=== PATIENT | female | born 1940 | race Caucasian/White ===

== ENCOUNTER → 2016-09-18 | Outpatient (CLI) | payer MEDICARE, BC ==
[~2016-09-18] MED LIST: ACET325 PO; ALPR0.5T99 PO; ASPI81 PO; ATEN1TAB75 PO; B COTAB7 PO; CALC600T34 PO; CIPR500T4 PO; GUAN1 PO; MAXZ25 PO; METR500I3 PO; ROSU5 PO; TELM40 PO
== END ==
LOC: PLAB 10:32
PROVIDERS: ATTEND Podiatrist Foot & Ankle Surgery
DX: M10.071 Idiopathic gout, right ankle and foot (principal)
CPT/HCPCS: 36415; 84550

== ENCOUNTER → 2016-11-12 | Outpatient (CLI) | payer MEDICARE, BC ==
[2016-11-12 09:02] LABS: HEMATOCRIT 38.6 % (35.0-46.0); MEAN CELL VOLUME 89.7 FL (80.0-100.0); MEAN CORPUSCULAR HEMOGLOBIN 29.9 PG (27.0-34.0); MEAN CORPUSCULAR HGB CONC 33.3 % (32.0-36.0); PLATELET COUNT 191 TH/MM3 (150-450); RED CELL DISTRIBUTION WIDTH 14.5 % (11.6-17.2); REVIEW FLAG FINAL; WHITE BLOOD COUNT 4.3 TH/MM3 (4.0-11.0)
[2016-11-12 10:44] LABS: ALKALINE PHOSPHATASE 67 U/L (45-117); ALT (GPT) 26 U/L (10-53); ANION GAP 9 MEQ/L (5-15); AST (GOT) 20 U/L (15-37); BICARBONATE 24.8 MEQ/L (21.0-32.0); BLOOD UREA NITROGEN 23 MG/DL (7-18); CHLORIDE 104 MEQ/L (98-107); GLOMERULAR FILTRATION RATE 49 ML/MIN (>89); GLUCOSE,FASTING 99 MG/DL (74-99); HDL CHOLESTEROL 38.2 MG/DL (40.0-60.0); LDL CHOLESTEROL 83 MG/DL (0-99); LDL CHOLESTEROL DIRECT 109 MG/DL (0-99); POTASSIUM 4.9 MEQ/L (3.5-5.1); SODIUM (NA) 138 MEQ/L (136-145); TOTAL BILIRUBIN ADULT 0.4 MG/DL (0.2-1.0); URIC ACID 9.7 MG/DL (2.6-6.0)
== END ==
LOC: PLAB 07:44
PROVIDERS: ATTEND Internal Medicine
DX: M10.40 Other secondary gout, unspecified site (principal); I10 Essential (primary) hypertension; E78.5 Hyperlipidemia, unspecified
CPT/HCPCS: 36415; 80053; 80061; 83721; 84550; 85027

== ENCOUNTER → 2017-02-12 | Outpatient (CLI) | payer MEDICARE, BC | LOC: PLAB 11:31 | PROVIDERS: ATTEND Internal Medicine | DX: M10.00 Idiopathic gout, unspecified site (principal) | CPT/HCPCS: 36415; 84550 ==

== ENCOUNTER → 2017-03-11 | Outpatient (CLI) | payer MEDICARE, BC ==
[2017-03-11 09:18] LABS: HEMATOCRIT 38.2 % (35.0-46.0); MEAN CELL VOLUME 94.3 FL (80.0-100.0); MEAN CORPUSCULAR HEMOGLOBIN 30.9 PG (27.0-34.0); MEAN CORPUSCULAR HGB CONC 32.7 % (32.0-36.0); PLATELET COUNT 203 TH/MM3 (150-450); RED BLOOD COUNT 4.05 MIL/MM3 (4.00-5.30); RED CELL DISTRIBUTION WIDTH 15.4 % (11.6-17.2); REVIEW FLAG FINAL; WHITE BLOOD COUNT 4.3 TH/MM3 (4.0-11.0)
[2017-03-11 09:37] LABS: ALT (GPT) 21 U/L (10-53); ANION GAP 10 MEQ/L (5-15); AST (GOT) 19 U/L (15-37); BICARBONATE 24.3 MEQ/L (21.0-32.0); BLOOD UREA NITROGEN 21 MG/DL (7-18); CHLORIDE 102 MEQ/L (98-107); GLOMERULAR FILTRATION RATE 54 ML/MIN (>89); GLUCOSE,FASTING 102 MG/DL (74-99); SODIUM (NA) 136 MEQ/L (136-145); URIC ACID 6.3 MG/DL (2.6-6.0)
[2017-03-11 09:45] LABS: ALKALINE PHOSPHATASE 64 U/L (45-117); HDL CHOLESTEROL 39.7 MG/DL (40.0-60.0); LDL CHOLESTEROL 71 MG/DL (0-99); LDL CHOLESTEROL DIRECT 93 MG/DL (0-99); TOTAL BILIRUBIN ADULT 0.3 MG/DL (0.2-1.0)
== END ==
LOC: PLAB 07:47
PROVIDERS: ATTEND Internal Medicine
DX: I10 Essential (primary) hypertension (principal); E78.5 Hyperlipidemia, unspecified
CPT/HCPCS: 36415; 80053; 80061; 83721; 84550; 85027

== ENCOUNTER 2017-04-12 11:26 | Inpatient (IN) | payer MEDICARE, BC ==
[~2017-04-12] VITALS: Ht 157.5 cm; Wt 82.5 kg
[2017-04-12] VITALS (7 sets, daily range): BP systolic 144–191; BP diastolic 79–100; PULSE 68–81; RESP 16–18; TEMP 96.5–98.6; O2SAT 96–98
--- NOTE | 2017-04-12 11:40 | PD ---
HPI Chief Complaint: Abdominal Pain Time Seen by Provider: 11:36 Travel History International Travel<30 days: No Contact w/Intl Traveler<30days: No Traveled to known affect area: No History of Present Illness HPI This patient complains of abdominal pain. Location is left lower quadrant. Symptoms are severe. Duration 2.5 hours. She has nausea but no active vomiting or diarrhea or rectal bleeding or fever. She has history of diverticulitis and thinks it may be that acting up again. Symptoms have no alleviating factors. PFSH Past Medical History Arthritis: Yes (generalized) Asthma: No Blood Disorders: No Anxiety: Yes Heart Rhythm Problems: Yes (tachycardia) Cancer: No Cardiovascular Problems: Yes High Cholesterol: No Chemotherapy: No Chest Pain: No Congestive Heart Failure: No COPD: No Cerebrovascular Accident: Yes (two previous TIAs) Diabetes: No Diminished Hearing: No Diverticulitis: Yes Endocrine: No Gastrointestinal Disorders: Yes GERD: Yes Genitourinary: No Headaches: Yes Hiatal Hernia: No Hypertension: Yes Immune Disorder: No Kidney Stones: No Musculoskeletal: Yes Neurologic: Yes (5 MM BRAIN ANEURYSM) Psychiatric: Yes Reproductive: No Respiratory: No Migraines: No Myocardial Infarction: Yes (X 1 IN 2004) Radiation Therapy: No Renal Failure: No Seizures: No Thyroid Disease: No Ulcer: No Tetanus Vaccination: > 5 Years Influenza Vaccination: Yes ?: Not Menopausal: Yes Past Surgical History Abdominal Surgery: Yes (RECTAL FISSURE REPAIRED 1990) AICD: No Arteriovenous Shunt: No Body Medical Devices: 2 STENTS Cardiac Surgery: Yes (ANGIOPLASTY IN SEP 2004) Cholecystectomy: Yes (IN 1990) Coronary Stent: Yes (X 2) Insulin Pump: No Joint Replacement: No Pacemaker: No Tonsillectomy: Yes Other Surgery: Yes (PELVIC SLINGS TIMES 2) Social History Alcohol Use: No Tobacco Use: No Substance Use: No Allergies-Medications (Allergen,Severity, Reaction): Coded Allergies: FD and C yellow no.10 (quinoline ye (Unverified Allergy, Severe, 04/12/17) FD and C yellow no.6 (sunset yellow (Unverified Allergy, Severe, 04/12/17) Iodinated Contrast- Oral and IV Dye (Verified Allergy, Severe, Anaphylaxis , 04/12/17) codeine (Unverified Allergy, Severe, Nausea/Vomiting, 04/12/17) red dye (Unverified Allergy, Severe, 04/12/17) diazepam (Unverified Allergy, Intermediate, 04/12/17) adhesive (Unverified Allergy, Mild, SORES, 04/12/17) levofloxacin (Unverified Allergy, Mild, ITCHING, 04/12/17) buspirone (Unverified Adverse Reaction, Intermediate, 04/12/17) Uncoded Allergies: IV THALIUM TEST ? (Allergy, Mild, 03/21/06) Reported Meds & Prescriptions Reported Meds & Active Scripts Active Reported Flagyl (Metronidazole) 250 Mg Tab 250 Mg PO TID Allopurinol 300 Mg Tab 150 Mg PO DAILY Colchicine 0.6 Mg Tab 0.6 Mg PO DIRECTED Xanax (Alprazolam) 0.5 Mg Tab 0.5 Mg PO Q8H PRN Aspirin EC (Aspirin) 81 Mg Tabdr 81 Mg PO BID Rosuvastatin (Rosuvastatin Calcium) 5 Mg Tab 5 Mg PO 3X WEEK Triamterene-Hydrochlorothiazide 37.5-25 Mg Tab 1 Tab PO THREE X WEEKLY Guanfacine (Guanfacine HCl) 1 Mg Tab 1 Mg PO HS Do not crush, chew or divide tablet. Take with a meal. Atenolol 50 Mg Tab 50 Mg PO DAILY Telmisartan 40 Mg Tab 40 Mg PO DAILY Review of Systems General / Constitutional: No: Fever Eyes: No: Visual changes HENT: No: Headaches Cardiovascular: No: Chest Pain or Discomfort Respiratory: No: Shortness of Breath Gastrointestinal: Positive: Nausea, Abdominal Pain Genitourinary: No: Dysuria Musculoskeletal: No: Pain Skin: No Rash Neurologic: No: Weakness Psychiatric: No: Depression Endocrine: No: Polydipsia Hematologic/Lymphatic: No: Easy Bruising Physical Exam Narrative GENERAL: Well-nourished, well-developed patient with abdominal pain. SKIN: Focused skin assessment reveals no rash and nodules. Skin is Warm and dry. HEAD: Atraumatic. Normocephalic. EYES: Pupils equal and round. No scleral icterus. No injection or drainage. ENT: No nasal bleeding or discharge. Mucous membranes pink and moist. NECK: Trachea midline. No JVD. CARDIOVASCULAR: Regular rate and rhythm. No murmur appreciated. RESPIRATORY: No accessory muscle use. Clear to auscultation. Breath sounds equal bilaterally. GASTROINTESTINAL: Abdomen soft, left lower quadrant is very tender but no guarding or rebound, nondistended. Hepatic and splenic margins not palpable. MUSCULOSKELETAL: No obvious deformities. No clubbing. No cyanosis. No edema. NEUROLOGICAL: Awake and alert. No obvious cranial nerve deficits. Motor grossly within normal limits. Normal speech. PSYCHIATRIC: Appropriate mood and affect; insight and judgment normal. Data Data Last Documented VS Vital Signs Date Time Temp Pulse Resp B/P (MAP) Pulse Ox O2 Delivery O2 Flow Rate FiO2 04/12/17 12:21 71 16 177/100 (125) 98 Room Air 04/12/17 11:33 98.3 Orders Orders Complete Blood Count With Diff (04/12/17 11:36) Comprehensive Metabolic Panel (04/12/17 11:36) Lipase (04/12/17 11:36) Prothrombin Time / Inr (Pt) (04/12/17 11:36) Act Partial Throm Time (Ptt) (04/12/17 11:36) Urinalysis - C+S If Indicated (04/12/17 11:36) Iv Access Insert/Monitor (04/12/17 11:36) Ecg Monitoring (04/12/17 11:36) Oximetry (04/12/17 11:36) NPO (04/12/17 11:36) Morphine Inj (Morphine Inj) (04/12/17 11:45) Ondansetron Inj (Zofran Inj) (04/12/17 11:45) Sodium Chloride 0.9% Flush (Ns Flush) (04/12/17 11:45) Ct Abd/Pel W/O Iv Contrast (04/12/17 ) Hydromorphone Pf Inj (Dilaudid Pf Inj) (04/12/17 13:15) Metronidazole 500 Mg Inj (Flagyl 500 Mg (04/12/17 13:15) Ceftazidime Inj (Fortaz Inj) (04/12/17 13:15) Admit Order (Ed Use Only) (04/12/17 13:34) Labs Laboratory Tests Test 04/12/17 11:50 White Blood Count 11.5 TH/MM3 Red Blood Count 4.44 MIL/MM3 Hemoglobin 13.4 GM/DL Hematocrit 40.5 % Mean Corpuscular Volume 91.3 FL Mean Corpuscular Hemoglobin 30.2 PG Mean Corpuscular Hemoglobin Concent 33.1 % Red Cell Distribution Width 15.0 % Platelet Count 250 TH/MM3 Mean Platelet Volume 7.6 FL Neutrophils (%) (Auto) 91.7 % Lymphocytes (%) (Auto) 4.8 % Monocytes (%) (Auto) 3.2 % Eosinophils (%) (Auto) 0.1 % Basophils (%) (Auto) 0.2 % Neutrophils # (Auto) 10.5 TH/MM3 Lymphocytes # (Auto) 0.6 TH/MM3 Monocytes # (Auto) 0.4 TH/MM3 Eosinophils # (Auto) 0.0 TH/MM3 Basophils # (Auto) 0.0 TH/MM3 CBC Comment DIFF FINAL Differential Comment Prothrombin Time 10.7 SEC Prothromb Time International Ratio 1.0 RATIO Activated Partial Thromboplast Time 30.9 SEC Blood Urea Nitrogen 35 MG/DL Creatinine 1.20 MG/DL Random Glucose 117 MG/DL Total Protein 7.7 GM/DL Albumin 3.6 GM/DL Calcium Level 9.6 MG/DL Alkaline Phosphatase 66 U/L Aspartate Amino Transf (AST/SGOT) 16 U/L Alanine Aminotransferase (ALT/SGPT) 19 U/L Total Bilirubin 0.4 MG/DL Sodium Level 135 MEQ/L Potassium Level 4.2 MEQ/L Chloride Level 103 MEQ/L Carbon Dioxide Level 21.6 MEQ/L Anion Gap 10 MEQ/L Estimat Glomerular Filtration Rate 44 ML/MIN Lipase 186 U/L MDM Medical Decision Making Medical Screen Exam Complete: Yes Emergency Medical Condition: Yes Medical Record Reviewed: Yes Differential Diagnosis Diverticulitis, obstruction, perforation, abscess Narrative Course I have reviewed the patient's electronic medical record. Patient's last visit for abdominal discomfort was 2013 IV placed I gave her IV morphine and IV Zofran for symptom relief She is very hypertensive at this will be reevaluated after pain medication CBC shows significant leukocytosis of 27,000 metabolic profile is normal LFT's are normal lipase is normal CT of abdomen and pelvis was done and reviewed with admitting physician Dr. Sarahi Walls. She has severe diverticulitis changes with some abscess and perforation findings. She requests admission to the main hospital. I have given the patient IV Fortaz and IV Flagyl noting her allergy to fluoroquinolones. I gave an additional half milligram IV Dilaudid for pain relief. Her abdomen is soft but she has tenderness. No rigidity or guarding. She requests I place consultation with radiology for CT-guided drainage of abscess which I have done. Diagnosis Primary Impression: Diverticulitis of both large and small intestine with perforation and abscess Qualified Codes: K57.40 - Diverticulitis of both small and large intestine with perforation and abscess without bleeding Admitting Information Admitting Physician Requests: Admit Ruben Andrew MD Apr 12, 2017 11:40
[2017-04-12] MEDS ORDERED: COLC1TAB15 PO (11:41)
[2017-04-12] MEDS ORDERED: ROSU1TAB4 PO (11:41)
[2017-04-12] MEDS ORDERED: ASPI81TA11 PO (11:41)
[2017-04-12] MEDS ORDERED: ATEN50TA PO (11:41)
[2017-04-12] MEDS ORDERED: TELM1TAB PO (11:41)
[2017-04-12] MEDS ORDERED: TRIA37.5 PO (11:41)
[2017-04-12] MEDS ORDERED: GUAN1TAB PO (11:41)
[2017-04-12] MEDS ORDERED: ALPR.5 PO (11:41)
[2017-04-12] MEDS ORDERED: METR250 PO (11:41)
[2017-04-12] MEDS ORDERED: ALLO300T2 PO (11:41)
[2017-04-12] MEDS ORDERED: ONDANSETRON HCL 4 MG/2 ML VIAL IVP ONE (11:45)
[2017-04-12] MEDS ORDERED: MORPHINE SULFATE 4 MG/ML INJ IV PUSH ONE (11:45)
[2017-04-12] MEDS ORDERED: SODIUM CHLORIDE 0.9% FLUSH 10 ML FLUSH IV FLUSH PRN (11:45)
[2017-04-12 11:57] LABS: AUTOMATED NEUTROPHIL # 10.5 TH/MM3 (1.8-7.7); BASOPHIL % 0.2 % (0.0-2.0); EOSINOPHIL % 0.1 % (0.0-4.0); HEMATOCRIT 40.5 % (35.0-46.0); LYMPH % 4.8 % (9.0-44.0); LYMPHOCYTE # 0.6 TH/MM3 (1.0-4.8); MEAN CELL VOLUME 91.3 FL (80.0-100.0); MEAN CORPUSCULAR HEMOGLOBIN 30.2 PG (27.0-34.0); MEAN CORPUSCULAR HGB CONC 33.1 % (32.0-36.0); MONO % 3.2 % (0.0-8.0); NEUT % 91.7 % (16.0-70.0); PLATELET COUNT 250 TH/MM3 (150-450); RED BLOOD COUNT 4.44 MIL/MM3 (4.00-5.30); WHITE BLOOD COUNT 11.5 TH/MM3 (4.0-11.0)
[2017-04-12 12:03] LABS: HEMO FLAGS DIFF FINAL
[2017-04-12 12:06] LABS: CHLORIDE 103 MEQ/L (98-107); POTASSIUM 4.2 MEQ/L (3.5-5.1); SODIUM (NA) 135 MEQ/L (136-145)
[2017-04-12 12:10] LABS: ANION GAP 10 MEQ/L (5-15); APTT (PATIENT) 30.9 SEC (24.3-30.1); BICARBONATE 21.6 MEQ/L (21.0-32.0); BLOOD UREA NITROGEN 35 MG/DL (7-18); PROTHROMBIN TIME - PATIENT 10.7 SEC (9.8-11.6)
[2017-04-12 12:13] LABS: ALT (GPT) 19 U/L (10-53); AST (GOT) 16 U/L (15-37); GLOMERULAR FILTRATION RATE 44 ML/MIN (>89)
[2017-04-12 12:15] LABS: TOTAL BILIRUBIN ADULT 0.4 MG/DL (0.2-1.0)
[2017-04-12 12:16] LABS: ALKALINE PHOSPHATASE 66 U/L (45-117)
--- NOTE | 2017-04-12 12:59 | RADRPT ---
EXAM DATE/TIME: 04/12/2017 12:43 [facility] COMPARISON: No previous studies available for comparison. INDICATIONS : Acute left sided abdomen pain with nausea. ORAL CONTRAST: No oral contrast ingested. RADIATION DOSE: 14.30 CTDIvol (mGy) MEDICAL HISTORY : Cardiovascular disease. Cerebrovascular disease. Gastroesophageal reflux disease. SURGICAL HISTORY : Coronary artery stent. Cholecystectomy.Rectal fissure repair. ENCOUNTER: Initial ACUITY: 1 day PAIN SCALE: 6/10 LOCATION: Left abdomen TECHNIQUE: Volumetric scanning of the abdomen and pelvis was performed. Using automated exposure control and ad justment of the mA and/or kV according to patient size, radiation dose was kept as low as reasonably achievable to obtain optimal diagnostic quality images. DICOM format image data is available electro nically for review and comparison. FINDINGS: Lung bases are clear. Coronary artery calcification identified, and there is atherosclerotic calcific ation of the aorta and iliac vessels noted. Urinary bladder, uterus and ovaries are unremarkable. The re is diverticulosis of the sigmoid colon and descending colon. There are extensive inflammatory hung ges in the pericolonic fat posterior to the descending colon with foci of free air seen posteriorly i n the left paracolic or, at well as in error and fluid collection posterior to the descending colon c haracteristic of an abscess. On axial image 53 of series 2 this measures 4.8 x 1.6 cm. It extends tejinder roximately 7.2 cm in cephalocaudal dimension on coronal image 53 and this is consistent with perforat ed diverticulitis with abscess formation. The adrenals, spleen, pancreas, kidneys, liver are unremark able. The patient is status post cholecystectomy. The osseous structures are intact. CONCLUSION: 1. Descending colonic diverticulitis with abscess formation and a few scattered foci of free air and fluid characteristic of perforation. 2. Severe sigmoid diverticulosis. 3. Atherosclerosis. Nakul Rosas MD on April 12, 2017 at 12:55 Board Certified Radiologist. This report was verified electronically.
[2017-04-12] MEDS ORDERED: metroNIDAZOLE 500 MG INJ 100 ML IV ONE (13:15)
[2017-04-12] MEDS ORDERED: HYDROmorphone HCL PF 1 MG/ML VIAL IVS ONE (13:15)
[2017-04-12] MEDS ORDERED: cefTAZidime INJ 2,000 MG in SODIUM CHLORIDE 0.9% INJ 100 ML IV ONE (13:15)
[2017-04-12] MEDS ORDERED: SODIUM CHLOR 0.9% 1000 ML INJ 1,000 ML IV ONE (15:45)
[2017-04-12] MEDS ORDERED: HYDROmorphone HCL PF 1 MG/ML VIAL IV PUSH ONE (15:45)
[2017-04-12] MEDS ORDERED: MORPHINE SULFATE 4 MG/ML INJ IV PRN (17:45)
[2017-04-12] MEDS: DEXT 5%-NACL 0.9% 1000 ML INJ 1,000 ML IV SCH (17:46)
[2017-04-12 18:34] LABS: BLOOD, URINE NEG (NEG); COMMENT (UR) CULT NOT INDICATED; CULTURE IF INDICATED CULT NOT INDICATED; GLUCOSE,URINE NEG (NEG); HYALINE CAST, URINE 1 /lpf (RARE); KETONE, URINE NEG (NEG); NITRITE,URINE NEG (NEG); PH, URINE 5.5 (5.0-8.5); SQUAMOUS EPITHELIAL CELL URINE 1 /hpf (0-5); URINE COLOR YELLOW (YELLW/STRAW)
[2017-04-12] MEDS: HYDROmorphone HCL PF 1 MG/ML VIAL IV PRN ×2 (20:25→23:25)
[2017-04-12] MEDS: cefTAZidime 2,000 MG/NS 100 ML MINIBAG IV SCH ×2 (20:28)
[2017-04-12] MEDS: ONDANSETRON HCL 4 MG/2 ML VIAL IV PUSH PRN (20:33)
[2017-04-13] VITALS: BP 124/76; PULSE 78; RESP 17; TEMP 97; O2SAT 97
[2017-04-13] MEDS: DEXT 5%-NACL 0.9% 1000 ML INJ 1,000 ML IV SCH ×4 (00:40→18:10)
[2017-04-13] MEDS: HYDROmorphone HCL PF 1 MG/ML VIAL IV PRN ×7 (02:30→22:01)
[2017-04-13] MEDS: ONDANSETRON HCL 4 MG/2 ML VIAL IV PUSH PRN ×4 (02:33→22:01)
[2017-04-13] MEDS: cefTAZidime 2,000 MG/NS 100 ML MINIBAG IV SCH ×6 (04:18→19:52)
[2017-04-13 08:00] VITALS: BP 103/66; PULSE 123; RESP 18; TEMP 97.6; O2SAT 94
[2017-04-13] MEDS ORDERED: ASPIRIN EC 81 MG TABEC PO SCH (09:15)
[2017-04-13] MEDS ORDERED: ATENOLOL 50 MG TAB PO SCH (09:15)
--- NOTE | 2017-04-13 09:23 | HHI.PR ---
Subjective Remarks Diverticulitis with microperforation and abscess Still with significant pain Objective Vital Signs Date Time Temp Pulse Resp B/P (MAP) Pulse Ox O2 Delivery O2 Flow Rate FiO2 04/13/17 08:00 97.6 123 18 103/66 (78) 94 04/13/17 00:00 97.0 78 17 124/76 (92) 97 04/12/17 20:00 97.8 81 17 148/80 (102) 97 04/12/17 17:41 18 04/12/17 16:38 96.5 76 16 161/81 (107) 97 04/12/17 16:13 18 04/12/17 15:49 04/12/17 15:38 97.8 75 16 172/88 (116) 98 Room Air 04/12/17 14:20 98.6 68 16 144/79 (100) 96 Room Air 04/12/17 12:21 71 16 177/100 (125) 98 Room Air 04/12/17 11:53 98 Room Air 04/12/17 11:33 98.3 70 18 191/95 (127) 98 Room Air I/O 04/12/17 04/12/17 04/12/17 04/13/17 04/13/17 04/13/17 06:59 14:59 22:59 06:59 14:59 22:59 Intake Total 200 ml 666.3 ml 970.6 ml 0 ml Output Total 650 ml Balance 200 ml 16.3 ml 970.6 ml 0 ml Intake Oral 240 ml 0 ml 0 ml IV Total 200 ml 426.3 ml 970.6 ml Output Urine Total 650 ml # Voids 4 # Bowel Movements 0 Result Diagram: 04/12/17 1150 04/12/17 1150 Objective Remarks Abdomen soft, nondistended, tender No guarding or rebound Assessment and Plan Assessment and Plan CT Guided drainage attempt, hopefully this am Hope for treatment of acute illness with plans for interval colectomy. If patient worsens or fails to improve, we will need to move forward with urgent colectomy with Stewart's pouch and colostomy Sarahi Walls MD Apr 13, 2017 09:23
--- NOTE | 2017-04-13 09:53 | MH ---
cc: NOEL MCDERMOTT M.D., SOUHIEL SICKINGER, BARTON G. DO DATE OF ADMISSION: 04/12/2017 ADMISSION DIAGNOSIS Diverticulitis with microperforation. HISTORY OF PRESENT ILLNESS The patient is a 77-year-old female with a long history of diverticulitis, her most recent episode being about 2-3 months ago. She had severe onset of left lower quadrant pain yesterday morning and she came to the emergency room immediately. She denies any nausea or vomiting. She denies any fevers or chills. She has been moving her bowels regularly, which for her is at least once to twice daily, although she does have quite a bit of straining. She denies any melena or hematochezia. She denies any weight loss. She denies any family history or personal history of colorectal cancer or polyps. Her most recent colonoscopy was about 10-12 years ago but more recently she did have a Cologuard test which was negative. She has had multiple episodes of diverticulitis over a many year period. She states too many to count. PAST MEDICAL HISTORY 1. Coronary artery disease, status post AK approximately 10 years ago. Most recent angiography was last year. She sees Dr. Gillespie. 2. Hypertension. 3. Cerebrovascular disease, status post TIA. 4. Brain aneurysm. 5. Gastroesophageal reflux disease. 6. Gout. PAST SURGICAL HISTORY 1. Laparoscopic cholecystectomy. 2. Anal fissure surgery. 3. Coronary angioplasty with stents. 4. Bladder suspension x2. ALLERGIES 1. CODEINE. 2. DIAZEPAM. 3. LEVAQUIN. 4. BUSPIRONE. 5. CONTRAST. 6. TAPE. 7. VARIOUS RED AND YELLOW DYES. MEDICATIONS 1. Allopurinol. 2. Colchicine. 3. Xanax. 4. Aspirin 81 mg. 5. Rosuvastatin. 6. Triamterene/hydrochlorothiazide. 7. Guaifenesin. 8. Atenolol. 9. Telmisartan. REVIEW OF SYSTEMS Negative for fevers, chills, headaches, chest pain, shortness of breath, difficulty with mood or mentation, difficulty with ambulation. SOCIAL HISTORY The patient denies tobacco or alcohol use. PHYSICAL EXAMINATION GENERAL: An alert white female who appears mildly uncomfortable. NEUROLOGIC: Grossly intact. SKIN: Warm and dry. HEAD: Normocephalic, atraumatic. CARDIOVASCULAR: Regular rate. LUNGS: Breathing is symmetric bilaterally and nonlabored. ABDOMEN: Soft, nondistended. She is tender to palpation on the left, primarily in the left lower quadrant. There is no guarding or rebound. EXTREMITIES: No edema. LABORATORY White count 11.5 on admission, hemoglobin 13.4, platelets 250. Sodium 135, potassium 4.2, chloride 103, bicarb 21.6, BUN 35, creatinine 1.2, glucose 117. Coags are essentially normal. Urinalysis is negative. IMAGING CT scan reveals signs of severe diverticulitis in the left lower quadrant in the descending sigmoid colon with what appears to be microperforation and abscess posterior to the descending colon. IMPRESSION Diverticulitis with microperforation. PLAN She is already on the list to have an attempt at CT-guided drainage of the abscess. A long discussion was undertaken with the patient describing the natural history of diverticulitis, as well as the indications for surgery. Hopefully we can get her through this acute episode and plan for a minimally invasive resection in about 2-3 months. If, however, she worsens or fails to improve, we may have to go forward with more urgent resection which would entail an open surgery with a sigmoid resection, Nathen's procedure and colostomy with a second surgery down the road for reanastomosis. Thank you very much for your kind referral. MD ROSELINE Alexandre/JUSTINE /9:12 AM /9:28 AM GALDINO
[2017-04-13] MEDS: ALPRAZolam 0.5 MG TAB PO PRN ×2 (10:11→19:52)
[2017-04-13 12:00] VITALS: BP 94/65; PULSE 115; RESP 20; TEMP 97.1; O2SAT 95
[2017-04-13 16:00] VITALS: BP 92/65; PULSE 123; RESP 19; TEMP 98.5; O2SAT 95
[2017-04-13 20:00] VITALS: BP 82/53; PULSE 114; RESP 18; TEMP 99.4; O2SAT 93
[2017-04-13] MEDS ORDERED: guanFACINE HCL 1 MG TAB PO SCH (21:00)
[2017-04-14] VITALS: BP 88/58; PULSE 111; RESP 17; TEMP 95.6; O2SAT 94
[2017-04-14] MEDS ORDERED: SODIUM CHLOR 0.9% 250 ML INJ 250 ML IV SCH (03:30)
[2017-04-14 04:32] LABS: AUTOMATED NEUTROPHIL # 7.9 TH/MM3 (1.8-7.7); BASOPHIL % 0.1 % (0.0-2.0); HEMATOCRIT 41.9 % (35.0-46.0); LYMPH % 7.1 % (9.0-44.0); LYMPHOCYTE # 0.6 TH/MM3 (1.0-4.8); MEAN CELL VOLUME 96.3 FL (80.0-100.0); MEAN CORPUSCULAR HEMOGLOBIN 31.6 PG (27.0-34.0); MEAN CORPUSCULAR HGB CONC 32.8 % (32.0-36.0); NEUT % 87.8 % (16.0-70.0); PLATELET COUNT 209 TH/MM3 (150-450); RED BLOOD COUNT 4.35 MIL/MM3 (4.00-5.30); RED CELL DISTRIBUTION WIDTH 15.9 % (11.6-17.2)
[2017-04-14 04:34] LABS: HEMO FLAGS AUTO DIFF
[2017-04-14 04:45] LABS: ANION GAP 10 MEQ/L (5-15); BLOOD UREA NITROGEN 39 MG/DL (7-18); CHLORIDE 111 MEQ/L (98-107); GLOMERULAR FILTRATION RATE 16 ML/MIN (>89); POTASSIUM 4.7 MEQ/L (3.5-5.1); SODIUM (NA) 140 MEQ/L (136-145)
[2017-04-14 04:59] LABS: CREATINE KINASE 1649 U/L (26-192)
[2017-04-14] MEDS ORDERED: KETOROLAC TROMETHAMINE 30 MG/ML (IVP) VIAL IV PUSH PRN (05:00)
--- NOTE | 2017-04-14 05:01 | PD.CONS ---
[facility] By Dr Roe Reason for Consult Hypotension, tachycardia Primary Care Physician Yunier Dowd MD Diagnoses: History of Present Illness History from patient, nursing staff, interview of medical records. Patient was admitted to colorectal surgery service on April 12, 2017. Patient reported that on that particular day, she was having severe left lower quadrant abdominal pain which came on suddenly. Denies any associated nausea/vomiting/diarrhea. She reports that the pain was so severe and this was the main reason why she came to hospital. Denies any fever. Denies any vomiting/diarrhea. Patient denies any associated chest pain/palpitations/dizziness/syncopal episodes. Denies having any blood in her stool or in her urine. Denies coughing out blood. Denies fever. Patient and nursing staff reported the patient was receiving pain medications Dilaudid 0.3 mg almost every 2 hours for her abdominal pain while in hospital. She initially has elevated blood pressures around systolic of 140 to 170s. However by the evening shift, her blood pressure was dropping to as low as 60s over 40s. She was given normal saline bolus of 250 cc after which blood pressure picker tender helper to 103 systolic. She was also having associated tachycardia. Patient does report of history of hypertension for which she takes antihypertensives at home. She has not received any of these medications while in hospital to explain her hypotension. She reports of history of tachycardia. She is not on any blood thinners at home. Review of Systems Except as stated in HPI: all other systems reviewed are Neg Past Family Social History Allergies: Coded Allergies: FD and C yellow no.10 (quinoline ye (Unverified Allergy, Severe, 04/12/17) FD and C yellow no.6 (sunset yellow (Unverified Allergy, Severe, 04/12/17) Iodinated Contrast- Oral and IV Dye (Verified Allergy, Severe, Anaphylaxis , 04/12/17) codeine (Unverified Allergy, Severe, Nausea/Vomiting, 04/12/17) red dye (Unverified Allergy, Severe, 04/12/17) diazepam (Unverified Allergy, Intermediate, 04/12/17) adhesive (Unverified Allergy, Mild, SORES, 04/12/17) levofloxacin (Unverified Allergy, Mild, ITCHING, 04/12/17) buspirone (Unverified Adverse Reaction, Intermediate, 04/12/17) Uncoded Allergies: IV THALIUM TEST ? (Allergy, Mild, 03/21/06) Past Surgical History Hypertension CADstatus post cardiac stents 2 TIA 2 Sinus tachycardia per patient Reported Medications Pelvic left Colonic fissure repair Cholecystectomy Cerebral aneurysm status post surgery 5 years ago. Stated she followed up with Dr. Thompson up until about 4 years ago and was told that she does not need to follow up anymore and that she has symptoms. Family History Denies any family history of any medical conditions that she knows of. Social History Denies smoking/alcohol abuse/drug abuse. Physical Exam Vital Signs Vital Signs Date Time Temp Pulse Resp B/P (MAP) Pulse Ox O2 Delivery O2 Flow Rate FiO2 04/14/17 00:00 95.6 111 17 88/58 (68) 94 04/13/17 20:00 99.4 114 18 82/53 (63) 93 04/13/17 16:00 98.5 123 19 92/65 (74) 95 04/13/17 14:18 18 04/13/17 12:05 18 04/13/17 12:00 97.1 115 20 94/65 (75) 95 04/13/17 08:00 97.6 123 18 103/66 (78) 94 Physical Exam GENERAL: This is a well-nourished, well-developed patient, in moderate distress from pain SKIN: No rashes, ecchymoses or lesions. Cool and dry. HEAD: Atraumatic. Normocephalic. No temporal or scalp tenderness. EYES: No scleral icterus. No injection or drainage. ENT: Nose without bleeding, purulent drainage or septal hematoma Airway patent. NECK: Trachea midline. No JVD CARDIOVASCULAR: Regular rate and rhythm without murmurs, gallops, or rubs. RESPIRATORY: Clear to auscultation. Breath sounds equal bilaterally. No wheezes , rales, or rhonchi. GASTROINTESTINAL: Abdomen soft, non-tender, nondistended. \No guarding. MUSCULOSKELETAL: Extremities without clubbing, cyanosis, or edema. No calf tenderness. NEUROLOGICAL: Awake and alert. Motor and sensory grossly within normal limits. Normal speech. Laboratory Laboratory Tests Test 04/14/17 04:13 White Blood Count 9.0 Red Blood Count 4.35 Hemoglobin 13.8 Hematocrit 41.9 Mean Corpuscular Volume 96.3 Mean Corpuscular Hemoglobin 31.6 Mean Corpuscular Hemoglobin Concent 32.8 Red Cell Distribution Width 15.9 Platelet Count 209 Mean Platelet Volume 7.9 Neutrophils (%) (Auto) 87.8 Lymphocytes (%) (Auto) 7.1 Monocytes (%) (Auto) 5.0 Eosinophils (%) (Auto) 0.0 Basophils (%) (Auto) 0.1 Neutrophils # (Auto) 7.9 Lymphocytes # (Auto) 0.6 Monocytes # (Auto) 0.4 Eosinophils # (Auto) 0.0 Basophils # (Auto) 0.0 CBC Comment AUTO DIFF Blood Urea Nitrogen 39 Creatinine 2.88 Random Glucose 161 Calcium Level 8.3 Sodium Level 140 Potassium Level 4.7 Chloride Level 111 Carbon Dioxide Level 19.0 Anion Gap 10 Estimat Glomerular Filtration Rate 16 Total Creatine Kinase 1649 Troponin I LESS THAN 0.02 Result Diagram: 04/14/17 0413 04/14/17 0413 Imaging Vital Signs Date Time Temp Pulse Resp B/P (MAP) Pulse Ox O2 Delivery O2 Flow Rate FiO2 04/14/17 00:00 95.6 111 17 88/58 (68) 94 04/12/17 15:38 Room Air I/O 04/14/17 04/14/17 04/14/17 07:59 15:59 23:59 Intake Total 1290 ml Balance 1290 ml Assessment and Plan Assessment and Plan Impression: Hypotension with reflex tachycardia- suspect volume Depletion. Also compounded by pain medicine as well. Rhabdomyolysis Acute renal failure- secondary to dehydration possible early septic shock Ruptured diverticula as well as with early abscess formation. No drainable fluid per IR. Procedure was canceled Leukocytosis with left shift and bandemia History of Hypertension CADstatus post cardiac stents 2 TIA 2 Sinus tachycardia per patient Plan: I would give additional 500 cc normal saline bolus. Also continue maintenance IV fluids with D5 normal saline at 1 50 cc per hour. We will recheck labs in a.m. Patient was receiving Ceptazidime We'll switch antibiotics to Zosyn. Hold narcotics. Will manage pain with Toradol 15 mg IV every 6 hours when necessary for now. If the blood pressure permits, we can slowly and small dose pain medications. Patient is quite truly in pain. Hold antihypertensives. Bladder scan to make sure the patient's acute renal failure is not from dehydration. We'll follow CPK, and renal function. If needed, would start patient on bicarbonate drip. We will follow patient along with you. DVT prophylaxiswith heparin. GI prophylaxis on pantoprazole. Discussed Condition With Patient, her nurse, Jasiel Barney MD Apr 14, 2017 05:01
[2017-04-14 05:11] LABS: CKMB 48.7 NG/ML (0.5-3.6)
[2017-04-14] MEDS ORDERED: SODIUM CHLORID 0.9% 500 ML INJ 500 ML IV ONE (05:15)
[2017-04-14 05:16] LABS: BANDS 36 % (0-6); METAMYELOCYTES 13 % (0-1); MYELOCYTES 2 % (0-0); NEUTROPHIL # MANUAL DIFF 7.4 TH/MM3 (1.8-7.7); POLYS (SEG NEUTROPHILS) 31 % (16-70); WBC DIFF SAMPLE 100
[2017-04-14 05:17] LABS: SCAN/DIFF FINAL DIFF MANUAL
[2017-04-14 05:19] LABS: DOHLE BODIES PRESENT (NONE SEEN); PLATELET ESTIMATE SMEAR NORMAL (NORMAL); PLATELET MORPHOLOGY NORMAL (NORMAL); TOXIC VACUOLATION PRESENT (NONE SEEN)
[2017-04-14] MEDS: ONDANSETRON HCL 4 MG/2 ML VIAL IV PUSH PRN (05:33)
[2017-04-14] MEDS ORDERED: PIPERACIL-TAZO 4.5 GM PREMIX 100 ML IV SCH (06:00)
[2017-04-14] MEDS: PIPERACIL-TAZO 3.375 GM PREMIX 50 ML IV SCH ×3 (06:39→17:52)
[2017-04-14 08:00] VITALS: BP 97/60; PULSE 102; RESP 19; TEMP 97.3; O2SAT 95
--- NOTE | 2017-04-14 08:29 | HHI.PR ---
Subjective Remarks Diverticulitis with microperforation and abscess Better this am Objective Vital Signs Date Time Temp Pulse Resp B/P (MAP) Pulse Ox O2 Delivery O2 Flow Rate FiO2 04/14/17 00:00 95.6 111 17 88/58 (68) 94 04/13/17 20:00 99.4 114 18 82/53 (63) 93 04/13/17 16:00 98.5 123 19 92/65 (74) 95 04/13/17 14:18 18 04/13/17 12:05 18 04/13/17 12:00 97.1 115 20 94/65 (75) 95 I/O 04/13/17 04/13/17 04/13/17 04/14/17 04/14/17 04/14/17 07:00 15:00 23:00 07:00 15:00 23:00 Intake Total 970.6 ml 0 ml 2240 ml 1290 ml Output Total 900 ml Balance 970.6 ml 0 ml 1340 ml 1290 ml Intake Oral 0 ml 0 ml 0 ml 0 ml IV Total 970.6 ml 2240 ml 1290 ml Output Urine Total 900 ml # Voids 4 2 # Bowel Movements 0 Result Diagram: 04/14/17 0413 04/14/17 0413 Objective Remarks Abdomen soft, nondistended, slightly less tender LLQ Assessment and Plan Assessment and Plan Unable to drain Improving Continue IV antibiotics, NPO Sarahi Walls MD Apr 14, 2017 08:29
[2017-04-14] MEDS ORDERED: LOSARTAN 50 MG TAB PO SCH (09:00)
[2017-04-14] MEDS: ASPIRIN EC 81 MG TABEC PO SCH (11:10)
[2017-04-14] MEDS: PANTOPRAZOLE SODIUM 40 MG VIAL IV PUSH SCH (11:10)
[2017-04-14] MEDS: ACETAMINOPHEN/HYDROcodone 325 MG/5 MG TAB PO PRN ×3 (11:19→20:25)
[2017-04-14 12:00] VITALS: BP 108/60; PULSE 97; RESP 20; TEMP 98.7; O2SAT 94
[2017-04-14] MEDS: HEPARIN SODIUM - SQ 10,000 UNITS/ML VIAL SQ SCH ×2 (14:23→20:25)
[2017-04-14 16:00] VITALS: BP 127/72; PULSE 97; RESP 20; TEMP 97.6; O2SAT 95
[2017-04-14 16:57] LABS: AUTOMATED NEUTROPHIL # 7.3 TH/MM3 (1.8-7.7); BASOPHIL % 0.1 % (0.0-2.0); EOSINOPHIL % 0.1 % (0.0-4.0); HEMATOCRIT 40.1 % (35.0-46.0); HEMO FLAGS DIFF FINAL; LYMPH % 3.7 % (9.0-44.0); LYMPHOCYTE # 0.3 TH/MM3 (1.0-4.8); MEAN CELL VOLUME 96.9 FL (80.0-100.0); MEAN CORPUSCULAR HEMOGLOBIN 30.8 PG (27.0-34.0); MEAN CORPUSCULAR HGB CONC 31.8 % (32.0-36.0); MONO % 2.2 % (0.0-8.0); NEUT % 93.9 % (16.0-70.0); PLATELET COUNT 209 TH/MM3 (150-450); RED BLOOD COUNT 4.14 MIL/MM3 (4.00-5.30); RED CELL DISTRIBUTION WIDTH 16.5 % (11.6-17.2); WHITE BLOOD COUNT 7.8 TH/MM3 (4.0-11.0)
[2017-04-14 17:33] LABS: ALKALINE PHOSPHATASE 43 U/L (45-117); ALT (GPT) 34 U/L (10-53); ANION GAP 8 MEQ/L (5-15); AST (GOT) 65 U/L (15-37); BLOOD UREA NITROGEN 45 MG/DL (7-18); CHLORIDE 112 MEQ/L (98-107); CREATINE KINASE 822 U/L (26-192); GLOMERULAR FILTRATION RATE 17 ML/MIN (>89); POTASSIUM 3.8 MEQ/L (3.5-5.1); SODIUM (NA) 140 MEQ/L (136-145); TOTAL BILIRUBIN ADULT 0.3 MG/DL (0.2-1.0)
[2017-04-14] MEDS: ALPRAZolam 0.5 MG TAB PO PRN (17:56)
[2017-04-14 17:57] LABS: CKMB 28.9 NG/ML (0.5-3.6)
--- NOTE | 2017-04-14 18:04 | EKG ---
Date Performed: 04/14/2017 Time Performed: 03:43:52 PTAGE: 77 years EKG: Sinus tachycardia. Nondiagnostic Q wavs in the inferior leads Low QRS voltages in precordia l leads which may be due to lead placement Abnormal ECG PREVIOUS TRACING : 11/05/2011 03.26 DOCTOR: Franklin Gonzalez Interpretating Date/Time 04/14/2017 18:03:02
[2017-04-14 20:00] VITALS: BP 145/74; PULSE 103; PULSE 99; RESP 20; TEMP 97.6; O2SAT 94
[2017-04-14 22:09] LABS: AUTOMATED NEUTROPHIL # 8.2 TH/MM3 (1.8-7.7); BASOPHIL % 0.1 % (0.0-2.0); HEMATOCRIT 39.5 % (35.0-46.0); LYMPH % 3.4 % (9.0-44.0); LYMPHOCYTE # 0.3 TH/MM3 (1.0-4.8); MEAN CORPUSCULAR HEMOGLOBIN 31.1 PG (27.0-34.0); MEAN CORPUSCULAR HGB CONC 32.1 % (32.0-36.0); MONO % 2.5 % (0.0-8.0); PLATELET COUNT 190 TH/MM3 (150-450); RED BLOOD COUNT 4.07 MIL/MM3 (4.00-5.30); RED CELL DISTRIBUTION WIDTH 16.3 % (11.6-17.2); WHITE BLOOD COUNT 8.7 TH/MM3 (4.0-11.0)
[2017-04-14 22:10] LABS: HEMO FLAGS AUTO DIFF
[2017-04-14 22:29] LABS: ALT (GPT) 33 U/L (10-53); ANION GAP 12 MEQ/L (5-15); AST (GOT) 57 U/L (15-37); BICARBONATE 18.6 MEQ/L (21.0-32.0); BLOOD UREA NITROGEN 43 MG/DL (7-18); CHLORIDE 112 MEQ/L (98-107); GLOMERULAR FILTRATION RATE 19 ML/MIN (>89); POTASSIUM 3.6 MEQ/L (3.5-5.1); SODIUM (NA) 143 MEQ/L (136-145)
[2017-04-14 22:32] LABS: ALKALINE PHOSPHATASE 45 U/L (45-117); CREATINE KINASE 825 U/L (26-192); TOTAL BILIRUBIN ADULT 0.3 MG/DL (0.2-1.0)
[2017-04-14 22:41] LABS: BANDS 11 % (0-6); METAMYELOCYTES 2 % (0-1); NEUTROPHIL # MANUAL DIFF 8.6 TH/MM3 (1.8-7.7); POLYS (SEG NEUTROPHILS) 86 % (16-70); SCAN/DIFF FINAL DIFF MANUAL; WBC DIFF SAMPLE 100
[2017-04-14 22:50] LABS: CKMB 25.8 NG/ML (0.5-3.6)
[2017-04-15] VITALS (14 sets, daily range): BP systolic 124–157; BP diastolic 64–84; PULSE 68–125; RESP 14–28; TEMP 96.4–98.1; O2SAT 94–98
[2017-04-15] MEDS: PIPERACIL-TAZO 3.375 GM PREMIX 50 ML IV SCH ×3 (00:17→17:49)
[2017-04-15] MEDS: ACETAMINOPHEN/HYDROcodone 325 MG/5 MG TAB PO PRN (02:38)
[2017-04-15 04:27] LABS: AUTOMATED NEUTROPHIL # 8.8 TH/MM3 (1.8-7.7); BASOPHIL % 0.1 % (0.0-2.0); EOSINOPHIL % 0.1 % (0.0-4.0); HEMATOCRIT 39.2 % (35.0-46.0); LYMPH % 3.3 % (9.0-44.0); LYMPHOCYTE # 0.3 TH/MM3 (1.0-4.8); MEAN CELL VOLUME 97.2 FL (80.0-100.0); MEAN CORPUSCULAR HEMOGLOBIN 31.3 PG (27.0-34.0); MEAN CORPUSCULAR HGB CONC 32.2 % (32.0-36.0); MONO % 2.8 % (0.0-8.0); NEUT % 93.7 % (16.0-70.0); PLATELET COUNT 156 TH/MM3 (150-450); RED BLOOD COUNT 4.03 MIL/MM3 (4.00-5.30); RED CELL DISTRIBUTION WIDTH 16.4 % (11.6-17.2); WHITE BLOOD COUNT 9.4 TH/MM3 (4.0-11.0)
[2017-04-15 04:29] LABS: HEMO FLAGS AUTO DIFF
[2017-04-15 04:41] LABS: ALT (GPT) 33 U/L (10-53); ANION GAP 9 MEQ/L (5-15); AST (GOT) 54 U/L (15-37); BICARBONATE 16.9 MEQ/L (21.0-32.0); BLOOD UREA NITROGEN 41 MG/DL (7-18); CHLORIDE 117 MEQ/L (98-107); GLOMERULAR FILTRATION RATE 23 ML/MIN (>89); MAGNESIUM 1.8 MG/DL (1.5-2.5); POTASSIUM 3.9 MEQ/L (3.5-5.1); SODIUM (NA) 143 MEQ/L (136-145)
[2017-04-15 04:50] LABS: ALKALINE PHOSPHATASE 46 U/L (45-117); CREATINE KINASE 428 U/L (26-192); FREE T4 0.98 NG/DL (0.76-1.46); TOTAL BILIRUBIN ADULT 0.3 MG/DL (0.2-1.0)
[2017-04-15 05:02] LABS: CKMB 20.5 NG/ML (0.5-3.6)
[2017-04-15 06:21] LABS: BANDS 24 % (0-6); METAMYELOCYTES 1 % (0-1); NEUTROPHIL # MANUAL DIFF 8.4 TH/MM3 (1.8-7.7); POLYS (SEG NEUTROPHILS) 63 % (16-70); PROMYELOCYTES 1 % (0-0); WBC DIFF SAMPLE 100
[2017-04-15 06:22] LABS: PLATELET ESTIMATE SMEAR NORMAL (NORMAL); PLATELET MORPHOLOGY NORMAL (NORMAL); SCAN/DIFF FINAL DIFF MANUAL
[2017-04-15] MEDS: HEPARIN SODIUM - SQ 10,000 UNITS/ML VIAL SQ SCH ×2 (06:30→16:12)
[2017-04-15] MEDS ORDERED: ATENOLOL 50 MG TAB PO ONE (07:30)
[2017-04-15] MEDS: DEXT 5%-NACL 0.9% 1000 ML INJ 1,000 ML IV SCH (08:37)
[2017-04-15] MEDS ORDERED: TRIAMTERENE/HCTZ 37.5 MG/25 MG TAB PO SCH (09:00)
--- NOTE | 2017-04-15 10:26 | HHI.PR ---
Subjective Remarks Diverticulitis with microperforation and abscess abdominal pain better, but feels 'bad' Denies chest pain, headache, sob Objective Vital Signs Date Time Temp Pulse Resp B/P (MAP) Pulse Ox O2 Delivery O2 Flow Rate FiO2 04/15/17 09:50 98 04/15/17 09:40 96.4 115 28 124/70 (88) 96 04/15/17 03:50 96.6 82 18 142/71 (94) 96 04/15/17 00:12 96.4 88 18 134/82 (99) 95 04/14/17 21:25 18 04/14/17 20:00 97.6 103 20 145/74 (97) 94 04/14/17 20:00 99 04/14/17 16:00 97.6 97 20 127/72 (90) 95 04/14/17 12:00 98.7 97 20 108/60 (76) 94 I/O 04/14/17 04/14/17 04/14/17 04/15/17 04/15/17 04/15/17 07:00 15:00 23:00 07:00 15:00 23:00 Intake Total 1290 ml 0 ml 0 ml 0 ml Output Total 1000 ml Balance 1290 ml 0 ml -1000 ml 0 ml Intake Oral 0 ml 0 ml 0 ml 0 ml IV Total 1290 ml Output Urine Total 1000 ml # Voids 2 2 # Bowel Movements 0 0 Result Diagram: 04/15/17 0403 04/15/17 0403 Objective Remarks Abdomen soft, nondistended, less tender LLQ Work of breathing increased Neuro - symmetric, appears intact Assessment and Plan Assessment and Plan Diverticulitis appears to be clearing Now in Afib,RVR Appreciate Dr. Johnson and Dr. Russo's assistance Sarahi Walls MD Apr 15, 2017 10:26
[2017-04-15] MEDS ORDERED: DILTIAZEM HCL 25 MG/5 ML VIAL IV PUSH ONE (10:30)
[2017-04-15] MEDS ORDERED: DILTIAZEM INJ 125 MG in SODIUM CHLORIDE 0.9% INJ 100 ML IV PRN (10:30)
--- NOTE | 2017-04-15 10:38 | HHI.PR ---
Subjective Remarks Patient was admitted to colorectal surgery service on April 12, 2017. Patient reported that on that particular day, she was having severe left lower quadrant abdominal pain which came on suddenly. Denies any associated nausea/vomiting/diarrhea. She reports that the pain was so severe and this was the main reason why she came to hospital. Denies any fever. Denies any vomiting/diarrhea. Patient denies any associated chest pain/palpitations/dizziness/syncopal episodes. Denies having any blood in her stool or in her urine. Denies coughing out blood. Denies fever. Patient and nursing staff reported the patient was receiving pain medications Dilaudid 0.3 mg almost every 2 hours for her abdominal pain while in hospital. She initially has elevated blood pressures around systolic of 140 to 170s. However by the evening shift, her blood pressure was dropping to as low as 60s over 40s. 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 She was also having associated tachycardia. Patient does report of history of hypertension for which she takes antihypertensives at home. She has not received any of these medications while in hospital to explain her hypotension. She reports of history of tachycardia. She is not on any blood thinners at home. 9-7 called to see patient patient noted to be in A. fib with RVR will give Cardizem IV and placed on Cardizem drip and transferred to the ICU Consult cardiology. Will get a cardiac echo. We will trend troponins and cardiac enzymes We'll get an ABG Discussed with Dr. Walls of CRS Objective Vitals Vital Signs Date Time Temp Pulse Resp B/P (MAP) Pulse Ox O2 Delivery O2 Flow Rate FiO2 04/15/17 09:50 98 04/15/17 09:40 96.4 115 28 124/70 (88) 96 04/15/17 03:50 96.6 82 18 142/71 (94) 96 04/15/17 00:12 96.4 88 18 134/82 (99) 95 04/14/17 21:25 18 04/14/17 20:00 97.6 103 20 145/74 (97) 94 04/14/17 20:00 99 04/14/17 16:00 97.6 97 20 127/72 (90) 95 04/14/17 12:00 98.7 97 20 108/60 (76) 94 I/O 04/14/17 04/14/17 04/14/17 04/15/17 04/15/17 04/15/17 07:00 15:00 23:00 07:00 15:00 23:00 Intake Total 1290 ml 0 ml 0 ml 0 ml Output Total 1000 ml Balance 1290 ml 0 ml -1000 ml 0 ml Intake Oral 0 ml 0 ml 0 ml 0 ml IV Total 1290 ml Output Urine Total 1000 ml # Voids 2 2 # Bowel Movements 0 0 Result Diagram: 04/15/17 0403 04/15/17 0403 Other Results Laboratory Tests Test 04/12/17 11:50 04/12/17 17:45 04/14/17 04:13 04/14/17 16:11 White Blood Count 11.5 TH/MM3 9.0 TH/MM3 7.8 TH/MM3 Red Blood Count 4.44 MIL/MM3 4.35 MIL/MM3 4.14 MIL/MM3 Hemoglobin 13.4 GM/DL 13.8 GM/DL 12.8 GM/DL Hematocrit 40.5 % 41.9 % 40.1 % Mean Corpuscular Volume 91.3 FL 96.3 FL 96.9 FL Mean Corpuscular Hemoglobin 30.2 PG 31.6 PG 30.8 PG Mean Corpuscular Hemoglobin Concent 33.1 % 32.8 % 31.8 % Red Cell Distribution Width 15.0 % 15.9 % 16.5 % Platelet Count 250 TH/MM3 209 TH/MM3 209 TH/MM3 Mean Platelet Volume 7.6 FL 7.9 FL 8.0 FL Neutrophils (%) (Auto) 91.7 % 87.8 % 93.9 % Lymphocytes (%) (Auto) 4.8 % 7.1 % 3.7 % Monocytes (%) (Auto) 3.2 % 5.0 % 2.2 % Eosinophils (%) (Auto) 0.1 % 0.0 % 0.1 % Basophils (%) (Auto) 0.2 % 0.1 % 0.1 % Neutrophils # (Auto) 10.5 TH/MM3 7.9 TH/MM3 7.3 TH/MM3 Lymphocytes # (Auto) 0.6 TH/MM3 0.6 TH/MM3 0.3 TH/MM3 Monocytes # (Auto) 0.4 TH/MM3 0.4 TH/MM3 0.2 TH/MM3 Eosinophils # (Auto) 0.0 TH/MM3 0.0 TH/MM3 0.0 TH/MM3 Basophils # (Auto) 0.0 TH/MM3 0.0 TH/MM3 0.0 TH/MM3 CBC Comment DIFF FINAL AUTO DIFF DIFF FINAL Differential Comment FINAL DIFF MANUAL Prothrombin Time 10.7 SEC Prothromb Time International Ratio 1.0 RATIO Activated Partial Thromboplast Time 30.9 SEC Blood Urea Nitrogen 35 MG/DL 39 MG/DL 45 MG/DL Creatinine 1.20 MG/DL 2.88 MG/DL 2.71 MG/DL Random Glucose 117 MG/DL 161 MG/DL 151 MG/DL Total Protein 7.7 GM/DL 5.9 GM/DL Albumin 3.6 GM/DL 1.9 GM/DL Calcium Level 9.6 MG/DL 8.3 MG/DL 8.4 MG/DL Alkaline Phosphatase 66 U/L 43 U/L Aspartate Amino Transf (AST/SGOT) 16 U/L 65 U/L Alanine Aminotransferase (ALT/SGPT) 19 U/L 34 U/L Total Bilirubin 0.4 MG/DL 0.3 MG/DL Sodium Level 135 MEQ/L 140 MEQ/L 140 MEQ/L Potassium Level 4.2 MEQ/L 4.7 MEQ/L 3.8 MEQ/L Chloride Level 103 MEQ/L 111 MEQ/L 112 MEQ/L Carbon Dioxide Level 21.6 MEQ/L 19.0 MEQ/L 20.0 MEQ/L Anion Gap 10 MEQ/L 10 MEQ/L 8 MEQ/L Estimat Glomerular Filtration Rate 44 ML/MIN 16 ML/MIN 17 ML/MIN Lipase 186 U/L Urine Color YELLOW Urine Turbidity HAZY Urine pH 5.5 Urine Specific Nursery 1.021 Urine Protein 30 mg/dL Urine Glucose (UA) NEG mg/dL Urine Ketones NEG mg/dL Urine Occult Blood NEG Urine Nitrite NEG Urine Bilirubin NEG Urine Urobilinogen LESS THAN 2.0 MG/DL Urine Leukocyte Esterase NEG Urine RBC LESS THAN 1 /hpf Urine WBC 1 /hpf Urine Squamous Epithelial Cells 1 /hpf Urine Hyaline Casts 1 /lpf Microscopic Urinalysis Comment CULT NOT INDICATED Differential Total Cells Counted 100 Neutrophils % (Manual) 31 % Band Neutrophils % 36 % Lymphocytes % 13 % Monocytes % 5 % Neutrophils # (Manual) 7.4 TH/MM3 Metamyelocytes 13 % Myelocytes 2 % Toxic Vacuolation PRESENT Dohle Bodies PRESENT Platelet Estimate NORMAL Platelet Morphology Comment NORMAL Red Cell Morphology Comment NORMAL Total Creatine Kinase 1649 U/L 822 U/L Creatine Kinase MB 48.7 NG/ML 28.9 NG/ML Creatine Kinase MB % 3.0 % 3.5 % Troponin I LESS THAN 0.02 NG/ML Test 04/14/17 21:42 04/15/17 04:03 White Blood Count 8.7 TH/MM3 9.4 TH/MM3 Red Blood Count 4.07 MIL/MM3 4.03 MIL/MM3 Hemoglobin 12.7 GM/DL 12.6 GM/DL Hematocrit 39.5 % 39.2 % Mean Corpuscular Volume 97.0 FL 97.2 FL Mean Corpuscular Hemoglobin 31.1 PG 31.3 PG Mean Corpuscular Hemoglobin Concent 32.1 % 32.2 % Red Cell Distribution Width 16.3 % 16.4 % Platelet Count 190 TH/MM3 156 TH/MM3 Mean Platelet Volume 7.6 FL 7.3 FL Neutrophils (%) (Auto) 94.0 % 93.7 % Lymphocytes (%) (Auto) 3.4 % 3.3 % Monocytes (%) (Auto) 2.5 % 2.8 % Eosinophils (%) (Auto) 0.0 % 0.1 % Basophils (%) (Auto) 0.1 % 0.1 % Neutrophils # (Auto) 8.2 TH/MM3 8.8 TH/MM3 Lymphocytes # (Auto) 0.3 TH/MM3 0.3 TH/MM3 Monocytes # (Auto) 0.2 TH/MM3 0.3 TH/MM3 Eosinophils # (Auto) 0.0 TH/MM3 0.0 TH/MM3 Basophils # (Auto) 0.0 TH/MM3 0.0 TH/MM3 CBC Comment AUTO DIFF AUTO DIFF Differential Total Cells Counted 100 100 Neutrophils % (Manual) 86 % 63 % Band Neutrophils % 11 % 24 % Lymphocytes % 1 % 9 % Neutrophils # (Manual) 8.6 TH/MM3 8.4 TH/MM3 Metamyelocytes 2 % 1 % Differential Comment FINAL DIFF MANUAL FINAL DIFF MANUAL Blood Urea Nitrogen 43 MG/DL 41 MG/DL Creatinine 2.43 MG/DL 2.09 MG/DL Random Glucose 145 MG/DL 148 MG/DL Total Protein 5.8 GM/DL 5.8 GM/DL Albumin 1.9 GM/DL 1.7 GM/DL Calcium Level 8.2 MG/DL 7.9 MG/DL Alkaline Phosphatase 45 U/L 46 U/L Aspartate Amino Transf (AST/SGOT) 57 U/L 54 U/L Alanine Aminotransferase (ALT/SGPT) 33 U/L 33 U/L Total Bilirubin 0.3 MG/DL 0.3 MG/DL Sodium Level 143 MEQ/L 143 MEQ/L Potassium Level 3.6 MEQ/L 3.9 MEQ/L Chloride Level 112 MEQ/L 117 MEQ/L Carbon Dioxide Level 18.6 MEQ/L 16.9 MEQ/L Anion Gap 12 MEQ/L 9 MEQ/L Estimat Glomerular Filtration Rate 19 ML/MIN 23 ML/MIN Total Creatine Kinase 825 U/L 428 U/L Creatine Kinase MB 25.8 NG/ML 20.5 NG/ML Creatine Kinase MB % 3.1 % 4.8 % Monocytes % 2 % Promyelocytes 1 % Platelet Estimate NORMAL Platelet Morphology Comment NORMAL Red Cell Morphology Comment NORMAL Phosphorus Level 3.4 MG/DL Magnesium Level 1.8 MG/DL Free Thyroxine 0.98 NG/DL Thyroid Stimulating Hormone 3rd Gen 0.455 uIU/ML Imaging Last Impressions Abdomen/Pelvis CT 04/12/17 0000 Signed Impressions: Service Date/Time: Wednesday, April 12, 2017 12:43 - CONCLUSION: 1. Descending colonic diverticulitis with abscess formation and a few scattered foci of free air and fluid characteristic of perforation. 2. Severe sigmoid diverticulosis. 3. Atherosclerosis. Nakul Rosas MD Objective Remarks GENERAL: Awake and alert but in atrial fibrillation with RVR appears to be in moderate distress-lethargic at this time SKIN: Warm and dry. HEAD: Atraumatic. Normocephalic. EYES: Pupils equal and round. No scleral icterus. No injection or drainage. Extraocular muscles intact ENT: No nasal bleeding or discharge. Mucous membranes pink and moist. Oral mucosa is moist tongue is midline NECK: Trachea midline. No JVD. Supple CARDIOVASCULAR: IRRegular rate and rhythm. In A. fib with RVR S1-S2 no S3 or S4 no heave or thrill or rub RESPIRATORY: No accessory muscle use. Clear to auscultation. Breath sounds equal bilaterally. GASTROINTESTINAL: Abdomen soft but tender left quadrant nondistended. Hepatic and splenic margins not palpable. Some mild rebound MUSCULOSKELETAL: Extremities without clubbing, cyanosis, or edema. No obvious deformities. NEUROLOGICAL: Awake and alert. No obvious cranial nerve deficits. Motor grossly within normal limits. Five out of 5 muscle strength in the arms and legs. Normal speech. PSYCHIATRIC: Appropriate mood and affect; insight and judgment normal. Medications and IVs Current Medications Morphine Sulfate (Morphine Inj) 4 mg ONCE ONCE IV PUSH Last administered on 12:00; Start 04/12/17 at 11:45; Stop 04/12/17 at 11:46; Status DC Ondansetron HCl (Zofran Inj) 4 mg ONCE ONCE IVP Last administered on 04/12/17 11:59; Start 04/12/17 at 11:45; Stop 04/12/17 at 11:46; Status DC Sodium Chloride (NS Flush) 2 ml UNSCH PRN IV FLUSH FLUSH AFTER USING IV ACCESS Last administered on 04/12/17 12:00; Start 04/12/17 at 11:45 Hydromorphone HCl (Dilaudid Pf Inj) 0.5 mg ONCE ONCE IVS Last administered on 04/12/17 13:18; Start 04/12/17 at 13:15; Stop 04/12/17 at 13:16; Status DC Metronidazole 100 ml @ 100 mls/hr ONCE ONCE IV Last administered on 04/12/17 13:18; Start 04/12/17 at 13:15; Stop 04/13/17 at 09:11; Status DC Ceftazidime 2000 mg/Sodium Chloride 100 ml @ 200 mls/hr ONCE ONCE IV Last administered on 04/12/17 14:15; Start 04/12/17 at 13:15; Stop 04/12/17 at 13:44; Status DC Hydromorphone HCl (Dilaudid Pf Inj) 0.5 mg ONCE ONCE IV PUSH Last administered on 04/12/17 15:43; Start 04/12/17 at 15:45; Stop 04/12/17 at 15:46; Status DC Sodium Chloride 1,000 ml @ 2,000 mls/hr Q30M ONCE IV Last administered on 15:42; Start 04/12/17 at 15:45; Stop 04/12/17 at 16:14; Status DC Morphine Sulfate (Morphine Inj) 1 mg Q3H PRN IV PAIN 1-10 Last administered on 04/12/17 17:36; Start 04/12/17 at 17:45; Stop 04/12/17 at 19:28; Status DC Ondansetron HCl (Zofran Inj) 4 mg Q6H PRN IV PUSH NAUSEA Last administered on 05:33; Start 04/12/17 at 17:45 Dextrose/Sodium Chloride 1,000 ml @ 150 mls/hr Q6H40M IV Last administered on 04/15/17 08:37; Start 04/12/17 at 18:00 Ceftazidime 2000 mg/Sodium Chloride 100 ml @ 200 mls/hr Q8H IV Last administered on 04/13/17 19:52; Start 04/12/17 at 22:00; Stop 04/14/17 at 05:03; Status DC Hydromorphone HCl (Dilaudid Pf Inj) 0.3 mg Q3H PRN IV PAIN 1-10 Last administered on 04/13/17 11:35; Start 04/12/17 at 20:00; Stop 04/13/17 at 12:49; Status DC Alprazolam (Xanax) 0.5 mg Q8H PRN PO ANXIETY Last administered on 04/13/17 19: 52; Start 04/13/17 at 09:15; Stop 04/14/17 at 04:57; Status DC Aspirin (Ecotrin Ec) 81 mg BID PO ; Start 04/13/17 at 09:15; Stop 04/13/17 at 12: 48; Status DC Atenolol (Tenormin) 50 mg DAILY PO ; Start 04/13/17 at 09:15; Status Future Hold Guanfacine HCl (Tenex) 1 mg HS PO Last administered on 04/13/17 19:52; Start at 21:00; Stop 04/14/17 at 03:03; Status DC Triamterene/HCTZ (Maxzide 37.5-25 Mg) 1 tab EVERY OTHER DAY PO ; Start 04/15/17 at 09:00; Stop 04/15/17 at 09:00; Status DC Losartan Potassium (Cozaar) 50 mg DAILY PO ; Start 04/14/17 at 09:00; Status Future Hold Aspirin (Ecotrin Ec) 81 mg DAILY PO Last administered on 04/14/17 11:10; Start 04/14/17 at 09:00 Hydromorphone HCl (Dilaudid Pf Inj) 0.3 mg Q2H PRN IV PAIN 1-10 Last administered on 04/13/17 22:01; Start 04/13/17 at 13:00; Stop 04/14/17 at 06:21; Status DC Sodium Chloride 250 ml @ 250 mls/hr UNSCH X1 IV Last administered on 03:26; Start 04/14/17 at 03:30; Stop 04/14/17 at 04:30; Status DC Alprazolam (Xanax) 0.25 mg Q8H PRN PO ANXIETY Last administered on 04/14/17 17: 56; Start 04/14/17 at 09:15 Ketorolac Tromethamine (Toradol Inj) 15 mg Q6H PRN IV PUSH pain >5 Last administered on 04/14/17 05:33; Start 04/14/17 at 05:00; Stop 04/19/17 at 04:59; Status Future Hold Piperacillin Sod/ Tazobactam Sod 100 ml @ 200 mls/hr Q6H IV ; Start 04/14/17 at 06:00; Stop 04/14/17 at 06:00; Status DC Sodium Chloride 500 ml @ 500 mls/hr BOLUS ONCE IV Last administered on 05:33; Start 04/14/17 at 05:15; Stop 04/14/17 at 06:14; Status DC Piperacillin Sod/ Tazobactam Sod 50 ml @ 200 mls/hr Q6H IV Last administered on 04/15/17 06:32; Start 04/14/17 at 06:00 Heparin Sodium (Porcine) (Heparin Inj) 5,000 units Q8HR SQ Last administered on 04/15/17 06:30; Start 04/14/17 at 14:00 Pantoprazole Sodium (Protonix Inj) 40 mg Q24H IV PUSH Last administered on 11:10; Start 04/14/17 at 09:00 Acetaminophen/ Hydrocodone Bitart (Christine 5-325 Mg) 1 tab Q6H PRN PO pain 1-10 Last administered on 04/15/17 02:38; Start 04/14/17 at 08:30 Atenolol (Tenormin) 50 mg STAT ONCE PO Last administered on 04/15/17t 07:21; Start 04/15/17 at 07:30; Stop 04/15/17 at 07:31; Status DC Urinary Catheter: No Vascular Central Line Catheter: No A/P Assessment and Plan Impression: A. fib with RVR-atenolol has been restarted. We'll need to get an Cardizem IV push 20 mg. And HOLD Cardizem drip and transferred to the ICU will consult cardiology and get an echocardiogram and trend troponins Hypotension with reflex tachycardia- suspect volume Depletion. Also compounded by pain medicine as well.-Appears that patient has a history of what sounds like atrial fibrillation Rhabdomyolysis trending down Acute renal failure- secondary to dehydration possible early septic shock Ruptured diverticula as well as with early abscess formation. No drainable fluid per IR. Procedure was canceled Leukocytosis with left shift and bandemia improved on antibiotics History of Hypertension CAD status post cardiac stents 2 TIA 2 Sinus tachycardia per patient Atrial fibrillation with RVR continue on Cardizem drip consult cardiology trend troponins echocardiogram HYPOTENSION- GIVE IV FLUIDS NS BOLUS 1 LITER Plan: Continue IV fluids Also continue maintenance IV fluids with D5 normal saline at 1 50 cc per hour. We will recheck labs in a.m. Adjust medications We'll switch antibiotics to Zosyn. Hold narcotics. Will manage pain will discontinue Toradol Use narcotics for pain control If the blood pressure permits, we can slowly and small dose pain medications. Patient is quite truly in pain. Restart atenolol continue on Cardizem drip Bladder scan to make sure the patient's acute renal failure is not from dehydration. We'll follow CPK, and renal function. If needed, would start patient on bicarbonate drip. We will follow patient along with you. DVT prophylaxiswith heparin. GI prophylaxis on pantoprazole. See orders A.m. labs Transferred to ICU for close monitoring and Cardizem drip Discussed with Dr. Walls of colorectal surgery Gagan Johnson DO Apr 15, 2017 10:38
[2017-04-15 10:40] LABS: BLOOD GAS BASE EXCESS -9.3 mmol/L (-2-2); BLOOD GAS CARBOXYHEMOGLOBIN 1.1 % (0-4); BLOOD GAS HCO3 17 mmol/L (22-26); BLOOD GAS METHEMOGLOBIN 0.5 % (0-2); BLOOD GAS O2 HGB SATURATION 95 % (90-100); BLOOD GAS OXYGEN CONTENT 23.6 Vol % (12.0-20.0); BLOOD GAS PCO2 39 mmHg (38-42); BLOOD GAS PO2 90 mmHg (61-120); BLOOD GAS TOTAL HGB 17.7 G/DL (12.0-16.0); TEMP CORR TO 98.6
[2017-04-15 10:41] LABS: CRITICAL VALUE YES; DRAW SITE RT RADIAL; LITER FLOW 2 L/M; NUMBER OF ARTERIAL PUNCTURES 1; OXYGEN DEVICE NASAL CANNULA; STAT YES; ULNAR PULSE PRESENT
[2017-04-15] MEDS ORDERED: oxyCODONE/ACETAMINOPHEN 5 MG/325 MG TAB PO PRN (10:45)
[2017-04-15] MEDS ORDERED: oxyCODONE/ACETAMINOPHEN 10 MG/325 MG TAB PO PRN (10:45)
[2017-04-15] MEDS ORDERED: MAGNESIUM HYDROXIDE SUSP 30 ML CUP PO PRN (10:45)
[2017-04-15] MEDS ORDERED: Vancomycin Consult Pharmacy 1 EA OTHER SCH (10:45)
[2017-04-15] MEDS ORDERED: VANCOMYCIN INJ 1,250 MG in SODIUM CHLOR 0.9% 250 ML INJ 250 ML IV ONE (10:45)
[2017-04-15] MEDS ORDERED: NALOXONE HCL 0.4 MG/ML AMP IV PRN (10:45)
[2017-04-15] MEDS ORDERED: SENNOSIDES 8.6 MG TAB PO PRN (10:45)
[2017-04-15] MEDS ORDERED: LACTULOSE SYRUP 20 GM/30 ML CUP PO PRN (10:45)
[2017-04-15] MEDS ORDERED: SODIUM CHLORIDE 0.9% FLUSH 10 ML FLUSH IV FLUSH PRN (10:45)
[2017-04-15] MEDS ORDERED: SODIUM CHLOR 0.9% 1000 ML INJ 1,000 ML IV ONE (10:45)
[2017-04-15] MEDS ORDERED: MORPHINE SULFATE 4 MG/ML INJ IV PRN ×2 (10:45)
[2017-04-15] MEDS ORDERED: BISACODYL 10 MG SUPP RECTAL PRN (10:45)
[2017-04-15 11:35] LABS: CREATINE KINASE 251 U/L (26-192)
[2017-04-15 11:47] LABS: CKMB 13.7 NG/ML (0.5-3.6)
--- NOTE | 2017-04-15 12:41 | EKG ---
Date Performed: 04/15/2017 Time Performed: 10:31:37 PTAGE: 77 years EKG: ATRIAL FIBRILLATION WITH RAPID VENTRICULAR RESPONSE NONSPECIFIC T-WAVE ABNORMALITY ABNORMAL ECG PREVIOUS TRACING : 04/14/2017 03.43 DOCTOR: Bakari Smith Interpretating Date/Time 04/15/2017 12:39:55
--- NOTE | 2017-04-15 13:22 | RADRPT ---
EXAM DATE/TIME: 04/14/2017 15:34 COMPARISON: CT ABDOMEN & PELVIS W/O CONTRAST, April 12, 2017, 12:43. INDICATIONS : Evaluate for possible drainge of diverticular abscess. FINDINGS: There is a quit fluid for drainage any well-defined fluid collection is not identified. CONCLUSION: 1. Drainage performed secondary to an inadequate volume Gabriel Taylor MD on April 15, 2017 at 12:39 Board Certified Radiologist. This report was verified electronically.
[2017-04-15] MEDS ORDERED: VANCOMYCIN INJ 1,500 MG in SODIUM CHLORID 0.9% 500 ML INJ 500 ML IV ONE (14:00)
--- NOTE | 2017-04-15 14:32 | PD.CONS ---
History of Present Illness Service Infectious disease Consult Requested By Dr Johnson Reason for Consult Evaluate patient with sepsis, perforated diverticulitis Primary Care Physician Yunier Dowd MD Diagnoses: History of Present Illness Patient seen and examined. Records reviewed. Patient is a 77-year-old female presented to the hospital with an acute onset of left lower quadrant pain. Patient has had previous episodes of diverticulitis, and according to her she usually gets treated on an outpatient basis. This time however the pain was so severe, and so she presented to the hospital for further evaluation and treatment. She denies any nausea or vomiting. There's been no fever or chills. She's been having her regular bowel movements. CT of the abdomen and pelvis showed evidence of diverticulitis in the descending colon with abscess formation. Patient was started on broad-spectrum antibiotic. IR was consulted for possible percutaneous drainage of the abscess, but there was not enough fluid for drainage. Today patient went into rapid A. fib, and had some hypotension. She improved with fluid resuscitation, was started on Cardizem, and currently is in normal sinus rhythm. Her WBC has been normal. She has been afebrile. She still complains of pain in her left lower quadrant. She has not had any bowel movement since admission. Infectious disease consultation has been requested to evaluate the patient. Review of Systems Constitutional: DENIES: Fever, Chills Eyes: DENIES: Eye pain Ears, nose, mouth, throat: DENIES: Nasal discharge, Oral lesions, Throat pain, Ear Pain, Sinus Pain, Toothache Respiratory: DENIES: Cough, Shortness of breath Cardiovascular: DENIES: Chest pain, Palpitations, Syncope Gastrointestinal: COMPLAINS OF: Abdominal pain, DENIES: Diarrhea, Nausea, Vomiting, Difficulty Swallowing Genitourinary: DENIES: Urinary frequency, Urgency, Dysuria Musculoskeletal: DENIES: Joint pain, Joint Swelling, Back pain Integumentary: DENIES: Rash Neurologic: DENIES: Headache Psychiatric: DENIES: Hallucinations Past Family Social History Allergies: Coded Allergies: FD and C yellow no.10 (quinoline ye (Unverified Allergy, Severe, 04/12/17) FD and C yellow no.6 (sunset yellow (Unverified Allergy, Severe, 04/12/17) Iodinated Contrast- Oral and IV Dye (Verified Allergy, Severe, Anaphylaxis , 04/12/17) codeine (Unverified Allergy, Severe, Nausea/Vomiting, 04/12/17) red dye (Unverified Allergy, Severe, 04/12/17) diazepam (Unverified Allergy, Intermediate, 04/12/17) adhesive (Unverified Allergy, Mild, SORES, 04/12/17) levofloxacin (Unverified Allergy, Mild, ITCHING, 04/12/17) buspirone (Unverified Adverse Reaction, Intermediate, 04/12/17) Uncoded Allergies: IV THALIUM TEST ? (Allergy, Mild, 03/21/06) Past Medical History Hypertension CAD status post cardiac stents 2 TIA 2 Sinus tachycardia per patient Gout Cerebral aneurysm Diverticulosis and previous episodes of diverticulitis Past Surgical History Colonic fissure repair Cholecystectomy Cerebral aneurysm status post surgery 5 years ago. Stated she followed up with Dr. Thompson up until about 4 years ago and was told that she does not need to follow up anymore and that she has symptoms. Bladder suspension x 2 Active Ordered Medications Tylenol Xanax Ecotrin Dulcolax Cardizem Heparin MOM Morphine Zofran Percocet Protonix Zosyn Miranda-Colace Senokot Vancomycin Family History Unremarkable Social History Lives alone Denies smoking No ETOH abuse No illicit drugs Physical Exam Vital Signs Vital Signs Date Time Temp Pulse Resp B/P (MAP) Pulse Ox O2 Delivery O2 Flow Rate FiO2 04/15/17 12:00 73 04/15/17 12:00 97.8 79 17 126/64 (84) 96 04/15/17 11:30 96 Nasal Cannula 2.00 04/15/17 11:00 97.8 125 18 130/67 (88) 96 04/15/17 09:50 98 04/15/17 09:40 96.4 115 28 124/70 (88) 96 04/15/17 03:50 96.6 82 18 142/71 (94) 96 04/15/17 00:12 96.4 88 18 134/82 (99) 95 04/14/17 21:25 18 04/14/17 20:00 97.6 103 20 145/74 (97) 94 04/14/17 20:00 99 04/14/17 16:00 97.6 97 20 127/72 (90) 95 Physical Exam GENERAL: Patient is a well-nourished, well-developed female, awake and alert , not in respiratory distress. SKIN: Warm and dry. No generalized rash, no ecchymoses and no evidence of embolic lesions. HEAD: Atraumatic. Normocephalic. No temporal wasting, or tenderness. EYES: [place] conjunctiva. No petechia or hemorrhage. Pupils equal, round and reactive to light. Extraocular movements full and intact. No scleral icterus. No injection or drainage. EARS, NOSE AND THROAT: Nose without bleeding or purulent nasal discharge. No sinus tenderness. Mucous membranes pink and moist. No oral lesions noted. No exudate. No oral thrush. NECK: Trachea midline. Supple and not tender, no meningeal signs CARDIOVASCULAR: Regular rate and rhythm. No murmurs, rubs or gallops heard RESPIRATORY: Clear to auscultation. Breath sounds equal bilaterally. No rales , wheezing or rhonchi ABDOMEN: Soft, nondistended, with tenderness LLQ. No guarding, no rebound. Bowel sounds present and normoactive. No organomegaly. EXTREMITIES: No clubbing, cyanosis, or edema.No joint effusion, has good ROM. No calf tenderness. NEUROLOGICAL: Awake and alert. Cranial nerves grossly intact. Motor grossly within normal limits. PSYCHIATRIC: Normal affect, calm and cooperative. LINE: No evidence of infection Laboratory Laboratory Tests Test 04/14/17 16:11 04/14/17 21:42 04/15/17 04:03 04/15/17 10:29 White Blood Count 7.8 8.7 9.4 Red Blood Count 4.14 4.07 4.03 Hemoglobin 12.8 12.7 12.6 Hematocrit 40.1 39.5 39.2 Mean Corpuscular Volume 96.9 97.0 97.2 Mean Corpuscular Hemoglobin 30.8 31.1 31.3 Mean Corpuscular Hemoglobin Concent 31.8 32.1 32.2 Red Cell Distribution Width 16.5 16.3 16.4 Platelet Count 209 190 156 Mean Platelet Volume 8.0 7.6 7.3 Neutrophils (%) (Auto) 93.9 94.0 93.7 Lymphocytes (%) (Auto) 3.7 3.4 3.3 Monocytes (%) (Auto) 2.2 2.5 2.8 Eosinophils (%) (Auto) 0.1 0.0 0.1 Basophils (%) (Auto) 0.1 0.1 0.1 Neutrophils # (Auto) 7.3 8.2 8.8 Lymphocytes # (Auto) 0.3 0.3 0.3 Monocytes # (Auto) 0.2 0.2 0.3 Eosinophils # (Auto) 0.0 0.0 0.0 Basophils # (Auto) 0.0 0.0 0.0 CBC Comment DIFF FINAL AUTO DIFF AUTO DIFF Differential Comment FINAL DIFF MANUAL FINAL DIFF MANUAL Blood Urea Nitrogen 45 43 41 Creatinine 2.71 2.43 2.09 Random Glucose 151 145 148 Total Protein 5.9 5.8 5.8 Albumin 1.9 1.9 1.7 Calcium Level 8.4 8.2 7.9 Alkaline Phosphatase 43 45 46 Aspartate Amino Transf (AST/SGOT) 65 57 54 Alanine Aminotransferase (ALT/SGPT) 34 33 33 Total Bilirubin 0.3 0.3 0.3 Sodium Level 140 143 143 Potassium Level 3.8 3.6 3.9 Chloride Level 112 112 117 Carbon Dioxide Level 20.0 18.6 16.9 Anion Gap 8 12 9 Estimat Glomerular Filtration Rate 17 19 23 Total Creatine Kinase 822 825 428 Creatine Kinase MB 28.9 25.8 20.5 Creatine Kinase MB % 3.5 3.1 4.8 Differential Total Cells Counted 100 100 Neutrophils % (Manual) 86 63 Band Neutrophils % 11 24 Lymphocytes % 1 9 Neutrophils # (Manual) 8.6 8.4 Metamyelocytes 2 1 Monocytes % 2 Promyelocytes 1 Platelet Estimate NORMAL Platelet Morphology Comment NORMAL Red Cell Morphology Comment NORMAL Phosphorus Level 3.4 Magnesium Level 1.8 Free Thyroxine 0.98 Thyroid Stimulating Hormone 3rd Gen 0.455 Blood Gas Puncture Site RT RADIAL Blood Gas Patient Temperature 98.6 Blood Gas HCO3 17 Blood Gas Base Excess -9.3 Blood Gas Oxygen Saturation 95 Arterial Blood pH 7.26 Arterial Blood Partial Pressure CO2 39 Arterial Blood Partial Pressure O2 90 Arterial Blood Oxygen Content 23.6 Arterial Blood Carboxyhemoglobin 1.1 Arterial Blood Methemoglobin 0.5 Blood Gas Hemoglobin 17.7 Oxygen Delivery Device NASAL CANNULA Blood Gas Liter Flow 2 Test 04/15/17 10:40 Lactic Acid Level 1.3 Total Creatine Kinase 251 Creatine Kinase MB 13.7 Creatine Kinase MB % 5.5 Troponin I LESS THAN 0.02 Result Diagram: 04/15/17 0403 04/15/17 0403 Imaging RADIOLOGY STUDIES/FILMS REVIEWED Consultation 04/14/17 1534 Signed Impressions: Service Date/Time: Friday, April 14, 2017 15:34 - CONCLUSION: 1. Drainage performed secondary to an inadequate volume Gabriel Taylor MD Abdomen/Pelvis CT 04/12/17 0000 Signed Impressions: Service Date/Time: Wednesday, April 12, 2017 12:43 - CONCLUSION: 1. Descending colonic diverticulitis with abscess formation and a few scattered foci of free air and fluid characteristic of perforation. 2. Severe sigmoid diverticulosis. 3. Atherosclerosis. Nakul Rosas MD Assessment and Plan Assessment and Plan IMPRESSION Diverticulitis with microperforation and abscess formation - has had multiple episodes of diverticulitis treated as outpatient Atrial fib with RVR, back in NSR Leukocytosis, resolved RECOMMENDATION Continue Zosyn Get 2 BC today Also on IV Vancomycin Monitor response to Rx Monitor progress I will follow along with you Thank you for this consultation Discussed Condition With D/W Emma Becerra MD Apr 15, 2017 14:32
[2017-04-15 16:40] LABS: HEMOGLOBIN A1b 2.5 %; HEMOGLOBIN LA1C 2.2 %; HEMOGLOBIN P3 4.4 %
--- NOTE | 2017-04-15 17:51 | MB ---
cc: PAPA ALEXANDREEric BARON ADMISSION DATE 04/12/17 DATE OF CONSULTATION 04/15/17 IMPRESSION 1. Paroxysmal atrial fibrillation currently converted back to sinus rhythm on a Cardizem drip. 2. Acute diverticulitis with abscess formation. 3. Hypertension. 4. Atherosclerotic heart disease, a history of PCI in the remote past. No history of previous congestive heart failure or A. Fib 5. Hypertension. 6. Dyslipidemia. 7. Gout 8. History of TIA. 9. History of brain aneurysm. 10. Esophageal reflux disease. 11. Chronic renal failure stage III/stage IV RECOMMENDATIONS 1. Resume previous medications when the patient is taking oral medications/food 2. Renal consult. 3. Discontinue Dyazide. 4. May discontinue telmisartan 5. Resume atenolol 25 mg b.i.d. as patient's hemodynamics permit. At this point in time, there is no evidence of acute coronary syndrome. CLINICAL DATA The patient is a 77-year-old female admitted on April 12 with left lower quadrant pain. CT scan demonstrated diverticulitis with abscess formation. She has been treated with antibiotics. Today she apparently went into A. Fib. She became somewhat pale and diaphoretic, did not feel well. She was also hypertensive during her tachyarrhythmia. She was started on a Cardizem drip, transferred to the intensive care unit and has converted to sinus rhythm. She is feeling better at this point in time. She has a history of atherosclerotic heart disease undergoing multivessel PCI to the circumflex and left anterior descending artery in 2004. Her risk factors include dyslipidemia and hypertension. She also has hyperuricemia and gout. She has no known diabetes. SOCIAL HISTORY She does not smoke, use alcohol, etc. ALLERGIES CODEINE DIAZEPAM LEVAQUIN BUSPIRONE IV CONTRAST VARIOUS FOOD DYES AND TAPE MEDICATIONS At the time of admission 1. Percocet. 2. Metronidazole tablets which she was taking in January and these have been stopped. 3. Allopurinol 150 daily. 4. Colchicine p.r.n. 5. Alprazolam 0.5 bedtime p.r.n. 6. Aspirin 81 daily 7. uvastatin 5 mg three times weekly 8. Dyazide 37.5/25 daily 9. Guanfacine p.r.n. 10. Atenolol 50 daily. 11. Telmisartan 40 daily. 12. Vitamins. 13. Extra strength Tylenol p.r.n. PAST SURGICAL HISTORY 1. Cardiac catheterization and PCI. 2. Laparoscopic cholecystectomy, 3. Anal fissure surgery 4. Bladder suspension surgery apparently x2 5. History of TIA. No history of stroke or seizure. 6. Questionable history of intracranial aneurysm of which I was not aware 7. She has no history of asthma, bronchitis, emphysema, pneumonia, no history of overt GI bleeding or peptic ulcer disease. There is no history of liver disease. 8. History of chronic renal failure. 9. She has no history of thyroid disease or DVT/pulmonary thromboembolic disease. Her last stress test was performed in 2014 and was normal. Her ejection fraction post stress was in the 80% range with normal perfusion. She has had no chest pain. She has had no unusual shortness of breath. She is not ambulatory currently. She apparently has not had a fever and her white cell count has gone down with antibiotics. She is having no dizzy spells. No lower extremity edema. She is having no back pain at this point in time. No headaches or visual changes. PHYSICAL EXAMINATION GENERAL: An alert ill-appearing female who says she is tired and does not feel well. She is still having mild left lower quadrant pain, apparently much improved from admission. VITAL SIGN: Heart rate is 70 and regular sinus rhythm with occasional PVCs. Her last blood pressure recorded was 130/67. In the ICU, her blood pressure appears to be in the 120/60 range. HEENT: Anicteric sclerae. Jugular venous pressures are normal. No bruits. LUNGS: She has clear lung goldstein anterior laterally. CARDIAC: Regular rate and rhythm. No clicks, rubs or gallops noted. There is a 1/6 systolic ejection murmur. ABDOMEN: Soft but she does have tenderness in the left lower quadrant. EXTREMITIES: Free of cyanosis, clubbing, edema. CARDIOLOGY STUDIES A 12-lead EKG demonstrated A. Fib with a rapid ventricular response and there were no ST-T changes. LABORATORY DATA Most recent white count 9400, hematocrit 39%, platelet count 156,000. Most recent chemistries - Lytes 143, 3.9, 117, 16.9, GFR of 23 up from 17. On admission her most recent creatinine was 2.1. Transaminases are less than twice normal elevated. Alk phos is normal. Troponin was less than 0.2 today after her episode. CPK was elevated at 251 with an MB of 5.5. IMAGING STUDIES No recent chest x-ray available. DISCUSSION A 77-year-old female admitted to the hospital with diverticulitis who developed A. Fib with hypertension, slight increase in cardiac enzymes, no EKG changes were noted. She has converted to sinus rhythm and is feeling much better. Of concern is she has a low bicarb, may have lactic acidosis and ongoing infection. Apparently, she was seen by interventional radiology in order to attempt percutaneous abscess drainage and there was not enough fluid for them to safely perform this. At this point in time, the patient appears to be hemodynamically stable. We will continue intravenous diltiazem, even though this may lead to constipation/obstipation. We will restart her home medications as soon as possible. An echocardiogram and serial cardiac enzymes have already been ordered. DO KRUPA Saenz/ /4:29 PM /5:20 PM
[2017-04-15] MEDS: SODIUM CHLOR 0.9% 1000 ML INJ 1,000 ML IV SCH ×2 (18:50→18:51)
[2017-04-15] MEDS: SODIUM CHLORIDE 0.9% FLUSH 10 ML FLUSH IV FLUSH SCH (18:50)
[2017-04-15] MEDS: PANTOPRAZOLE SODIUM 40 MG VIAL IV PUSH SCH (18:50)
[2017-04-15] MEDS: DOCUSATE SODIUM 50 MG/SENNA 8.6 MG TAB PO SCH (21:00)
[2017-04-15 21:45] LABS: CREATINE KINASE 183 U/L (26-192)
[2017-04-16] VITALS (29 sets, daily range): BP systolic 143–160; BP diastolic 75–87; PULSE 70–89; RESP 20–24; TEMP 97.3–98; O2SAT 93–98
[2017-04-16 00:13] LABS: CKMB 7.6 NG/ML (0.5-3.6)
[2017-04-16] MEDS: SODIUM CHLORIDE 0.9% FLUSH 10 ML FLUSH IV FLUSH SCH ×3 (03:52→20:13)
[2017-04-16] MEDS: HEPARIN SODIUM - SQ 10,000 UNITS/ML VIAL SQ SCH ×3 (03:53→13:58)
[2017-04-16] MEDS: SODIUM CHLOR 0.9% 1000 ML INJ 1,000 ML IV SCH ×4 (03:54→20:20)
[2017-04-16] MEDS: PIPERACIL-TAZO 3.375 GM PREMIX 50 ML IV SCH ×4 (06:49→18:23)
[2017-04-16 07:38] LABS: AUTOMATED NEUTROPHIL # 10.1 TH/MM3 (1.8-7.7); BASOPHIL % 0.1 % (0.0-2.0); EOSINOPHIL % 0.3 % (0.0-4.0); HEMATOCRIT 35.2 % (35.0-46.0); LYMPH % 3.7 % (9.0-44.0); LYMPHOCYTE # 0.4 TH/MM3 (1.0-4.8); MEAN CELL VOLUME 96.2 FL (80.0-100.0); MEAN CORPUSCULAR HEMOGLOBIN 31.5 PG (27.0-34.0); MEAN CORPUSCULAR HGB CONC 32.8 % (32.0-36.0); MONO % 4.9 % (0.0-8.0); PLATELET COUNT 166 TH/MM3 (150-450); RED BLOOD COUNT 3.66 MIL/MM3 (4.00-5.30); RED CELL DISTRIBUTION WIDTH 16.3 % (11.6-17.2); WHITE BLOOD COUNT 11.1 TH/MM3 (4.0-11.0)
[2017-04-16 07:43] LABS: HEMO FLAGS AUTO DIFF
[2017-04-16] MEDS: ACETAMINOPHEN/HYDROcodone 325 MG/5 MG TAB PO PRN ×3 (07:59→20:12)
[2017-04-16 08:00] LABS: ALT (GPT) 33 U/L (10-53); ANION GAP 10 MEQ/L (5-15); AST (GOT) 41 U/L (15-37); BICARBONATE 19.3 MEQ/L (21.0-32.0); BLOOD UREA NITROGEN 38 MG/DL (7-18); CHLORIDE 113 MEQ/L (98-107); GLOMERULAR FILTRATION RATE 33 ML/MIN (>89); MAGNESIUM 1.9 MG/DL (1.5-2.5); POTASSIUM 3.7 MEQ/L (3.5-5.1); SODIUM (NA) 142 MEQ/L (136-145)
[2017-04-16] MEDS: DOCUSATE SODIUM 50 MG/SENNA 8.6 MG TAB PO SCH ×2 (08:00→20:12)
[2017-04-16] MEDS: ASPIRIN EC 81 MG TABEC PO SCH (08:00)
[2017-04-16] MEDS: PANTOPRAZOLE SODIUM 40 MG VIAL IV PUSH SCH (08:03)
[2017-04-16 08:04] LABS: ALKALINE PHOSPHATASE 71 U/L (45-117); CREATINE KINASE 84 U/L (26-192); TOTAL BILIRUBIN ADULT 0.4 MG/DL (0.2-1.0)
--- NOTE | 2017-04-16 09:06 | HHI.PR ---
Subjective Remarks Patient was admitted to colorectal surgery service on April 12, 2017. Patient reported that on that particular day, she was having severe left lower quadrant abdominal pain which came on suddenly. Denies any associated nausea/vomiting/diarrhea. She reports that the pain was so severe and this was the main reason why she came to hospital. Denies any fever. Denies any vomiting/diarrhea. Patient denies any associated chest pain/palpitations/dizziness/syncopal episodes. Denies having any blood in her stool or in her urine. Denies coughing out blood. Denies fever. Patient and nursing staff reported the patient was receiving pain medications Dilaudid 0.3 mg almost every 2 hours for her abdominal pain while in hospital. She initially has elevated blood pressures around systolic of 140 to 170s. However by the evening shift, her blood pressure was dropping to as low as 60s over 40s. She was given normal saline bolus of 250 cc after which blood pressure case picker to 103 systolic. She was also having associated tachycardia. Patient does report of history of hypertension for which she takes antihypertensives at home. She has not received any of these medications while in hospital to explain her hypotension. She reports of history of tachycardia. She is not on any blood thinners at home. 9-7 called to see patient patient noted to be in A. fib with RVR will give Cardizem IV and placed on Cardizem drip and transferred to the ICU Consult cardiology. Will get a cardiac echo. We will trend troponins and cardiac enzymes We'll get an ABG Discussed with Dr. 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 CONTROLLED STILL ON CARDIZEM DRIP SEEN BY CARDIOLOGY AND INFECTIOUS DISEASE COMPLAINS OF PAIN ALL OVER TOLERATING DIET SO FAR AM LABS DW CARDIO AND RN AND PATIENT Objective Vitals Vital Signs Date Time Temp Pulse Resp B/P (MAP) Pulse Ox O2 Delivery O2 Flow Rate FiO2 04/16/17 07:30 97.4 82 20 156/87 (110) 97 04/16/17 07:30 97 Nasal Cannula 2.00 04/16/17 06:00 79 04/16/17 05:00 72 04/16/17 04:27 82 24 153/85 (107) 98 04/16/17 04:00 76 04/16/17 03:00 75 04/16/17 02:00 72 04/16/17 01:00 82 04/16/17 00:00 70 04/15/17 23:00 80 04/15/17 23:00 98.0 71 20 157/82 (107) 98 04/15/17 22:00 74 04/15/17 21:00 70 04/15/17 20:00 97 Nasal Cannula 2.00 04/15/17 20:00 68 04/15/17 20:00 98.1 72 24 147/76 (99) 04/15/17 19:00 74 04/15/17 18:15 97.5 69 14 139/79 (99) 96 04/15/17 16:28 15 04/15/17 16:00 71 04/15/17 16:00 98.0 78 21 142/84 (103) 94 04/15/17 14:00 68 04/15/17 12:00 73 04/15/17 12:00 97.8 79 17 126/64 (84) 96 04/15/17 11:30 96 Nasal Cannula 2.00 04/15/17 11:00 97.8 125 18 130/67 (88) 96 04/15/17 09:50 98 04/15/17 09:40 96.4 115 28 124/70 (88) 96 I/O 04/15/17 04/15/17 04/15/17 04/16/17 04/16/17 04/16/17 06:59 14:59 22:59 06:59 14:59 22:59 Intake Total 0 ml 50 ml 480 ml Output Total 700 ml Balance 0 ml 50 ml -220 ml Intake Oral 0 ml 480 ml IV Total 50 ml 0 ml Output Urine Total 700 ml Stool Total 0 ml # Voids 2 # Bowel Movements 0 Result Diagram: 04/16/17 0650 04/16/17 0650 Other Results Laboratory Tests Test 04/14/17 04:13 04/14/17 16:11 04/14/17 21:42 04/15/17 04:03 White Blood Count 9.0 TH/MM3 7.8 TH/MM3 8.7 TH/MM3 9.4 TH/MM3 Red Blood Count 4.35 MIL/MM3 4.14 MIL/MM3 4.07 MIL/MM3 4.03 MIL/MM3 Hemoglobin 13.8 GM/DL 12.8 GM/DL 12.7 GM/DL 12.6 GM/DL Hematocrit 41.9 % 40.1 % 39.5 % 39.2 % Mean Corpuscular Volume 96.3 FL 96.9 FL 97.0 FL 97.2 FL Mean Corpuscular Hemoglobin 31.6 PG 30.8 PG 31.1 PG 31.3 PG Mean Corpuscular Hemoglobin Concent 32.8 % 31.8 % 32.1 % 32.2 % Red Cell Distribution Width 15.9 % 16.5 % 16.3 % 16.4 % Platelet Count 209 TH/MM3 209 TH/MM3 190 TH/MM3 156 TH/MM3 Mean Platelet Volume 7.9 FL 8.0 FL 7.6 FL 7.3 FL Neutrophils (%) (Auto) 87.8 % 93.9 % 94.0 % 93.7 % Lymphocytes (%) (Auto) 7.1 % 3.7 % 3.4 % 3.3 % Monocytes (%) (Auto) 5.0 % 2.2 % 2.5 % 2.8 % Eosinophils (%) (Auto) 0.0 % 0.1 % 0.0 % 0.1 % Basophils (%) (Auto) 0.1 % 0.1 % 0.1 % 0.1 % Neutrophils # (Auto) 7.9 TH/MM3 7.3 TH/MM3 8.2 TH/MM3 8.8 TH/MM3 Lymphocytes # (Auto) 0.6 TH/MM3 0.3 TH/MM3 0.3 TH/MM3 0.3 TH/MM3 Monocytes # (Auto) 0.4 TH/MM3 0.2 TH/MM3 0.2 TH/MM3 0.3 TH/MM3 Eosinophils # (Auto) 0.0 TH/MM3 0.0 TH/MM3 0.0 TH/MM3 0.0 TH/MM3 Basophils # (Auto) 0.0 TH/MM3 0.0 TH/MM3 0.0 TH/MM3 0.0 TH/MM3 CBC Comment AUTO DIFF DIFF FINAL AUTO DIFF AUTO DIFF Differential Total Cells Counted 100 100 100 Neutrophils % (Manual) 31 % 86 % 63 % Band Neutrophils % 36 % 11 % 24 % Lymphocytes % 13 % 1 % 9 % Monocytes % 5 % 2 % Neutrophils # (Manual) 7.4 TH/MM3 8.6 TH/MM3 8.4 TH/MM3 Metamyelocytes 13 % 2 % 1 % Myelocytes 2 % Differential Comment FINAL DIFF MANUAL FINAL DIFF MANUAL FINAL DIFF MANUAL Toxic Vacuolation PRESENT Dohle Bodies PRESENT Platelet Estimate NORMAL NORMAL Platelet Morphology Comment NORMAL NORMAL Red Cell Morphology Comment NORMAL NORMAL Blood Urea Nitrogen 39 MG/DL 45 MG/DL 43 MG/DL 41 MG/DL Creatinine 2.88 MG/DL 2.71 MG/DL 2.43 MG/DL 2.09 MG/DL Random Glucose 161 MG/DL 151 MG/DL 145 MG/DL 148 MG/DL Calcium Level 8.3 MG/DL 8.4 MG/DL 8.2 MG/DL 7.9 MG/DL Sodium Level 140 MEQ/L 140 MEQ/L 143 MEQ/L 143 MEQ/L Potassium Level 4.7 MEQ/L 3.8 MEQ/L 3.6 MEQ/L 3.9 MEQ/L Chloride Level 111 MEQ/L 112 MEQ/L 112 MEQ/L 117 MEQ/L Carbon Dioxide Level 19.0 MEQ/L 20.0 MEQ/L 18.6 MEQ/L 16.9 MEQ/L Anion Gap 10 MEQ/L 8 MEQ/L 12 MEQ/L 9 MEQ/L Estimat Glomerular Filtration Rate 16 ML/MIN 17 ML/MIN 19 ML/MIN 23 ML/MIN Total Creatine Kinase 1649 U/L 822 U/L 825 U/L 428 U/L Creatine Kinase MB 48.7 NG/ML 28.9 NG/ML 25.8 NG/ML 20.5 NG/ML Creatine Kinase MB % 3.0 % 3.5 % 3.1 % 4.8 % Troponin I LESS THAN 0.02 NG/ML Total Protein 5.9 GM/DL 5.8 GM/DL 5.8 GM/DL Albumin 1.9 GM/DL 1.9 GM/DL 1.7 GM/DL Alkaline Phosphatase 43 U/L 45 U/L 46 U/L Aspartate Amino Transf (AST/SGOT) 65 U/L 57 U/L 54 U/L Alanine Aminotransferase (ALT/SGPT) 34 U/L 33 U/L 33 U/L Total Bilirubin 0.3 MG/DL 0.3 MG/DL 0.3 MG/DL Promyelocytes 1 % Phosphorus Level 3.4 MG/DL Magnesium Level 1.8 MG/DL Hemoglobin A1c 6.5 % Free Thyroxine 0.98 NG/DL Thyroid Stimulating Hormone 3rd Gen 0.455 uIU/ML Test 04/15/17 10:29 9/7/17 10:40 04/15/17 22:59 04/16/17 06:50 Blood Gas Puncture Site RT RADIAL Blood Gas Patient Temperature 98.6 Blood Gas HCO3 17 mmol/L Blood Gas Base Excess -9.3 mmol/L Blood Gas Oxygen Saturation 95 % Arterial Blood pH 7.26 Arterial Blood Partial Pressure CO2 39 mmHg Arterial Blood Partial Pressure O2 90 mmHg Arterial Blood Oxygen Content 23.6 Vol % Arterial Blood Carboxyhemoglobin 1.1 % Arterial Blood Methemoglobin 0.5 % Blood Gas Hemoglobin 17.7 G/DL Oxygen Delivery Device NASAL CANNULA Blood Gas Liter Flow 2 L/M Lactic Acid Level 1.3 mmol/L Total Creatine Kinase 251 U/L 183 U/L 84 U/L Creatine Kinase MB 13.7 NG/ML 7.6 NG/ML Creatine Kinase MB % 5.5 % Troponin I LESS THAN 0.02 NG/ML LESS THAN 0.02 NG/ML LESS THAN 0.02 NG/ML White Blood Count 11.1 TH/MM3 Red Blood Count 3.66 MIL/MM3 Hemoglobin 11.5 GM/DL Hematocrit 35.2 % Mean Corpuscular Volume 96.2 FL Mean Corpuscular Hemoglobin 31.5 PG Mean Corpuscular Hemoglobin Concent 32.8 % Red Cell Distribution Width 16.3 % Platelet Count 166 TH/MM3 Mean Platelet Volume 8.2 FL Neutrophils (%) (Auto) 91.0 % Lymphocytes (%) (Auto) 3.7 % Monocytes (%) (Auto) 4.9 % Eosinophils (%) (Auto) 0.3 % Basophils (%) (Auto) 0.1 % Neutrophils # (Auto) 10.1 TH/MM3 Lymphocytes # (Auto) 0.4 TH/MM3 Monocytes # (Auto) 0.5 TH/MM3 Eosinophils # (Auto) 0.0 TH/MM3 Basophils # (Auto) 0.0 TH/MM3 CBC Comment AUTO DIFF Blood Urea Nitrogen 38 MG/DL Creatinine 1.54 MG/DL Random Glucose 88 MG/DL Total Protein 5.9 GM/DL Albumin 1.6 GM/DL Calcium Level 8.3 MG/DL Phosphorus Level 2.6 MG/DL Magnesium Level 1.9 MG/DL Alkaline Phosphatase 71 U/L Aspartate Amino Transf (AST/SGOT) 41 U/L Alanine Aminotransferase (ALT/SGPT) 33 U/L Total Bilirubin 0.4 MG/DL Sodium Level 142 MEQ/L Potassium Level 3.7 MEQ/L Chloride Level 113 MEQ/L Carbon Dioxide Level 19.3 MEQ/L Anion Gap 10 MEQ/L Estimat Glomerular Filtration Rate 33 ML/MIN Random Vancomycin Level 14.0 COMMENT Imaging Last Impressions Consultation 04/14/17 1534 Signed Impressions: Service Date/Time: Friday, April 14, 2017 15:34 - CONCLUSION: 1. Drainage performed secondary to an inadequate volume Gabriel Taylor MD Abdomen/Pelvis CT 04/12/17 0000 Signed Impressions: Service Date/Time: Wednesday, April 12, 2017 12:43 - CONCLUSION: 1. Descending colonic diverticulitis with abscess formation and a few scattered foci of free air and fluid characteristic of perforation. 2. Severe sigmoid diverticulosis. 3. Atherosclerosis. Nakul Rosas MD Objective Remarks GENERAL: Awake and alert but in atrial fibrillation NOW CONTROLLED appears to be in MILD distress- LESS lethargic at this time SKIN: Warm and dry. HEAD: Atraumatic. Normocephalic. EYES: Pupils equal and round. No scleral icterus. No injection or drainage. Extraocular muscles intact ENT: No nasal bleeding or discharge. Mucous membranes pink and moist. Oral mucosa is moist tongue is midline NECK: Trachea midline. No JVD. Supple CARDIOVASCULAR: IRRegular rate and rhythm. In A. fib S1-S2 no S3 or S4 no heave or thrill or rub RESPIRATORY: No accessory muscle use. Clear to auscultation. Breath sounds equal bilaterally. GASTROINTESTINAL: Abdomen soft but tender left quadrant nondistended. Hepatic and splenic margins not palpable. Some mild rebound MUSCULOSKELETAL: Extremities without clubbing, cyanosis, or edema. No obvious deformities. NEUROLOGICAL: Awake and alert. No obvious cranial nerve deficits. Motor grossly within normal limits. Five out of 5 muscle strength in the arms and legs. Normal speech. PSYCHIATRIC: Appropriate mood and affect; insight and judgment normal. Procedures NONE Medications and IVs Current Medications Morphine Sulfate (Morphine Inj) 4 mg ONCE ONCE IV PUSH Last administered on 12:00; Start 04/12/17 at 11:45; Stop 04/12/17 at 11:46; Status DC Ondansetron HCl (Zofran Inj) 4 mg ONCE ONCE IVP Last administered on 04/12/17 11:59; Start 04/12/17 at 11:45; Stop 04/12/17 at 11:46; Status DC Sodium Chloride (NS Flush) 2 ml UNSCH PRN IV FLUSH FLUSH AFTER USING IV ACCESS Last administered on 04/12/17 12:00; Start 04/12/17 at 11:45; Stop 04/15/17 at 11: 20; Status DC Hydromorphone HCl (Dilaudid Pf Inj) 0.5 mg ONCE ONCE IVS Last administered on 04/12/17 13:18; Start 04/12/17 at 13:15; Stop 04/12/17 at 13:16; Status DC Metronidazole 100 ml @ 100 mls/hr ONCE ONCE IV Last administered on 04/12/17 13:18; Start 04/12/17 at 13:15; Stop 04/13/17 at 09:11; Status DC Ceftazidime 2000 mg/Sodium Chloride 100 ml @ 200 mls/hr ONCE ONCE IV Last administered on 04/12/17 14:15; Start 04/12/17 at 13:15; Stop 04/12/17 at 13:44; Status DC Hydromorphone HCl (Dilaudid Pf Inj) 0.5 mg ONCE ONCE IV PUSH Last administered on 04/12/17 15:43; Start 04/12/17 at 15:45; Stop 04/12/17 at 15:46; Status DC Sodium Chloride 1,000 ml @ 2,000 mls/hr Q30M ONCE IV Last administered on 15:42; Start 04/12/17 at 15:45; Stop 04/12/17 at 16:14; Status DC Morphine Sulfate (Morphine Inj) 1 mg Q3H PRN IV PAIN 1-10 Last administered on 04/12/17 17:36; Start 04/12/17 at 17:45; Stop 04/12/17 at 19:28; Status DC Ondansetron HCl (Zofran Inj) 4 mg Q6H PRN IV PUSH NAUSEA Last administered on 05:33; Start 04/12/17 at 17:45 Dextrose/Sodium Chloride 1,000 ml @ 150 mls/hr Q6H40M IV Last administered on 04/15/17 08:37; Start 04/12/17 at 18:00; Stop 04/15/17 at 11:23; Status DC Ceftazidime 2000 mg/Sodium Chloride 100 ml @ 200 mls/hr Q8H IV Last administered on 04/13/17 19:52; Start 04/12/17 at 22:00; Stop 04/14/17 at 05:03; Status DC Hydromorphone HCl (Dilaudid Pf Inj) 0.3 mg Q3H PRN IV PAIN 1-10 Last administered on 04/13/17 11:35; Start 04/12/17 at 20:00; Stop 04/13/17 at 12:49; Status DC Alprazolam (Xanax) 0.5 mg Q8H PRN PO ANXIETY Last administered on 04/13/17 19: 52; Start 04/13/17 at 09:15; Stop 04/14/17 at 04:57; Status DC Aspirin (Ecotrin Ec) 81 mg BID PO ; Start 04/13/17 at 09:15; Stop 04/13/17 at 12: 48; Status DC Atenolol (Tenormin) 50 mg DAILY PO ; Start 04/13/17 at 09:15; Status Future Hold Guanfacine HCl (Tenex) 1 mg HS PO Last administered on 04/13/17 19:52; Start at 21:00; Stop 04/14/17 at 03:03; Status DC Triamterene/HCTZ (Maxzide 37.5-25 Mg) 1 tab EVERY OTHER DAY PO ; Start 04/15/17 at 09:00; Stop 04/15/17 at 09:00; Status DC Losartan Potassium (Cozaar) 50 mg DAILY PO ; Start 04/14/17 at 09:00; Status Future Hold Aspirin (Ecotrin Ec) 81 mg DAILY PO Last administered on 04/16/17 08:00; Start 04/14/17 at 09:00 Hydromorphone HCl (Dilaudid Pf Inj) 0.3 mg Q2H PRN IV PAIN 1-10 Last administered on 04/13/17 22:01; Start 04/13/17 at 13:00; Stop 04/14/17 at 06:21; Status DC Sodium Chloride 250 ml @ 250 mls/hr UNSCH X1 IV Last administered on 03:26; Start 04/14/17 at 03:30; Stop 04/14/17 at 04:30; Status DC Alprazolam (Xanax) 0.25 mg Q8H PRN PO ANXIETY Last administered on 04/14/17 17: 56; Start 04/14/17 at 09:15 Ketorolac Tromethamine (Toradol Inj) 15 mg Q6H PRN IV PUSH pain >5 Last administered on 04/14/17 05:33; Start 04/14/17 at 05:00; Stop 04/19/17 at 04:59; Status Future Hold Piperacillin Sod/ Tazobactam Sod 100 ml @ 200 mls/hr Q6H IV ; Start 04/14/17 at 06:00; Stop 04/14/17 at 06:00; Status DC Sodium Chloride 500 ml @ 500 mls/hr BOLUS ONCE IV Last administered on 05:33; Start 04/14/17 at 05:15; Stop 04/14/17 at 06:14; Status DC Piperacillin Sod/ Tazobactam Sod 50 ml @ 200 mls/hr Q6H IV Last administered on 04/16/17 06:49; Start 04/14/17 at 06:00 Heparin Sodium (Porcine) (Heparin Inj) 5,000 units Q8HR SQ Last administered on 04/16/17 06:48; Start 04/14/17 at 14:00 Pantoprazole Sodium (Protonix Inj) 40 mg Q24H IV PUSH Last administered on 08:03; Start 04/14/17 at 09:00 Acetaminophen/ Hydrocodone Bitart (Latty 5-325 Mg) 1 tab Q6H PRN PO pain 1-10 Last administered on 04/15/17 02:38; Start 04/14/17 at 08:30; Stop 04/15/17 at 11: 23; Status DC Atenolol (Tenormin) 50 mg STAT ONCE PO Last administered on 04/15/17 07:21; Start 04/15/17 at 07:30; Stop 04/15/17 at 07:31; Status DC Diltiazem HCl (Cardizem Inj) 20 mg ONCE ONCE IV PUSH Last administered on 10:44; Start 04/15/17 at 10:30; Stop 04/15/17 at 10:31; Status DC Diltiazem HCl 125 mg/Sodium Chloride 125 ml @ 5 mls/hr TITRATE PRN IV Tachycardia; Start 04/15/17 at 10:30 Sodium Chloride 1,000 ml @ 999 mls/hr BOLUS ONCE IV Last administered on 10:45; Start 04/15/17 at 10:45; Stop 04/15/17 at 11:45; Status DC Sodium Chloride 1,000 ml @ 150 mls/hr Q6H40M IV Last administered on 04/16/17 03:54; Start 04/15/17 at 11:00 Vancomycin HCl 1250 mg/Sodium Chloride 262.5 ml @ 262.5 mls/ hr ONCE ONCE IV ; Start 04/15/17 at 10:45; Stop 04/15/17 at 11:44; Status UNV Pharmacy Profile Note 0 ml @ 0 mls/hr UNSCH OTHER ; Start 04/15/17 at 10:45 Sodium Chloride (NS Flush) 2 ml UNSCH PRN IV FLUSH FLUSH AFTER USING IV ACCESS ; Start 04/15/17 at 10:45 Sodium Chloride (NS Flush) 2 ml BID IV FLUSH Last administered on 04/16/17 08: 00; Start 04/15/17 at 10:45 Acetaminophen (Tylenol) 650 mg Q6H PRN PO PAIN SCALE 1 TO 2; Start 04/15/17 at 10:45 Oxycodone/ Acetaminophen (Percocet 5-325 Mg) 1 tab Q6H PRN PO PAIN SCALE 3 TO 5; Start 04/15/17 at 10:45; Stop 04/15/17 at 19:28; Status DC Oxycodone/ Acetaminophen (Percocet 10-325 Mg) 1 tab Q6H PRN PO PAIN SCALE 6 TO 10; Start 04/15/17 at 10:45; Stop 04/15/17 at 19:28; Status DC Morphine Sulfate (Morphine Inj) 2 mg Q3H PRN IV Pain 3-5; if unable to take PO Last administered on 04/15/17 16:12; Start 04/15/17 at 10:45; Stop 04/15/17 at 19: 28; Status DC Morphine Sulfate (Morphine Inj) 4 mg Q3H PRN IV Pain 6-10;if unable to take PO ; Start 04/15/17 at 10:45; Stop 04/15/17 at 19:28; Status DC Naloxone HCl (Narcan Inj) 0.4 mg UNSCH PRN IV SEE LABEL COMMENTS; Start at 10:45 Senna/Docusate Sodium (Miranda-Colace) 1 tab BID PO Last administered on 04/16/17 08:00; Start 04/15/17 at 21:00 Magnesium Hydroxide (Milk Of Magnesia Liq) 30 ml Q12H PRN PO MILD - MODERATE CONSTIPATION; Start 04/15/17 at 10:45 Sennosides (Senokot) 17.2 mg Q12H PRN PO MODERATE - SEVERE CONSTIPATION; Start 04/15/17 at 10:45 Bisacodyl (Dulcolax Supp) 10 mg DAILY PRN RECTAL SEVERE CONSITIPATION; Start at 10:45 Lactulose (Lactulose Liq) 30 ml DAILY PRN PO SEVERE CONSITIPATION; Start at 10:45; Stop 04/15/17 at 11:51; Status DC Vancomycin HCl 1500 mg/Sodium Chloride 515 ml @ 250 mls/hr ONCE ONCE IV ; Start 04/15/17 at 14:00; Stop 04/15/17 at 16:03; Status DC Acetaminophen/ Hydrocodone Bitart (Latty 5-325 Mg) 1 tab Q6H PRN PO PAIN SCALE 5 TO 10 Last administered on 04/16/17 07:59; Start 04/15/17 at 19:30 Urinary Catheter: No Vascular Central Line Catheter: No A/P Assessment and Plan Impression: A. fib with RVR-atenolol has been restarted. We'll need to get an Cardizem IV push 20 mg. And Cardizem drip and transferred to the ICU will consult cardiology and get an echocardiogram and trend troponins--IN [facility]U NOW-- WEAN OFF CARDIZEM DRIP Hypotension with reflex tachycardia- suspect volume Depletion. Also compounded by pain medicine as well.-Appears that patient has a history of what sounds like atrial fibrillation Rhabdomyolysis trending down Acute renal failure- secondary to dehydration possible early septic shock- AGGRESSIVE FLUID REHYDRATION Ruptured diverticula as well as with early abscess formation. No drainable fluid per IR. Procedure was canceled Leukocytosis with left shift and bandemia on antibiotics ZOSYN AND VANCO History of Hypertension CAD status post cardiac stents 2 TIA 2 Sinus tachycardia per patient Atrial fibrillation with RVR continue on Cardizem drip consult cardiology trend troponins echocardiogram- WEAN OFF CARDIZEM DRIP HYPOTENSION- GIVE IV FLUIDS NS BOLUS 1 LITER--IMPROVED- RESOLVED RENAL INSUFFICIENCY Plan: Continue IV fluids Also continue maintenance IV fluids with normal saline at 1 50 cc per hour. We will recheck labs in a.m. Adjust medications We'll switch antibiotics to Zosyn. AND VANCO Hold narcotics. Will manage pain will discontinue Toradol Use narcotics for pain control If the blood pressure permits, we can slowly and small dose pain medications. Patient is quite truly in pain. Restart atenolol continue on Cardizem drip Bladder scan to make sure the patient's acute renal failure is not from dehydration. We'll follow CPK, and renal function. If needed, would start patient on bicarbonate drip. We will follow patient along with you. DVT prophylaxiswith heparin. GI prophylaxis on pantoprazole. See orders A.m. labs Transferred to ICU for close monitoring and Cardizem drip-- OUT OF ICU- STILL ON CARDIZEM DRIP DW CARDIO AND RN AND PT Discussed with Dr. Walls of colorectal surgery Gagan Johnson DO Apr 16, 2017 09:06
[2017-04-16 09:21] LABS: BANDS 20 % (0-6); CORRECTED NUCLEATED RBC 1 /100 WBC (0-0); NEUTROPHIL # MANUAL DIFF 10.4 TH/MM3 (1.8-7.7); PLATELET ESTIMATE SMEAR NORMAL (NORMAL); PLATELET MORPHOLOGY NORMAL (NORMAL); POLYS (SEG NEUTROPHILS) 74 % (16-70); SCAN/DIFF FINAL DIFF MANUAL; WBC DIFF SAMPLE 100
--- NOTE | 2017-04-16 09:42 | HHI.PR ---
Subjective Remarks Diverticulitis with microperforation and abscess much improved 'sore' Objective Vital Signs Date Time Temp Pulse Resp B/P (MAP) Pulse Ox O2 Delivery O2 Flow Rate FiO2 04/16/17 07:30 97.4 82 20 156/87 (110) 97 04/16/17 07:30 97 Nasal Cannula 2.00 04/16/17 06:00 79 04/16/17 05:00 72 04/16/17 04:27 82 24 153/85 (107) 98 04/16/17 04:00 76 04/16/17 03:00 75 04/16/17 02:00 72 04/16/17 01:00 82 04/16/17 00:00 70 04/15/17 23:00 80 04/15/17 23:00 98.0 71 20 157/82 (107) 98 04/15/17 22:00 74 04/15/17 21:00 70 04/15/17 20:00 97 Nasal Cannula 2.00 04/15/17 20:00 68 04/15/17 20:00 98.1 72 24 147/76 (99) 04/15/17 19:00 74 04/15/17 18:15 97.5 69 14 139/79 (99) 96 04/15/17 16:28 15 04/15/17 16:00 71 04/15/17 16:00 98.0 78 21 142/84 (103) 94 04/15/17 14:00 68 04/15/17 12:00 73 04/15/17 12:00 97.8 79 17 126/64 (84) 96 04/15/17 11:30 96 Nasal Cannula 2.00 04/15/17 11:00 97.8 125 18 130/67 (88) 96 04/15/17 09:50 98 04/15/17 09:40 96.4 115 28 124/70 (88) 96 I/O 04/15/17 04/15/17 04/15/17 04/16/17 04/16/17 04/16/17 06:59 14:59 22:59 06:59 14:59 22:59 Intake Total 0 ml 50 ml 480 ml Output Total 700 ml Balance 0 ml 50 ml -220 ml Intake Oral 0 ml 480 ml IV Total 50 ml 0 ml Output Urine Total 700 ml Stool Total 0 ml # Voids 2 # Bowel Movements 0 Result Diagram: 04/16/17 0650 04/16/17 0650 Objective Remarks Abdomen soft, nondistended, less tender LLQ Assessment and Plan Assessment and Plan Cardiac appears stable Diverticulitis appears to be resolving Agree with full liquids Will add gentle laxative Sarahi Walls MD Apr 16, 2017 09:42
[2017-04-16] MEDS ORDERED: POLYETHYLENE GLYCOL 17 GM PKG PO PRN (09:45)
[2017-04-16] MEDS: ATORVASTATIN 10 MG TAB PO SCH (10:07)
[2017-04-16] MEDS ORDERED: VANCOMYCIN 1,500 MG/NS 500 ML IV ONE ×2 (11:00)
--- NOTE | 2017-04-16 15:09 | ECHRPT ---
Indication: A-FIB CONCLUSIONS The left ventricular systolic function is normal with an estimated ejection fraction in the range of 55-60%. Normal left ventricular size. Wall thickness is measured at the upper limits of normal. No regional wall motion abnormalities are present. Trace mitral valve regurgitation. Calcification of the anterior mitral valve leaflet. Aortic valve sclerosis is present. Mild aortic valve regurgitation. There is trace tricuspid valve regurgitation. The estimated pulmonary arterial pressure is 42 mmHg. Trivial pulmonary valve regurgitation. BP: 124 / 70 HR: 88 Rhythm: Sinus MEASUREMENTS (Male / Female) Normal Values Technical Quality:Technically difficult study 2D ECHO LVOT Diameter 2.0 cm LV Ejection Fraction MOD 4C 56.9 % LV Cardiac Index MOD 4C 1809.1 cm/minm LV Ejection Fraction 4C AL 59.3 % LV Cardiac Index 4C AL 1944.1 cm/minm M-MODE LV Diastolic Diameter MM 5.2 cm 4.2 - 5.9 / 3.9 - 5.3 cm LV Systolic Diameter MM 3.7 cm LV Ejection Fraction MM Teich 54.9 % LV Cardiac Index MM Teich 3509.8 cm/minm IVS Diastolic Thickness MM 1.3 cm 0.6 - 1.0 / 0.6 - 0.9 cm LVPW Diastolic Thickness MM 1.3 cm 0.6 - 1.0 / 0.6 - 0.9 cm LV Relative Wall Thickness MM 0.5 0.24 - 0.42 / 0.22 - 0.42 LV Mass Index MM 149.2 g/m 49 - 115 / 43 - 95 g/m Aortic Root Diameter MM 3.4 cm AV Cusp Separation MM 1.2 cm DOPPLER AV Peak Velocity 137.0 cm/s AV Peak Gradient 7.5 mmHg AI Peak Velocity 342.0 cm/s AI Peak Gradient 46.8 mmHg AI Pressure Half Time 483.0 ms LVOT Peak Velocity 111.0 cm/s LVOT Peak Gradient 4.9 mmHg AV Area Cont Eq pk 2.5 cm MV Area PHT 5.4 cm Mitral E Point Velocity 98.7 cm/s Mitral A Point Velocity 91.3 cm/s Mitral E to A Ratio 1.1 LV E' Lateral Velocity 9.1 cm/s Mitral E to LV E' Lateral Ratio 10.9 LV E' Septal Velocity 7.7 cm/s Mitral E to LV E' Septal Ratio 12.8 TR Peak Velocity 284.0 cm/s TR Peak Gradient 32.3 mmHg PV Peak Velocity 89.6 cm/s PV Peak Gradient 3.2 mmHg FINDINGS LEFT VENTRICLE The left ventricular systolic function is normal with an estimated ejection fraction in the range of 55-60%. Normal left ventricular size. Wall thickness is measured at the upper limits of normal. No regional wall motion abnormalities are present. RIGHT VENTRICLE Normal right ventricular size and systolic function. LEFT ATRIUM The left atrial size is normal. RIGHT ATRIUM The right atrial size is normal. ATRIAL SEPTUM Normal atrial septal thickness without atrial level shunting by limited color doppler interrogation. AORTA The aortic root and proximal ascending aorta are normal in size on limited imaging. MITRAL VALVE Trace mitral valve regurgitation. Calcification of the anterior mitral valve leaflet. AORTIC VALVE Aortic valve sclerosis is present. Mild aortic valve regurgitation. TRICUSPID VALVE There is trace tricuspid valve regurgitation. The estimated pulmonary arterial pressure is 42 mmHg. PULMONARY VALVE Trivial pulmonary valve regurgitation. VESSELS The inferior vena cava is normal in size. PERICARDIUM No pericardial effusion. Bakari Smith MD (Electronically Signed) Final Date:16 April 2017 15:07
--- NOTE | 2017-04-16 16:04 | HHI.IDPN ---
Subjective Subjective Remarks Patient is a 77-year-old female presented to the hospital with an acute onset of left lower quadrant pain. Patient has had previous episodes of diverticulitis, and according to her she usually gets treated on an outpatient basis. This time however the pain was so severe, and so she presented to the hospital for further evaluation and treatment. She denies any nausea or vomiting. There's been no fever or chills. She's been having her regular bowel movements. CT of the abdomen and pelvis showed evidence of diverticulitis in the descending colon with abscess formation. Patient was started on broad-spectrum antibiotic. IR was consulted for possible percutaneous drainage of the abscess, but there was not enough fluid for drainage. Today patient went into rapid A. fib, and had some hypotension. She improved with fluid resuscitation, was started on Cardizem, and currently is in normal sinus rhythm. Her WBC has been normal. She has been afebrile. She still complains of pain in her left lower quadrant. She has not had any bowel movement since admission. Infectious disease consultation has been requested to evaluate the patient. Notes reviewed Temps ok In NSR Abdominal pain better No BM WBC slightly higher Creatinine better Antibiotics Zosyn Vanco Lines PIV Past Medical History Hypertension CAD status post cardiac stents 2 TIA 2 Sinus tachycardia per patient Gout Cerebral aneurysm Diverticulosis and previous episodes of diverticulitis Past Surgical History Colonic fissure repair Cholecystectomy Cerebral aneurysm status post surgery 5 years ago. Stated she followed up with Dr. Thompson up until about 4 years ago and was told that she does not need to follow up anymore and that she has symptoms. Bladder suspension x 2 Allergies: Coded Allergies: FD and C yellow no.10 (quinoline ye (Unverified Allergy, Severe, 04/12/17) FD and C yellow no.6 (sunset yellow (Unverified Allergy, Severe, 04/12/17) Iodinated Contrast- Oral and IV Dye (Verified Allergy, Severe, Anaphylaxis , 04/12/17) codeine (Unverified Allergy, Severe, Nausea/Vomiting, 04/12/17) red dye (Unverified Allergy, Severe, 04/12/17) diazepam (Unverified Allergy, Intermediate, 04/12/17) adhesive (Unverified Allergy, Mild, SORES, 04/12/17) levofloxacin (Unverified Allergy, Mild, ITCHING, 04/12/17) buspirone (Unverified Adverse Reaction, Intermediate, 04/12/17) Uncoded Allergies: IV THALIUM TEST ? (Allergy, Mild, 03/21/06) Objective . Vital Signs Date Time Temp Pulse Resp B/P (MAP) Pulse Ox O2 Delivery O2 Flow Rate FiO2 04/16/17 15:15 98.0 83 20 154/79 (104) 93 04/16/17 14:00 72 04/16/17 13:00 82 04/16/17 12:00 72 04/16/17 11:46 97.4 77 20 143/75 (97) 95 04/16/17 11:00 76 04/16/17 10:00 70 04/16/17 09:00 74 04/16/17 08:00 82 04/16/17 07:30 97.4 82 20 156/87 (110) 97 04/16/17 07:30 97 Nasal Cannula 2.00 04/16/17 07:00 80 04/16/17 06:00 79 04/16/17 05:00 72 04/16/17 04:27 82 24 153/85 (107) 98 04/16/17 04:00 76 04/16/17 03:00 75 04/16/17 02:00 72 04/16/17 01:00 82 04/16/17 00:00 70 04/15/17 23:00 80 04/15/17 23:00 98.0 71 20 157/82 (107) 98 04/15/17 22:00 74 04/15/17 21:00 70 04/15/17 20:00 97 Nasal Cannula 2.00 04/15/17 20:00 68 04/15/17 20:00 98.1 72 24 147/76 (99) 04/15/17 19:00 74 04/15/17 18:15 97.5 69 14 139/79 (99) 96 04/15/17 16:28 15 04/16/17 04/16/17 04/17/17 15:00 23:00 07:00 Intake Total 105 ml Balance 105 ml IV Total 105 ml . Laboratory Tests Test 04/14/17 16:11 04/14/17 21:42 04/15/17 04:03 04/16/17 06:50 White Blood Count 7.8 TH/MM3 8.7 TH/MM3 9.4 TH/MM3 11.1 TH/MM3 Red Blood Count 4.14 MIL/MM3 4.07 MIL/MM3 4.03 MIL/MM3 3.66 MIL/MM3 Hemoglobin 12.8 GM/DL 12.7 GM/DL 12.6 GM/DL 11.5 GM/DL Hematocrit 40.1 % 39.5 % 39.2 % 35.2 % Mean Corpuscular Volume 96.9 FL 97.0 FL 97.2 FL 96.2 FL Mean Corpuscular Hemoglobin 30.8 PG 31.1 PG 31.3 PG 31.5 PG Mean Corpuscular Hemoglobin Concent 31.8 % 32.1 % 32.2 % 32.8 % Red Cell Distribution Width 16.5 % 16.3 % 16.4 % 16.3 % Platelet Count 209 TH/MM3 190 TH/MM3 156 TH/MM3 166 TH/MM3 Mean Platelet Volume 8.0 FL 7.6 FL 7.3 FL 8.2 FL Neutrophils (%) (Auto) 93.9 % 94.0 % 93.7 % 91.0 % Lymphocytes (%) (Auto) 3.7 % 3.4 % 3.3 % 3.7 % Monocytes (%) (Auto) 2.2 % 2.5 % 2.8 % 4.9 % Eosinophils (%) (Auto) 0.1 % 0.0 % 0.1 % 0.3 % Basophils (%) (Auto) 0.1 % 0.1 % 0.1 % 0.1 % Neutrophils # (Auto) 7.3 TH/MM3 8.2 TH/MM3 8.8 TH/MM3 10.1 TH/MM3 Lymphocytes # (Auto) 0.3 TH/MM3 0.3 TH/MM3 0.3 TH/MM3 0.4 TH/MM3 Monocytes # (Auto) 0.2 TH/MM3 0.2 TH/MM3 0.3 TH/MM3 0.5 TH/MM3 Eosinophils # (Auto) 0.0 TH/MM3 0.0 TH/MM3 0.0 TH/MM3 0.0 TH/MM3 Basophils # (Auto) 0.0 TH/MM3 0.0 TH/MM3 0.0 TH/MM3 0.0 TH/MM3 CBC Comment DIFF FINAL AUTO DIFF AUTO DIFF AUTO DIFF Differential Comment FINAL DIFF MANUAL FINAL DIFF MANUAL FINAL DIFF MANUAL Differential Total Cells Counted 100 100 100 Neutrophils % (Manual) 86 % 63 % 74 % Band Neutrophils % 11 % 24 % 20 % Lymphocytes % 1 % 9 % 1 % Neutrophils # (Manual) 8.6 TH/MM3 8.4 TH/MM3 10.4 TH/MM3 Metamyelocytes 2 % 1 % Monocytes % 2 % 5 % Promyelocytes 1 % Platelet Estimate NORMAL NORMAL Platelet Morphology Comment NORMAL NORMAL Red Cell Morphology Comment NORMAL NORMAL Nucleated Red Blood Cells 1 /100 WBC Laboratory Tests Test 04/14/17 16:11 04/14/17 21:42 04/15/17 04:03 04/15/17 10:40 Blood Urea Nitrogen 45 MG/DL 43 MG/DL 41 MG/DL Creatinine 2.71 MG/DL 2.43 MG/DL 2.09 MG/DL Random Glucose 151 MG/DL 145 MG/DL 148 MG/DL Total Protein 5.9 GM/DL 5.8 GM/DL 5.8 GM/DL Albumin 1.9 GM/DL 1.9 GM/DL 1.7 GM/DL Calcium Level 8.4 MG/DL 8.2 MG/DL 7.9 MG/DL Alkaline Phosphatase 43 U/L 45 U/L 46 U/L Aspartate Amino Transf (AST/SGOT) 65 U/L 57 U/L 54 U/L Alanine Aminotransferase (ALT/SGPT) 34 U/L 33 U/L 33 U/L Total Bilirubin 0.3 MG/DL 0.3 MG/DL 0.3 MG/DL Sodium Level 140 MEQ/L 143 MEQ/L 143 MEQ/L Potassium Level 3.8 MEQ/L 3.6 MEQ/L 3.9 MEQ/L Chloride Level 112 MEQ/L 112 MEQ/L 117 MEQ/L Carbon Dioxide Level 20.0 MEQ/L 18.6 MEQ/L 16.9 MEQ/L Anion Gap 8 MEQ/L 12 MEQ/L 9 MEQ/L Estimat Glomerular Filtration Rate 17 ML/MIN 19 ML/MIN 23 ML/MIN Total Creatine Kinase 822 U/L 825 U/L 428 U/L 251 U/L Creatine Kinase MB 28.9 NG/ML 25.8 NG/ML 20.5 NG/ML 13.7 NG/ML Creatine Kinase MB % 3.5 % 3.1 % 4.8 % 5.5 % Phosphorus Level 3.4 MG/DL Magnesium Level 1.8 MG/DL Hemoglobin A1c 6.5 % Free Thyroxine 0.98 NG/DL Thyroid Stimulating Hormone 3rd Gen 0.455 uIU/ML Lactic Acid Level 1.3 mmol/L Troponin I LESS THAN 0.02 NG/ML Test 04/15/17 22:59 04/16/17 06:50 Total Creatine Kinase 183 U/L 84 U/L Creatine Kinase MB 7.6 NG/ML Troponin I LESS THAN 0.02 NG/ML LESS THAN 0.02 NG/ML Blood Urea Nitrogen 38 MG/DL Creatinine 1.54 MG/DL Random Glucose 88 MG/DL Total Protein 5.9 GM/DL Albumin 1.6 GM/DL Calcium Level 8.3 MG/DL Phosphorus Level 2.6 MG/DL Magnesium Level 1.9 MG/DL Alkaline Phosphatase 71 U/L Aspartate Amino Transf (AST/SGOT) 41 U/L Alanine Aminotransferase (ALT/SGPT) 33 U/L Total Bilirubin 0.4 MG/DL Sodium Level 142 MEQ/L Potassium Level 3.7 MEQ/L Chloride Level 113 MEQ/L Carbon Dioxide Level 19.3 MEQ/L Anion Gap 10 MEQ/L Estimat Glomerular Filtration Rate 33 ML/MIN Physical Exam GENERAL: awake and alert, not in respiratory distress. SKIN: Warm and dry. No generalized rash, no ecchymoses and no evidence of embolic lesions. HEAD: Atraumatic. Normocephalic. No temporal wasting, or tenderness. EYES: [place] conjunctiva. No petechia or hemorrhage. No scleral icterus. No injection or drainage. EARS, NOSE AND THROAT: Nose without bleeding or purulent nasal discharge. Mucous membranes pink and moist. No oral lesions noted. NECK: Trachea midline. Supple and not tender, no meningeal signs CARDIOVASCULAR: Regular rate and rhythm. No murmurs, rubs or gallops heard RESPIRATORY: Clear to auscultation. Breath sounds equal bilaterally. No rales , wheezing or rhonchi ABDOMEN: Soft, nondistended, with tenderness LLQ. No guarding, no rebound. Bowel sounds present and normoactive. No organomegaly. EXTREMITIES: No clubbing, cyanosis, or edema.No joint effusion, has good ROM. No calf tenderness. NEUROLOGICAL: Non-focal PSYCHIATRIC: Normal affect, calm and cooperative. LINE: No evidence of infection Assessment & Plan Remarks IMPRESSION Diverticulitis with microperforation and abscess formation - has had multiple episodes of diverticulitis treated as outpatient Atrial fib with RVR, back in NSR Leukocytosis, mild RECOMMENDATION Continue Zosyn Follow C/S OK not to give any further Vanco Monitor response to Rx Monitor progress Choices for po: Bactrim/Flagyl, Bactrim/Augmentin, Bactrim/Clinda, Bactrim/ Doxy Emma Dixon MD Apr 16, 2017 16:04
[2017-04-16] MEDS: METOPROLOL TARTRATE 25 MG TAB PO SCH (20:12)
[2017-04-17] VITALS (28 sets, daily range): BP systolic 154–180; BP diastolic 84–106; PULSE 76–100; RESP 16–20; TEMP 97.3–98.1; O2SAT 94–96
[2017-04-17] MEDS: ALPRAZolam 0.5 MG TAB PO PRN (01:36)
[2017-04-17] MEDS: PIPERACIL-TAZO 3.375 GM PREMIX 50 ML IV SCH ×4 (01:39→17:01)
[2017-04-17] MEDS: ACETAMINOPHEN/HYDROcodone 325 MG/5 MG TAB PO PRN ×3 (01:39→17:01)
[2017-04-17] MEDS: HEPARIN SODIUM - SQ 10,000 UNITS/ML VIAL SQ SCH ×4 (02:42→21:04)
[2017-04-17] MEDS: SODIUM CHLOR 0.9% 1000 ML INJ 1,000 ML IV SCH (03:00)
--- NOTE | 2017-04-17 08:47 | HHI.PR ---
Subjective Remarks C/R Surg afebrile, VSS +BM more comfortable Objective - Vital Signs Date Time Temp Pulse Resp B/P (MAP) Pulse Ox O2 Delivery O2 Flow Rate FiO2 04/17/17 07:30 97.9 86 16 157/86 (109) 96 04/16/17 20:19 Room Air 04/16/17 07:30 2.00 Result Diagram: 04/16/17 0650 04/16/17 0650 Objective Remarks PE alert Abd - soft, mild tenderness LLQ, no tympany A/P Assessment and Plan Imp: some better HR down +BM try incr PO Yordy Lynch MD Apr 17, 2017 08:47
--- NOTE | 2017-04-17 08:58 | HHI.PR ---
Subjective Remarks Patient was admitted to colorectal surgery service on April 12, 2017. Patient reported that on that particular day, she was having severe left lower quadrant abdominal pain which came on suddenly. Denies any associated nausea/vomiting/diarrhea. She reports that the pain was so severe and this was the main reason why she came to hospital. Denies any fever. Denies any vomiting/diarrhea. Patient denies any associated chest pain/palpitations/dizziness/syncopal episodes. Denies having any blood in her stool or in her urine. Denies coughing out blood. Denies fever. Patient and nursing staff reported the patient was receiving pain medications Dilaudid 0.3 mg almost every 2 hours for her abdominal pain while in hospital. She initially has elevated blood pressures around systolic of 140 to 170s. However by the evening shift, her blood pressure was dropping to as low as 60s over 40s. 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 She was also having associated tachycardia. Patient does report of history of hypertension for which she takes antihypertensives at home. She has not received any of these medications while in hospital to explain her hypotension. She reports of history of tachycardia. She is not on any blood thinners at home. 9-7 called to see patient patient noted to be in A. fib with RVR will give Cardizem IV and placed on Cardizem drip and transferred to the ICU Consult cardiology. Will get a cardiac echo. We will trend troponins and cardiac enzymes We'll get an ABG Discussed with Dr. 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 CONTROLLED STILL ON CARDIZEM DRIP SEEN BY CARDIOLOGY AND INFECTIOUS DISEASE COMPLAINS OF PAIN ALL OVER TOLERATING DIET SO FAR AM LABS DW CARDIO AND RN AND PATIENT 9-9 DENIES ANY ABDOMINAL PAIN AT THIS MOMENT DIET ADVANCED BY SURGERY MONITOR BLOOD PRESSURES AM LABS WATCH RENAL FUNCTIONS DW RN AND PT Objective Vitals Vital Signs Date Time Temp Pulse Resp B/P (MAP) Pulse Ox O2 Delivery O2 Flow Rate FiO2 04/17/17 07:30 97.9 86 16 157/86 (109) 96 04/17/17 07:04 98.1 94 18 169/93 (118) 94 04/17/17 05:00 76 04/17/17 04:00 80 04/17/17 03:00 77 04/17/17 02:00 84 04/17/17 01:33 97.3 80 20 154/84 (107) 95 04/17/17 01:00 84 04/17/17 00:00 80 04/16/17 23:00 76 04/16/17 22:00 82 04/16/17 21:00 84 04/16/17 20:19 95 Room Air 04/16/17 20:16 97.3 89 20 160/83 (108) 95 04/16/17 20:00 74 04/16/17 19:00 76 04/16/17 18:00 77 04/16/17 17:00 80 04/16/17 16:00 83 04/16/17 15:15 98.0 83 20 154/79 (104) 93 04/16/17 15:00 75 04/16/17 14:00 72 04/16/17 13:00 82 04/16/17 12:00 72 04/16/17 11:46 97.4 77 20 143/75 (97) 95 04/16/17 11:00 76 04/16/17 10:00 70 04/16/17 09:00 74 I/O 04/16/17 04/16/17 04/16/17 04/17/17 04/17/17 04/17/17 06:59 14:59 22:59 06:59 14:59 22:59 Intake Total 480 ml 105 ml 1450 ml 630 ml Output Total 700 ml 400 ml 800 ml Balance -220 ml 105 ml 1050 ml -170 ml Intake Oral 480 ml 1200 ml 480 ml IV Total 0 ml 105 ml 250 ml 150 ml Output Urine Total 700 ml 400 ml 800 ml Stool Total 0 ml # Voids 2 # Bowel Movements 0 Result Diagram: 04/16/17 0650 04/16/17 0650 Other Results Laboratory Tests Test 04/14/17 16:11 04/14/17 21:42 04/15/17 04:03 04/15/17 10:29 White Blood Count 7.8 TH/MM3 8.7 TH/MM3 9.4 TH/MM3 Red Blood Count 4.14 MIL/MM3 4.07 MIL/MM3 4.03 MIL/MM3 Hemoglobin 12.8 GM/DL 12.7 GM/DL 12.6 GM/DL Hematocrit 40.1 % 39.5 % 39.2 % Mean Corpuscular Volume 96.9 FL 97.0 FL 97.2 FL Mean Corpuscular Hemoglobin 30.8 PG 31.1 PG 31.3 PG Mean Corpuscular Hemoglobin Concent 31.8 % 32.1 % 32.2 % Red Cell Distribution Width 16.5 % 16.3 % 16.4 % Platelet Count 209 TH/MM3 190 TH/MM3 156 TH/MM3 Mean Platelet Volume 8.0 FL 7.6 FL 7.3 FL Neutrophils (%) (Auto) 93.9 % 94.0 % 93.7 % Lymphocytes (%) (Auto) 3.7 % 3.4 % 3.3 % Monocytes (%) (Auto) 2.2 % 2.5 % 2.8 % Eosinophils (%) (Auto) 0.1 % 0.0 % 0.1 % Basophils (%) (Auto) 0.1 % 0.1 % 0.1 % Neutrophils # (Auto) 7.3 TH/MM3 8.2 TH/MM3 8.8 TH/MM3 Lymphocytes # (Auto) 0.3 TH/MM3 0.3 TH/MM3 0.3 TH/MM3 Monocytes # (Auto) 0.2 TH/MM3 0.2 TH/MM3 0.3 TH/MM3 Eosinophils # (Auto) 0.0 TH/MM3 0.0 TH/MM3 0.0 TH/MM3 Basophils # (Auto) 0.0 TH/MM3 0.0 TH/MM3 0.0 TH/MM3 CBC Comment DIFF FINAL AUTO DIFF AUTO DIFF Differential Comment FINAL DIFF MANUAL FINAL DIFF MANUAL Blood Urea Nitrogen 45 MG/DL 43 MG/DL 41 MG/DL Creatinine 2.71 MG/DL 2.43 MG/DL 2.09 MG/DL Random Glucose 151 MG/DL 145 MG/DL 148 MG/DL Total Protein 5.9 GM/DL 5.8 GM/DL 5.8 GM/DL Albumin 1.9 GM/DL 1.9 GM/DL 1.7 GM/DL Calcium Level 8.4 MG/DL 8.2 MG/DL 7.9 MG/DL Alkaline Phosphatase 43 U/L 45 U/L 46 U/L Aspartate Amino Transf (AST/SGOT) 65 U/L 57 U/L 54 U/L Alanine Aminotransferase (ALT/SGPT) 34 U/L 33 U/L 33 U/L Total Bilirubin 0.3 MG/DL 0.3 MG/DL 0.3 MG/DL Sodium Level 140 MEQ/L 143 MEQ/L 143 MEQ/L Potassium Level 3.8 MEQ/L 3.6 MEQ/L 3.9 MEQ/L Chloride Level 112 MEQ/L 112 MEQ/L 117 MEQ/L Carbon Dioxide Level 20.0 MEQ/L 18.6 MEQ/L 16.9 MEQ/L Anion Gap 8 MEQ/L 12 MEQ/L 9 MEQ/L Estimat Glomerular Filtration Rate 17 ML/MIN 19 ML/MIN 23 ML/MIN Total Creatine Kinase 822 U/L 825 U/L 428 U/L Creatine Kinase MB 28.9 NG/ML 25.8 NG/ML 20.5 NG/ML Creatine Kinase MB % 3.5 % 3.1 % 4.8 % Differential Total Cells Counted 100 100 Neutrophils % (Manual) 86 % 63 % Band Neutrophils % 11 % 24 % Lymphocytes % 1 % 9 % Neutrophils # (Manual) 8.6 TH/MM3 8.4 TH/MM3 Metamyelocytes 2 % 1 % Monocytes % 2 % Promyelocytes 1 % Platelet Estimate NORMAL Platelet Morphology Comment NORMAL Red Cell Morphology Comment NORMAL Phosphorus Level 3.4 MG/DL Magnesium Level 1.8 MG/DL Hemoglobin A1c 6.5 % Free Thyroxine 0.98 NG/DL Thyroid Stimulating Hormone 3rd Gen 0.455 uIU/ML Blood Gas Puncture Site RT RADIAL Blood Gas Patient Temperature 98.6 Blood Gas HCO3 17 mmol/L Blood Gas Base Excess -9.3 mmol/L Blood Gas Oxygen Saturation 95 % Arterial Blood pH 7.26 Arterial Blood Partial Pressure CO2 39 mmHg Arterial Blood Partial Pressure O2 90 mmHg Arterial Blood Oxygen Content 23.6 Vol % Arterial Blood Carboxyhemoglobin 1.1 % Arterial Blood Methemoglobin 0.5 % Blood Gas Hemoglobin 17.7 G/DL Oxygen Delivery Device NASAL CANNULA Blood Gas Liter Flow 2 L/M Test 04/15/17 10:40 04/15/17 22:59 04/16/17 06:50 Lactic Acid Level 1.3 mmol/L Total Creatine Kinase 251 U/L 183 U/L 84 U/L Creatine Kinase MB 13.7 NG/ML 7.6 NG/ML Creatine Kinase MB % 5.5 % Troponin I LESS THAN 0.02 NG/ML LESS THAN 0.02 NG/ML LESS THAN 0.02 NG/ML White Blood Count 11.1 TH/MM3 Red Blood Count 3.66 MIL/MM3 Hemoglobin 11.5 GM/DL Hematocrit 35.2 % Mean Corpuscular Volume 96.2 FL Mean Corpuscular Hemoglobin 31.5 PG Mean Corpuscular Hemoglobin Concent 32.8 % Red Cell Distribution Width 16.3 % Platelet Count 166 TH/MM3 Mean Platelet Volume 8.2 FL Neutrophils (%) (Auto) 91.0 % Lymphocytes (%) (Auto) 3.7 % Monocytes (%) (Auto) 4.9 % Eosinophils (%) (Auto) 0.3 % Basophils (%) (Auto) 0.1 % Neutrophils # (Auto) 10.1 TH/MM3 Lymphocytes # (Auto) 0.4 TH/MM3 Monocytes # (Auto) 0.5 TH/MM3 Eosinophils # (Auto) 0.0 TH/MM3 Basophils # (Auto) 0.0 TH/MM3 CBC Comment AUTO DIFF Differential Total Cells Counted 100 Neutrophils % (Manual) 74 % Band Neutrophils % 20 % Lymphocytes % 1 % Monocytes % 5 % Neutrophils # (Manual) 10.4 TH/MM3 Nucleated Red Blood Cells 1 /100 WBC Differential Comment FINAL DIFF MANUAL Platelet Estimate NORMAL Platelet Morphology Comment NORMAL Red Cell Morphology Comment NORMAL Blood Urea Nitrogen 38 MG/DL Creatinine 1.54 MG/DL Random Glucose 88 MG/DL Total Protein 5.9 GM/DL Albumin 1.6 GM/DL Calcium Level 8.3 MG/DL Phosphorus Level 2.6 MG/DL Magnesium Level 1.9 MG/DL Alkaline Phosphatase 71 U/L Aspartate Amino Transf (AST/SGOT) 41 U/L Alanine Aminotransferase (ALT/SGPT) 33 U/L Total Bilirubin 0.4 MG/DL Sodium Level 142 MEQ/L Potassium Level 3.7 MEQ/L Chloride Level 113 MEQ/L Carbon Dioxide Level 19.3 MEQ/L Anion Gap 10 MEQ/L Estimat Glomerular Filtration Rate 33 ML/MIN Random Vancomycin Level 14.0 COMMENT Imaging Last Impressions Consultation 04/14/17 1534 Signed Impressions: Service Date/Time: Friday, April 14, 2017 15:34 - CONCLUSION: 1. Drainage performed secondary to an inadequate volume Gabriel Taylor MD Abdomen/Pelvis CT 04/12/17 0000 Signed Impressions: Service Date/Time: Wednesday, April 12, 2017 12:43 - CONCLUSION: 1. Descending colonic diverticulitis with abscess formation and a few scattered foci of free air and fluid characteristic of perforation. 2. Severe sigmoid diverticulosis. 3. Atherosclerosis. Nakul A. Ralph, MD Objective Remarks GENERAL: Awake and alert but in atrial fibrillation NOW CONTROLLED appears to be in MILD distress- LESS lethargic at this time SKIN: Warm and dry. HEAD: Atraumatic. Normocephalic. EYES: Pupils equal and round. No scleral icterus. No injection or drainage. Extraocular muscles intact ENT: No nasal bleeding or discharge. Mucous membranes pink and moist. Oral mucosa is moist tongue is midline NECK: Trachea midline. No JVD. Supple CARDIOVASCULAR: IRRegular rate and rhythm. In A. fib S1-S2 no S3 or S4 no heave or thrill or rub RESPIRATORY: No accessory muscle use. Clear to auscultation. Breath sounds equal bilaterally. GASTROINTESTINAL: Abdomen soft but LESS tender left quadrant nondistended. Hepatic and splenic margins not palpable. NO rebound MUSCULOSKELETAL: Extremities without clubbing, cyanosis, or edema. No obvious deformities. NEUROLOGICAL: Awake and alert. No obvious cranial nerve deficits. Motor grossly within normal limits. Five out of 5 muscle strength in the arms and legs. Normal speech. PSYCHIATRIC: Appropriate mood and affect; insight and judgment normal. Procedures NONE Medications and IVs Current Medications Morphine Sulfate (Morphine Inj) 4 mg ONCE ONCE IV PUSH Last administered on 12:00; Start 04/12/17 at 11:45; Stop 04/12/17 at 11:46; Status DC Ondansetron HCl (Zofran Inj) 4 mg ONCE ONCE IVP Last administered on 04/12/17 11:59; Start 04/12/17 at 11:45; Stop 04/12/17 at 11:46; Status DC Sodium Chloride (NS Flush) 2 ml UNSCH PRN IV FLUSH FLUSH AFTER USING IV ACCESS Last administered on 04/12/17 12:00; Start 04/12/17 at 11:45; Stop 04/15/17 at 11: 20; Status DC Hydromorphone HCl (Dilaudid Pf Inj) 0.5 mg ONCE ONCE IVS Last administered on 04/12/17 13:18; Start 04/12/17 at 13:15; Stop 04/12/17 at 13:16; Status DC Metronidazole 100 ml @ 100 mls/hr ONCE ONCE IV Last administered on 04/12/17 13:18; Start 04/12/17 at 13:15; Stop 04/13/17 at 09:11; Status DC Ceftazidime 2000 mg/Sodium Chloride 100 ml @ 200 mls/hr ONCE ONCE IV Last administered on 04/12/17 14:15; Start 04/12/17 at 13:15; Stop 04/12/17 at 13:44; Status DC Hydromorphone HCl (Dilaudid Pf Inj) 0.5 mg ONCE ONCE IV PUSH Last administered on 04/12/17 15:43; Start 04/12/17 at 15:45; Stop 04/12/17 at 15:46; Status DC Sodium Chloride 1,000 ml @ 2,000 mls/hr Q30M ONCE IV Last administered on 15:42; Start 04/12/17 at 15:45; Stop 04/12/17 at 16:14; Status DC Morphine Sulfate (Morphine Inj) 1 mg Q3H PRN IV PAIN 1-10 Last administered on 04/12/17 17:36; Start 04/12/17 at 17:45; Stop 04/12/17 at 19:28; Status DC Ondansetron HCl (Zofran Inj) 4 mg Q6H PRN IV PUSH NAUSEA Last administered on 05:33; Start 04/12/17 at 17:45 Dextrose/Sodium Chloride 1,000 ml @ 150 mls/hr Q6H40M IV Last administered on 04/15/17 08:37; Start 04/12/17 at 18:00; Stop 04/15/17 at 11:23; Status DC Ceftazidime 2000 mg/Sodium Chloride 100 ml @ 200 mls/hr Q8H IV Last administered on 04/13/17 19:52; Start 04/12/17 at 22:00; Stop 04/14/17 at 05:03; Status DC Hydromorphone HCl (Dilaudid Pf Inj) 0.3 mg Q3H PRN IV PAIN 1-10 Last administered on 04/13/17 11:35; Start 04/12/17 at 20:00; Stop 04/13/17 at 12:49; Status DC Alprazolam (Xanax) 0.5 mg Q8H PRN PO ANXIETY Last administered on 04/13/17 19: 52; Start 04/13/17 at 09:15; Stop 04/14/17 at 04:57; Status DC Aspirin (Ecotrin Ec) 81 mg BID PO ; Start 04/13/17 at 09:15; Stop 04/13/17 at 12: 48; Status DC Atenolol (Tenormin) 50 mg DAILY PO ; Start 04/13/17 at 09:15; Status Future Hold Guanfacine HCl (Tenex) 1 mg HS PO Last administered on 04/13/17 19:52; Start at 21:00; Stop 04/14/17 at 03:03; Status DC Triamterene/HCTZ (Maxzide 37.5-25 Mg) 1 tab EVERY OTHER DAY PO ; Start 04/15/17 at 09:00; Stop 04/15/17 at 09:00; Status DC Losartan Potassium (Cozaar) 50 mg DAILY PO ; Start 04/14/17 at 09:00; Status Future Hold Aspirin (Ecotrin Ec) 81 mg DAILY PO Last administered on 04/16/17 08:00; Start 04/14/17 at 09:00 Hydromorphone HCl (Dilaudid Pf Inj) 0.3 mg Q2H PRN IV PAIN 1-10 Last administered on 04/13/17 22:01; Start 04/13/17 at 13:00; Stop 04/14/17 at 06:21; Status DC Sodium Chloride 250 ml @ 250 mls/hr UNSCH X1 IV Last administered on 03:26; Start 04/14/17 at 03:30; Stop 04/14/17 at 04:30; Status DC Alprazolam (Xanax) 0.25 mg Q8H PRN PO ANXIETY Last administered on 04/17/17 01: 36; Start 04/14/17 at 09:15 Ketorolac Tromethamine (Toradol Inj) 15 mg Q6H PRN IV PUSH pain >5 Last administered on 04/14/17 05:33; Start 04/14/17 at 05:00; Stop 04/19/17 at 04:59; Status Future Hold Piperacillin Sod/ Tazobactam Sod 100 ml @ 200 mls/hr Q6H IV ; Start 04/14/17 at 06:00; Stop 04/14/17 at 06:00; Status DC Sodium Chloride 500 ml @ 500 mls/hr BOLUS ONCE IV Last administered on 05:33; Start 04/14/17 at 05:15; Stop 04/14/17 at 06:14; Status DC Piperacillin Sod/ Tazobactam Sod 50 ml @ 200 mls/hr Q6H IV Last administered on 04/17/17 06:29; Start 04/14/17 at 06:00 Heparin Sodium (Porcine) (Heparin Inj) 5,000 units Q8HR SQ Last administered on 04/17/17 06:29; Start 04/14/17 at 14:00 Pantoprazole Sodium (Protonix Inj) 40 mg Q24H IV PUSH Last administered on 08:03; Start 04/14/17 at 09:00 Acetaminophen/ Hydrocodone Bitart ([place] 5-325 Mg) 1 tab Q6H PRN PO pain 1-10 Last administered on 04/15/17 02:38; Start 04/14/17 at 08:30; Stop 04/15/17 at 11: 23; Status DC Atenolol (Tenormin) 50 mg STAT ONCE PO Last administered on 04/15/17 07:21; Start 04/15/17 at 07:30; Stop 04/15/17 at 07:31; Status DC Diltiazem HCl (Cardizem Inj) 20 mg ONCE ONCE IV PUSH Last administered on 10:44; Start 04/15/17 at 10:30; Stop 04/15/17 at 10:31; Status DC Diltiazem HCl 125 mg/Sodium Chloride 125 ml @ 5 mls/hr TITRATE PRN IV Tachycardia; Start 04/15/17 at 10:30 Sodium Chloride 1,000 ml @ 999 mls/hr BOLUS ONCE IV Last administered on 10:45; Start 04/15/17 at 10:45; Stop 04/15/17 at 11:45; Status DC Sodium Chloride 1,000 ml @ 150 mls/hr Q6H40M IV Last administered on 04/16/17 03:54; Start 04/15/17 at 11:00; Stop 04/17/17 at 08:08; Status DC Vancomycin HCl 1250 mg/Sodium Chloride 262.5 ml @ 262.5 mls/ hr ONCE ONCE IV ; Start 04/15/17 at 10:45; Stop 04/15/17 at 11:44; Status UNV Pharmacy Profile Note 0 ml @ 0 mls/hr UNSCH OTHER ; Start 04/15/17 at 10:45 Sodium Chloride (NS Flush) 2 ml UNSCH PRN IV FLUSH FLUSH AFTER USING IV ACCESS ; Start 04/15/17 at 10:45 Sodium Chloride (NS Flush) 2 ml BID IV FLUSH Last administered on 04/16/17 08: 00; Start 04/15/17 at 10:45 Acetaminophen (Tylenol) 650 mg Q6H PRN PO PAIN SCALE 1 TO 2; Start 04/15/17 at 10:45 Oxycodone/ Acetaminophen (Percocet 5-325 Mg) 1 tab Q6H PRN PO PAIN SCALE 3 TO 5; Start 04/15/17 at 10:45; Stop 04/15/17 at 19:28; Status DC Oxycodone/ Acetaminophen (Percocet 10-325 Mg) 1 tab Q6H PRN PO PAIN SCALE 6 TO 10; Start 04/15/17 at 10:45; Stop 04/15/17 at 19:28; Status DC Morphine Sulfate (Morphine Inj) 2 mg Q3H PRN IV Pain 3-5; if unable to take PO Last administered on 04/15/17 16:12; Start 04/15/17 at 10:45; Stop 04/15/17 at 19: 28; Status DC Morphine Sulfate (Morphine Inj) 4 mg Q3H PRN IV Pain 6-10;if unable to take PO ; Start 04/15/17 at 10:45; Stop 04/15/17 at 19:28; Status DC Naloxone HCl (Narcan Inj) 0.4 mg UNSCH PRN IV SEE LABEL COMMENTS; Start at 10:45 Senna/Docusate Sodium (Miranda-Colace) 1 tab BID PO Last administered on 04/16/17 20:12; Start 04/15/17 at 21:00 Magnesium Hydroxide (Milk Of Magnesia Liq) 30 ml Q12H PRN PO MILD - MODERATE CONSTIPATION; Start 04/15/17 at 10:45 Sennosides (Senokot) 17.2 mg Q12H PRN PO MODERATE - SEVERE CONSTIPATION; Start 04/15/17 at 10:45 Bisacodyl (Dulcolax Supp) 10 mg DAILY PRN RECTAL SEVERE CONSITIPATION; Start at 10:45 Lactulose (Lactulose Liq) 30 ml DAILY PRN PO SEVERE CONSITIPATION; Start at 10:45; Stop 04/15/17 at 11:51; Status DC Vancomycin HCl 1500 mg/Sodium Chloride 515 ml @ 250 mls/hr ONCE ONCE IV ; Start 04/15/17 at 14:00; Stop 04/15/17 at 16:03; Status DC Acetaminophen/ Hydrocodone Bitart ([place] 5-325 Mg) 1 tab Q6H PRN PO PAIN SCALE 5 TO 10 Last administered on 04/17/17 01:39; Start 04/15/17 at 19:30 Atorvastatin Calcium (Lipitor) 10 mg MoWeFr@0900 PO Last administered on 10:07; Start 04/16/17 at 09:30 Vancomycin HCl 1500 mg/Sodium Chloride 515 ml @ 257.5 mls/ hr ONCE ONCE IV Last administered on 04/16/17 13:00; Start 04/16/17 at 11:00; Stop 04/16/17 at 12: 59; Status DC Polyethylene Glycol (Miralax) 17 gm DAILY PRN PO no bowel movement Last administered on 04/16/17 13:54; Start 04/16/17 at 09:45 Metoprolol Tartrate (Lopressor) 25 mg BID PO Last administered on 04/16/17 20: 12; Start 04/16/17 at 21:00 Urinary Catheter: No Vascular Central Line Catheter: No A/P Assessment and Plan Impression: A. fib with RVR-atenolol has been restarted. We'll need to get an Cardizem IV push 20 mg. And Cardizem drip and transferred to the ICU will consult cardiology and get an echocardiogram and trend troponins--IN CVPCU NOW-- WEAN OFF CARDIZEM DRIP Hypotension with reflex tachycardia- suspect volume Depletion. Also compounded by pain medicine as well.-Appears that patient has a history of what sounds like atrial fibrillation Rhabdomyolysis trending down Acute renal failure- secondary to dehydration possible early septic shock- AGGRESSIVE FLUID REHYDRATION Ruptured diverticula as well as with early abscess formation. No drainable fluid per IR. Procedure was canceled Leukocytosis with left shift and bandemia on antibiotics ZOSYN AND VANCO History of Hypertension CAD status post cardiac stents 2 TIA 2 Sinus tachycardia per patient Atrial fibrillation with RVR continue on Cardizem drip consult cardiology trend troponins echocardiogram- WEAN OFF CARDIZEM DRIP HYPOTENSION- GIVE IV FLUIDS NS BOLUS 1 LITER--IMPROVED- RESOLVED RENAL INSUFFICIENCY ABDOMINAL PAIN IMPROVING- DIET ADVANCED BY CRS Plan: Continue IV fluids--HEPLOCK IV Also continue maintenance IV fluids with normal saline at 1 50 cc per hour.-- HEPLOCK IV We will recheck labs in a.m. Adjust medications We'll switch antibiotics to Zosyn. Hold narcotics. Will manage pain will discontinue Toradol Use narcotics for pain control If the blood pressure permits, we can slowly and small dose pain medications. Patient is quite truly in pain. Restart atenolol continue on Cardizem drip- OF CARDIZEM DRIP Bladder scan to make sure the patient's acute renal failure is not from dehydration. We'll follow CPK, and renal function. If needed, would start patient on bicarbonate drip. We will follow patient along with you. DVT prophylaxiswith heparin. GI prophylaxis on pantoprazole. See orders A.m. labs Transferred to ICU for close monitoring and Cardizem drip-- OUT OF ICU- OFF CARDIZEM DRIP CHIP BRANDON AND PT Gagan Johnson DO Apr 17, 2017 08:58
[2017-04-17] MEDS: DOCUSATE SODIUM 50 MG/SENNA 8.6 MG TAB PO SCH ×2 (09:47→21:00)
[2017-04-17] MEDS: METOPROLOL TARTRATE 25 MG TAB PO SCH ×2 (09:47→21:04)
[2017-04-17] MEDS: ASPIRIN EC 81 MG TABEC PO SCH (09:47)
[2017-04-17] MEDS: SODIUM CHLORIDE 0.9% FLUSH 10 ML FLUSH IV FLUSH SCH ×2 (09:48→21:07)
[2017-04-17] MEDS: PANTOPRAZOLE SODIUM 40 MG VIAL IV PUSH SCH (09:48)
--- NOTE | 2017-04-17 17:39 | PD.CARD.PN ---
Subjective Subjective Remarks FEELS BETTER NO COMPLAINTS OF CHEST PAIN OR SOB REMAINS IN SINUS RHYTHM Objective Medications Current Medications Medications (Trade) Dose Ordered Sig/Allie Route Start Time Stop Time Status Last Admin (Zofran Inj) 4 mg Q6H PRN IV PUSH 04/12/17 17:45 04/14/17 05:33 (Tenormin) 50 mg DAILY PO 04/13/17 09:15 Future Hold (Cozaar) 50 mg DAILY PO 04/14/17 09:00 Future Hold (Ecotrin Ec) 81 mg DAILY PO 04/14/17 09:00 04/17/17 09:47 (Xanax) 0.25 mg Q8H PRN PO 04/14/17 09:15 04/17/17 01:36 (Toradol Inj) 15 mg Q6H PRN IV PUSH 04/14/17 05:00 04/19/17 04:59 Future Hold 04/14/17 05:33 Piperacillin Sod/ Tazobactam Sod 50 ml @ 200 mls/hr Q6H IV 04/14/17 06:00 04/17/17 17:01 (Heparin Inj) 5,000 units Q8HR SQ 04/14/17 14:00 04/17/17 14:50 (Protonix Inj) 40 mg Q24H IV PUSH 04/14/17 09:00 04/17/17 09:48 Diltiazem HCl 125 mg/Sodium Chloride 125 ml @ 5 mls/hr TITRATE PRN IV 04/15/17 10:30 Pharmacy Profile Note 0 ml @ 0 mls/hr UNSCH OTHER 04/15/17 10:45 (NS Flush) 2 ml UNSCH PRN IV FLUSH 04/15/17 10:45 (NS Flush) 2 ml BID IV FLUSH 04/15/17 10:45 04/17/17 09:48 (Tylenol) 650 mg Q6H PRN PO 04/15/17 10:45 (Narcan Inj) 0.4 mg UNSCH PRN IV 04/15/17 10:45 (Miranda-Colace) 1 tab BID PO 04/15/17 21:00 04/17/17 09:47 (Milk Of Magnesia Liq) 30 ml Q12H PRN PO 04/15/17 10:45 (Senokot) 17.2 mg Q12H PRN PO 04/15/17 10:45 (Dulcolax Supp) 10 mg DAILY PRN RECTAL 04/15/17 10:45 ([place] 5-325 Mg) 1 tab Q6H PRN PO 04/15/17 19:30 04/17/17 17:01 (Lipitor) 10 mg MoWeFr@0900 PO 04/16/17 09:30 04/16/17 10:07 (Miralax) 17 gm DAILY PRN PO 04/16/17 09:45 04/16/17 13:54 (Lopressor) 25 mg BID PO 04/16/17 21:00 04/17/17 09:47 Vital Signs / I&O Vital Signs Date Time Temp Pulse Resp B/P (MAP) Pulse Ox O2 Delivery O2 Flow Rate FiO2 04/17/17 17:09 100 04/17/17 16:08 86 04/17/17 15:28 95 04/17/17 15:28 97.9 81 16 163/84 (110) 96 04/17/17 15:28 96 Room Air 04/17/17 14:01 95 04/17/17 13:43 76 04/17/17 12:15 18 04/17/17 12:14 80 04/17/17 11:45 94 04/17/17 11:30 96 Room Air 04/17/17 11:30 97.9 81 16 163/84 (110) 96 04/17/17 10:00 82 04/17/17 09:00 82 04/17/17 08:00 80 04/17/17 07:30 83 04/17/17 07:30 97.9 86 16 157/86 (109) 96 04/17/17 07:30 96 Room Air 04/17/17 07:04 98.1 94 18 169/93 (118) 94 04/17/17 05:00 76 04/17/17 04:00 80 04/17/17 03:00 77 04/17/17 02:00 84 04/17/17 01:33 97.3 80 20 154/84 (107) 95 04/17/17 01:00 84 04/17/17 00:00 80 04/16/17 23:00 76 04/16/17 22:00 82 04/16/17 21:00 84 04/16/17 20:19 95 Room Air 04/16/17 20:16 97.3 89 20 160/83 (108) 95 04/16/17 20:00 74 04/16/17 19:00 76 04/16/17 18:00 77 I/O 04/16/17 04/16/17 04/16/17 04/17/17 04/17/17 04/17/17 07:00 15:00 23:00 07:00 15:00 23:00 Intake Total 480 ml 105 ml 1450 ml 630 ml 480 ml Output Total 700 ml 400 ml 800 ml Balance -220 ml 105 ml 1050 ml -170 ml 480 ml Intake Oral 480 ml 1200 ml 480 ml 480 ml IV Total 0 ml 105 ml 250 ml 150 ml Output Urine Total 700 ml 400 ml 800 ml Stool Total 0 ml # Voids 2 4 # Bowel Movements 0 4 Physical Exam NAD ANICTERIC, VILMA FLAT JVD LUNGS CLEAR RRR, 1-2/6 LLSB ABD SOFT EXTR WITHOUT EDEMA Assessment and Plan Assessment and Plan PAROXYSMAL ATRIAL FIBRILLATION, BACK IN SINUS RHYTHM ASHD, NO ANGINA HTN, REMAINS HIGH RISK [id number] SCORE, 7PTS PLAN: INCREASE METOPROLOL 50 MG BID ADD CARDIZEM CD 120 MG QD RELUCTANT TO START ANTICOAGULATION 2/2 HIGH RISK FOR FALLS AND HISTORY OF BRAIN ANEURYSM Jose Carlos Kent MD Apr 17, 2017 17:39
[2017-04-17 20:52] LABS: AUTOMATED NEUTROPHIL # 7.9 TH/MM3 (1.8-7.7); BASOPHIL % 0.1 % (0.0-2.0); EOSINOPHIL # 0.1 TH/MM3 (0-0.4); EOSINOPHIL % 0.6 % (0.0-4.0); HEMATOCRIT 34.2 % (35.0-46.0); LYMPH % 7.5 % (9.0-44.0); LYMPHOCYTE # 0.7 TH/MM3 (1.0-4.8); MEAN CELL VOLUME 93.3 FL (80.0-100.0); MEAN CORPUSCULAR HEMOGLOBIN 31.2 PG (27.0-34.0); MEAN CORPUSCULAR HGB CONC 33.4 % (32.0-36.0); MONO % 8.8 % (0.0-8.0); PLATELET COUNT 172 TH/MM3 (150-450); RED BLOOD COUNT 3.66 MIL/MM3 (4.00-5.30); RED CELL DISTRIBUTION WIDTH 16.1 % (11.6-17.2); WHITE BLOOD COUNT 9.5 TH/MM3 (4.0-11.0)
[2017-04-17 20:54] LABS: HEMO FLAGS AUTO DIFF
[2017-04-17 21:14] LABS: ANION GAP 8 MEQ/L (5-15); AST (GOT) 42 U/L (15-37); BICARBONATE 20.6 MEQ/L (21.0-32.0); BLOOD UREA NITROGEN 39 MG/DL (7-18); CHLORIDE 112 MEQ/L (98-107); GLOMERULAR FILTRATION RATE 37 ML/MIN (>89); MAGNESIUM 1.9 MG/DL (1.5-2.5); POTASSIUM 3.1 MEQ/L (3.5-5.1); SODIUM (NA) 141 MEQ/L (136-145)
[2017-04-17 21:20] LABS: ALKALINE PHOSPHATASE 109 U/L (45-117); ALT (GPT) 40 U/L (10-53); TOTAL BILIRUBIN ADULT 0.6 MG/DL (0.2-1.0)
[2017-04-17 22:15] LABS: BANDS 13 % (0-6); MYELOCYTES 1 % (0-0); NEUTROPHIL # MANUAL DIFF 7.9 TH/MM3 (1.8-7.7); POLYS (SEG NEUTROPHILS) 69 % (16-70); TOXIC GRANULATION 1+ (NORMAL); WBC DIFF SAMPLE 100
[2017-04-17 22:16] LABS: PLATELET ESTIMATE SMEAR LOW (NORMAL); PLATELET MORPHOLOGY NORMAL (NORMAL); SCAN/DIFF FINAL DIFF MANUAL
[2017-04-18] VITALS (28 sets, daily range): BP systolic 151–168; BP diastolic 85–93; PULSE 74–106; RESP 16–18; TEMP 97.4–98.3; O2SAT 94–98
[2017-04-18] MEDS: ACETAMINOPHEN/HYDROcodone 325 MG/5 MG TAB PO PRN ×3 (00:15→21:20)
[2017-04-18] MEDS: PIPERACIL-TAZO 3.375 GM PREMIX 50 ML IV SCH ×4 (00:15→17:43)
[2017-04-18] MEDS: HEPARIN SODIUM - SQ 10,000 UNITS/ML VIAL SQ SCH ×3 (05:36→21:19)
[2017-04-18 08:24] LABS: AUTOMATED NEUTROPHIL # 7.8 TH/MM3 (1.8-7.7); BASOPHIL % 0.1 % (0.0-2.0); EOSINOPHIL # 0.1 TH/MM3 (0-0.4); EOSINOPHIL % 0.7 % (0.0-4.0); HEMATOCRIT 32.9 % (35.0-46.0); HEMO FLAGS DIFF FINAL; LYMPH % 7.6 % (9.0-44.0); LYMPHOCYTE # 0.7 TH/MM3 (1.0-4.8); MEAN CELL VOLUME 94.6 FL (80.0-100.0); MEAN CORPUSCULAR HEMOGLOBIN 32.1 PG (27.0-34.0); MEAN CORPUSCULAR HGB CONC 33.9 % (32.0-36.0); MONO % 8.5 % (0.0-8.0); NEUT % 83.1 % (16.0-70.0); PLATELET COUNT 157 TH/MM3 (150-450); RED BLOOD COUNT 3.48 MIL/MM3 (4.00-5.30); RED CELL DISTRIBUTION WIDTH 16.2 % (11.6-17.2); WHITE BLOOD COUNT 9.4 TH/MM3 (4.0-11.0)
[2017-04-18 08:50] LABS: ALT (GPT) 38 U/L (10-53); ANION GAP 10 MEQ/L (5-15); AST (GOT) 36 U/L (15-37); BLOOD UREA NITROGEN 36 MG/DL (7-18); CHLORIDE 112 MEQ/L (98-107); GLOMERULAR FILTRATION RATE 39 ML/MIN (>89); MAGNESIUM 1.8 MG/DL (1.5-2.5); SODIUM (NA) 143 MEQ/L (136-145)
[2017-04-18 08:53] LABS: ALKALINE PHOSPHATASE 108 U/L (45-117); TOTAL BILIRUBIN ADULT 0.6 MG/DL (0.2-1.0)
[2017-04-18] MEDS: SODIUM CHLORIDE 0.9% FLUSH 10 ML FLUSH IV FLUSH SCH ×2 (09:00→20:35)
--- NOTE | 2017-04-18 09:05 | PD.CARD.PN ---
Subjective Subjective Remarks NO COMPLAINTS OF CHEST PAIN OR SOB TELEMETRY SHOWS SINUS RHYTHM HAVING BOWEL MOVEMENTS Objective Medications Current Medications Medications (Trade) Dose Ordered Sig/Allie Route Start Time Stop Time Status Last Admin (Zofran Inj) 4 mg Q6H PRN IV PUSH 04/12/17 17:45 04/14/17 05:33 (Tenormin) 50 mg DAILY PO 04/13/17 09:15 Future Hold (Cozaar) 50 mg DAILY PO 04/14/17 09:00 Future Hold (Ecotrin Ec) 81 mg DAILY PO 04/14/17 09:00 04/17/17 09:47 (Xanax) 0.25 mg Q8H PRN PO 04/14/17 09:15 04/17/17 01:36 (Toradol Inj) 15 mg Q6H PRN IV PUSH 04/14/17 05:00 04/19/17 04:59 Future Hold 04/14/17 05:33 Piperacillin Sod/ Tazobactam Sod 50 ml @ 200 mls/hr Q6H IV 04/14/17 06:00 04/18/17 05:32 (Heparin Inj) 5,000 units Q8HR SQ 04/14/17 14:00 04/18/17 05:36 (Protonix Inj) 40 mg Q24H IV PUSH 04/14/17 09:00 04/17/17 09:48 Pharmacy Profile Note 0 ml @ 0 mls/hr UNSCH OTHER 04/15/17 10:45 (NS Flush) 2 ml UNSCH PRN IV FLUSH 04/15/17 10:45 (NS Flush) 2 ml BID IV FLUSH 04/15/17 10:45 04/17/17 21:07 (Tylenol) 650 mg Q6H PRN PO 04/15/17 10:45 (Narcan Inj) 0.4 mg UNSCH PRN IV 04/15/17 10:45 (Miranda-Colace) 1 tab BID PO 04/15/17 21:00 04/17/17 09:47 (Milk Of Magnesia Liq) 30 ml Q12H PRN PO 04/15/17 10:45 (Senokot) 17.2 mg Q12H PRN PO 04/15/17 10:45 (Dulcolax Supp) 10 mg DAILY PRN RECTAL 04/15/17 10:45 ([place] 5-325 Mg) 1 tab Q6H PRN PO 04/15/17 19:30 04/18/17 05:32 (Lipitor) 10 mg MoWeFr@0900 PO 04/16/17 09:30 04/16/17 10:07 (Miralax) 17 gm DAILY PRN PO 04/16/17 09:45 04/16/17 13:54 (Lopressor) 25 mg BID PO 04/16/17 21:00 04/17/17 21:04 Vital Signs / I&O Vital Signs Date Time Temp Pulse Resp B/P (MAP) Pulse Ox O2 Delivery O2 Flow Rate FiO2 04/18/17 07:30 98.0 93 16 156/88 (110) 94 04/18/17 06:00 84 04/18/17 05:00 98 04/18/17 04:00 91 04/18/17 03:08 97 Room Air 04/18/17 03:07 98.1 75 18 158/87 (110) 96 04/18/17 03:00 84 04/18/17 02:00 84 04/18/17 01:00 80 04/18/17 01:00 97.6 80 18 154/85 (108) 96 04/18/17 00:52 168/90 (116) 04/18/17 00:00 106 04/17/17 23:50 180/102 (128) 04/17/17 23:46 95 Room Air 04/17/17 23:00 88 04/17/17 22:00 82 04/17/17 22:00 175/93 (120) 04/17/17 21:04 161/106 (124) 04/17/17 21:00 80 04/17/17 20:00 89 04/17/17 20:00 96 Room Air 04/17/17 20:00 97.8 89 18 161/88 (112) 96 04/17/17 19:00 80 04/17/17 18:12 80 04/17/17 18:01 16 04/17/17 17:09 100 04/17/17 16:08 86 04/17/17 15:28 95 04/17/17 15:28 97.9 81 16 163/84 (110) 96 04/17/17 15:28 96 Room Air 04/17/17 14:01 95 04/17/17 13:43 76 04/17/17 12:14 80 04/17/17 11:45 94 04/17/17 11:30 96 Room Air 04/17/17 11:30 97.9 81 16 163/84 (110) 96 04/17/17 10:00 82 04/17/17 09:00 82 I/O 04/17/17 04/17/17 04/17/17 04/18/17 04/18/17 04/18/17 07:00 15:00 23:00 07:00 15:00 23:00 Intake Total 630 ml 480 ml 589 ml Output Total 800 ml 400 ml Balance -170 ml 480 ml 189 ml Intake Oral 480 ml 480 ml 480 ml IV Total 150 ml 109 ml Output Urine Total 800 ml 400 ml # Voids 4 # Bowel Movements 0 4 2 Physical Exam NAD ANICTERIC, VILMA FLAT JVD LUNGS CLEAR RRR, 1-2/6 LLSB ABD SOFT EXTR WITHOUT EDEMA Laboratory Laboratory Tests Test 04/17/17 20:23 04/18/17 06:25 White Blood Count 9.5 TH/MM3 9.4 TH/MM3 Red Blood Count 3.66 MIL/MM3 3.48 MIL/MM3 Hemoglobin 11.4 GM/DL 11.2 GM/DL Hematocrit 34.2 % 32.9 % Mean Corpuscular Volume 93.3 FL 94.6 FL Mean Corpuscular Hemoglobin 31.2 PG 32.1 PG Mean Corpuscular Hemoglobin Concent 33.4 % 33.9 % Red Cell Distribution Width 16.1 % 16.2 % Platelet Count 172 TH/MM3 157 TH/MM3 Mean Platelet Volume 7.4 FL 8.1 FL Neutrophils (%) (Auto) 83.0 % 83.1 % Lymphocytes (%) (Auto) 7.5 % 7.6 % Monocytes (%) (Auto) 8.8 % 8.5 % Eosinophils (%) (Auto) 0.6 % 0.7 % Basophils (%) (Auto) 0.1 % 0.1 % Neutrophils # (Auto) 7.9 TH/MM3 7.8 TH/MM3 Lymphocytes # (Auto) 0.7 TH/MM3 0.7 TH/MM3 Monocytes # (Auto) 0.8 TH/MM3 0.8 TH/MM3 Eosinophils # (Auto) 0.1 TH/MM3 0.1 TH/MM3 Basophils # (Auto) 0.0 TH/MM3 0.0 TH/MM3 CBC Comment AUTO DIFF DIFF FINAL Differential Total Cells Counted 100 Neutrophils % (Manual) 69 % Band Neutrophils % 13 % Lymphocytes % 12 % Monocytes % 5 % Neutrophils # (Manual) 7.9 TH/MM3 Myelocytes 1 % Differential Comment FINAL DIFF MANUAL Toxic Granulation 1+ Platelet Estimate LOW Platelet Morphology Comment NORMAL Blood Urea Nitrogen 39 MG/DL 36 MG/DL Creatinine 1.38 MG/DL 1.33 MG/DL Random Glucose 138 MG/DL 123 MG/DL Total Protein 5.6 GM/DL 5.6 GM/DL Albumin 1.6 GM/DL 1.6 GM/DL Calcium Level 8.1 MG/DL 8.1 MG/DL Phosphorus Level 1.5 MG/DL 1.2 MG/DL Magnesium Level 1.9 MG/DL 1.8 MG/DL Alkaline Phosphatase 109 U/L 108 U/L Aspartate Amino Transf (AST/SGOT) 42 U/L 36 U/L Alanine Aminotransferase (ALT/SGPT) 40 U/L 38 U/L Total Bilirubin 0.6 MG/DL 0.6 MG/DL Sodium Level 141 MEQ/L 143 MEQ/L Potassium Level 3.1 MEQ/L 3.0 MEQ/L Chloride Level 112 MEQ/L 112 MEQ/L Carbon Dioxide Level 20.6 MEQ/L 21.0 MEQ/L Anion Gap 8 MEQ/L 10 MEQ/L Estimat Glomerular Filtration Rate 37 ML/MIN 39 ML/MIN Random Vancomycin Level 12.7 COMMENT Assessment and Plan Assessment and Plan PAROXYSMAL ATRIAL FIBRILLATION, BACK IN SINUS RHYTHM ASHD, NO ANGINA OR CHF HTN, REMAINS HIGH RISK [id number] SCORE, 7PTS PLAN: INCREASE METOPROLOL 50 MG BID ADD CARDIZEM 30 MG Q6HRS RELUCTANT TO START ANTICOAGULATION 2/2 HIGH RISK FOR FALLS AND HISTORY OF BRAIN ANEURYSM Jose Carlos Kent MD Apr 18, 2017 09:05
[2017-04-18] MEDS ORDERED: POTASSIUM PHOSPHATE INJ 30 MMOL in SODIUM CHLOR 0.9% 250 ML INJ 250 ML IV ONE ×2 (09:15→11:15)
--- NOTE | 2017-04-18 09:17 | HHI.PR ---
Subjective Remarks Patient was admitted to colorectal surgery service on April 12, 2017. Patient reported that on that particular day, she was having severe left lower quadrant abdominal pain which came on suddenly. Denies any associated nausea/vomiting/diarrhea. She reports that the pain was so severe and this was the main reason why she came to hospital. Denies any fever. Denies any vomiting/diarrhea. Patient denies any associated chest pain/palpitations/dizziness/syncopal episodes. Denies having any blood in her stool or in her urine. Denies coughing out blood. Denies fever. Patient and nursing staff reported the patient was receiving pain medications Dilaudid 0.3 mg almost every 2 hours for her abdominal pain while in hospital. She initially has elevated blood pressures around systolic of 140 to 170s. However by the evening shift, her blood pressure was dropping to as low as 60s over 40s. She was given normal saline bolus of 250 cc after which blood pressure crop picker to 103 systolic. She was also having associated tachycardia. Patient does report of history of hypertension for which she takes antihypertensives at home. She has not received any of these medications while in hospital to explain her hypotension. She reports of history of tachycardia. She is not on any blood thinners at home. 9-7 called to see patient patient noted to be in A. fib with RVR will give Cardizem IV and placed on Cardizem drip and transferred to the ICU Consult cardiology. Will get a cardiac echo. We will trend troponins and cardiac enzymes We'll get an ABG Discussed with Dr. 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 CONTROLLED STILL ON CARDIZEM DRIP SEEN BY CARDIOLOGY AND INFECTIOUS DISEASE COMPLAINS OF PAIN ALL OVER TOLERATING DIET SO FAR AM LABS CHIP CARDIO AND RN AND PATIENT 9-9 DENIES ANY ABDOMINAL PAIN AT THIS MOMENT DIET ADVANCED BY SURGERY MONITOR BLOOD PRESSURES AM LABS WATCH RENAL FUNCTIONS DW RN AND PT 9-10 TOLERATING A DIET HAD LOTS OF DIARRHEA YESTERDAY NOW HAS HYPOKALEMIA AND HYPOMAGNESIA TOLERATING A DIET ADD LACTINEX Objective Vitals Vital Signs Date Time Temp Pulse Resp B/P (MAP) Pulse Ox O2 Delivery O2 Flow Rate FiO2 04/18/17 07:30 98.0 93 16 156/88 (110) 94 04/18/17 06:00 84 04/18/17 05:00 98 04/18/17 04:00 91 04/18/17 03:08 97 Room Air 04/18/17 03:07 98.1 75 18 158/87 (110) 96 04/18/17 03:00 84 04/18/17 02:00 84 04/18/17 01:00 80 04/18/17 01:00 97.6 80 18 154/85 (108) 96 04/18/17 00:52 168/90 (116) 04/18/17 00:00 106 04/17/17 23:50 180/102 (128) 04/17/17 23:46 95 Room Air 04/17/17 23:00 88 04/17/17 22:00 82 04/17/17 22:00 175/93 (120) 04/17/17 21:04 161/106 (124) 04/17/17 21:00 80 04/17/17 20:00 89 04/17/17 20:00 96 Room Air 04/17/17 20:00 97.8 89 18 161/88 (112) 96 04/17/17 19:00 80 04/17/17 18:12 80 04/17/17 18:01 16 04/17/17 17:09 100 04/17/17 16:08 86 04/17/17 15:28 95 04/17/17 15:28 97.9 81 16 163/84 (110) 96 04/17/17 15:28 96 Room Air 04/17/17 14:01 95 04/17/17 13:43 76 04/17/17 12:14 80 04/17/17 11:45 94 04/17/17 11:30 96 Room Air 04/17/17 11:30 97.9 81 16 163/84 (110) 96 04/17/17 10:00 82 I/O 04/17/17 04/17/17 04/17/17 04/18/17 04/18/17 04/18/17 07:00 15:00 23:00 07:00 15:00 23:00 Intake Total 630 ml 480 ml 589 ml Output Total 800 ml 400 ml Balance -170 ml 480 ml 189 ml Intake Oral 480 ml 480 ml 480 ml IV Total 150 ml 109 ml Output Urine Total 800 ml 400 ml # Voids 4 # Bowel Movements 0 4 2 Result Diagram: 04/18/17 0625 04/18/17 0625 Other Results Laboratory Tests Test 04/15/17 10:29 04/15/17 10:40 04/15/17 22:59 04/16/17 06:50 Blood Gas Puncture Site RT RADIAL Blood Gas Patient Temperature 98.6 Blood Gas HCO3 17 mmol/L Blood Gas Base Excess -9.3 mmol/L Blood Gas Oxygen Saturation 95 % Arterial Blood pH 7.26 Arterial Blood Partial Pressure CO2 39 mmHg Arterial Blood Partial Pressure O2 90 mmHg Arterial Blood Oxygen Content 23.6 Vol % Arterial Blood Carboxyhemoglobin 1.1 % Arterial Blood Methemoglobin 0.5 % Blood Gas Hemoglobin 17.7 G/DL Oxygen Delivery Device NASAL CANNULA Blood Gas Liter Flow 2 L/M Lactic Acid Level 1.3 mmol/L Total Creatine Kinase 251 U/L 183 U/L 84 U/L Creatine Kinase MB 13.7 NG/ML 7.6 NG/ML Creatine Kinase MB % 5.5 % Troponin I LESS THAN 0.02 NG/ML LESS THAN 0.02 NG/ML LESS THAN 0.02 NG/ML White Blood Count 11.1 TH/MM3 Red Blood Count 3.66 MIL/MM3 Hemoglobin 11.5 GM/DL Hematocrit 35.2 % Mean Corpuscular Volume 96.2 FL Mean Corpuscular Hemoglobin 31.5 PG Mean Corpuscular Hemoglobin Concent 32.8 % Red Cell Distribution Width 16.3 % Platelet Count 166 TH/MM3 Mean Platelet Volume 8.2 FL Neutrophils (%) (Auto) 91.0 % Lymphocytes (%) (Auto) 3.7 % Monocytes (%) (Auto) 4.9 % Eosinophils (%) (Auto) 0.3 % Basophils (%) (Auto) 0.1 % Neutrophils # (Auto) 10.1 TH/MM3 Lymphocytes # (Auto) 0.4 TH/MM3 Monocytes # (Auto) 0.5 TH/MM3 Eosinophils # (Auto) 0.0 TH/MM3 Basophils # (Auto) 0.0 TH/MM3 CBC Comment AUTO DIFF Differential Total Cells Counted 100 Neutrophils % (Manual) 74 % Band Neutrophils % 20 % Lymphocytes % 1 % Monocytes % 5 % Neutrophils # (Manual) 10.4 TH/MM3 Nucleated Red Blood Cells 1 /100 WBC Differential Comment FINAL DIFF MANUAL Platelet Estimate NORMAL Platelet Morphology Comment NORMAL Red Cell Morphology Comment NORMAL Blood Urea Nitrogen 38 MG/DL Creatinine 1.54 MG/DL Random Glucose 88 MG/DL Total Protein 5.9 GM/DL Albumin 1.6 GM/DL Calcium Level 8.3 MG/DL Phosphorus Level 2.6 MG/DL Magnesium Level 1.9 MG/DL Alkaline Phosphatase 71 U/L Aspartate Amino Transf (AST/SGOT) 41 U/L Alanine Aminotransferase (ALT/SGPT) 33 U/L Total Bilirubin 0.4 MG/DL Sodium Level 142 MEQ/L Potassium Level 3.7 MEQ/L Chloride Level 113 MEQ/L Carbon Dioxide Level 19.3 MEQ/L Anion Gap 10 MEQ/L Estimat Glomerular Filtration Rate 33 ML/MIN Random Vancomycin Level 14.0 COMMENT Test 04/17/17 20:23 04/18/17 06:25 White Blood Count 9.5 TH/MM3 9.4 TH/MM3 Red Blood Count 3.66 MIL/MM3 3.48 MIL/MM3 Hemoglobin 11.4 GM/DL 11.2 GM/DL Hematocrit 34.2 % 32.9 % Mean Corpuscular Volume 93.3 FL 94.6 FL Mean Corpuscular Hemoglobin 31.2 PG 32.1 PG Mean Corpuscular Hemoglobin Concent 33.4 % 33.9 % Red Cell Distribution Width 16.1 % 16.2 % Platelet Count 172 TH/MM3 157 TH/MM3 Mean Platelet Volume 7.4 FL 8.1 FL Neutrophils (%) (Auto) 83.0 % 83.1 % Lymphocytes (%) (Auto) 7.5 % 7.6 % Monocytes (%) (Auto) 8.8 % 8.5 % Eosinophils (%) (Auto) 0.6 % 0.7 % Basophils (%) (Auto) 0.1 % 0.1 % Neutrophils # (Auto) 7.9 TH/MM3 7.8 TH/MM3 Lymphocytes # (Auto) 0.7 TH/MM3 0.7 TH/MM3 Monocytes # (Auto) 0.8 TH/MM3 0.8 TH/MM3 Eosinophils # (Auto) 0.1 TH/MM3 0.1 TH/MM3 Basophils # (Auto) 0.0 TH/MM3 0.0 TH/MM3 CBC Comment AUTO DIFF DIFF FINAL Differential Total Cells Counted 100 Neutrophils % (Manual) 69 % Band Neutrophils % 13 % Lymphocytes % 12 % Monocytes % 5 % Neutrophils # (Manual) 7.9 TH/MM3 Myelocytes 1 % Differential Comment FINAL DIFF MANUAL Toxic Granulation 1+ Platelet Estimate LOW Platelet Morphology Comment NORMAL Blood Urea Nitrogen 39 MG/DL 36 MG/DL Creatinine 1.38 MG/DL 1.33 MG/DL Random Glucose 138 MG/DL 123 MG/DL Total Protein 5.6 GM/DL 5.6 GM/DL Albumin 1.6 GM/DL 1.6 GM/DL Calcium Level 8.1 MG/DL 8.1 MG/DL Phosphorus Level 1.5 MG/DL 1.2 MG/DL Magnesium Level 1.9 MG/DL 1.8 MG/DL Alkaline Phosphatase 109 U/L 108 U/L Aspartate Amino Transf (AST/SGOT) 42 U/L 36 U/L Alanine Aminotransferase (ALT/SGPT) 40 U/L 38 U/L Total Bilirubin 0.6 MG/DL 0.6 MG/DL Sodium Level 141 MEQ/L 143 MEQ/L Potassium Level 3.1 MEQ/L 3.0 MEQ/L Chloride Level 112 MEQ/L 112 MEQ/L Carbon Dioxide Level 20.6 MEQ/L 21.0 MEQ/L Anion Gap 8 MEQ/L 10 MEQ/L Estimat Glomerular Filtration Rate 37 ML/MIN 39 ML/MIN Random Vancomycin Level 12.7 COMMENT Imaging Last Impressions Consultation 04/14/17 1534 Signed Impressions: Service Date/Time: Friday, April 14, 2017 15:34 - CONCLUSION: 1. Drainage performed secondary to an inadequate volume Gabriel Taylor MD Abdomen/Pelvis CT 04/12/17 0000 Signed Impressions: Service Date/Time: Wednesday, April 12, 2017 12:43 - CONCLUSION: 1. Descending colonic diverticulitis with abscess formation and a few scattered foci of free air and fluid characteristic of perforation. 2. Severe sigmoid diverticulosis. 3. Atherosclerosis. Nakul Rosas MD Objective Remarks GENERAL: Awake and alert but in atrial fibrillation NOW CONTROLLED appears to be in MILD distress- LESS lethargic at this time SKIN: Warm and dry. HEAD: Atraumatic. Normocephalic. EYES: Pupils equal and round. No scleral icterus. No injection or drainage. Extraocular muscles intact ENT: No nasal bleeding or discharge. Mucous membranes pink and moist. Oral mucosa is moist tongue is midline NECK: Trachea midline. No JVD. Supple CARDIOVASCULAR: IRRegular rate and rhythm. In A. fib S1-S2 no S3 or S4 no heave or thrill or rub RESPIRATORY: No accessory muscle use. Clear to auscultation. Breath sounds equal bilaterally. GASTROINTESTINAL: Abdomen soft but LESS tender left quadrant nondistended. Hepatic and splenic margins not palpable. NO rebound MUSCULOSKELETAL: Extremities without clubbing, cyanosis, or edema. No obvious deformities. NEUROLOGICAL: Awake and alert. No obvious cranial nerve deficits. Motor grossly within normal limits. Five out of 5 muscle strength in the arms and legs. Normal speech. PSYCHIATRIC: Appropriate mood and affect; insight and judgment normal. Procedures NONE Medications and IVs Current Medications Morphine Sulfate (Morphine Inj) 4 mg ONCE ONCE IV PUSH Last administered on 12:00; Start 04/12/17 at 11:45; Stop 04/12/17 at 11:46; Status DC Ondansetron HCl (Zofran Inj) 4 mg ONCE ONCE IVP Last administered on 04/12/17 11:59; Start 04/12/17 at 11:45; Stop 04/12/17 at 11:46; Status DC Sodium Chloride (NS Flush) 2 ml UNSCH PRN IV FLUSH FLUSH AFTER USING IV ACCESS Last administered on 04/12/17 12:00; Start 04/12/17 at 11:45; Stop 04/15/17 at 11: 20; Status DC Hydromorphone HCl (Dilaudid Pf Inj) 0.5 mg ONCE ONCE IVS Last administered on 04/12/17 13:18; Start 04/12/17 at 13:15; Stop 04/12/17 at 13:16; Status DC Metronidazole 100 ml @ 100 mls/hr ONCE ONCE IV Last administered on 04/12/17 13:18; Start 04/12/17 at 13:15; Stop 04/13/17 at 09:11; Status DC Ceftazidime 2000 mg/Sodium Chloride 100 ml @ 200 mls/hr ONCE ONCE IV Last administered on 04/12/17 14:15; Start 04/12/17 at 13:15; Stop 04/12/17 at 13:44; Status DC Hydromorphone HCl (Dilaudid Pf Inj) 0.5 mg ONCE ONCE IV PUSH Last administered on 04/12/17 15:43; Start 04/12/17 at 15:45; Stop 04/12/17 at 15:46; Status DC Sodium Chloride 1,000 ml @ 2,000 mls/hr Q30M ONCE IV Last administered on 15:42; Start 04/12/17 at 15:45; Stop 04/12/17 at 16:14; Status DC Morphine Sulfate (Morphine Inj) 1 mg Q3H PRN IV PAIN 1-10 Last administered on 04/12/17 17:36; Start 04/12/17 at 17:45; Stop 04/12/17 at 19:28; Status DC Ondansetron HCl (Zofran Inj) 4 mg Q6H PRN IV PUSH NAUSEA Last administered on 05:33; Start 04/12/17 at 17:45 Dextrose/Sodium Chloride 1,000 ml @ 150 mls/hr Q6H40M IV Last administered on 04/15/17 08:37; Start 04/12/17 at 18:00; Stop 04/15/17 at 11:23; Status DC Ceftazidime 2000 mg/Sodium Chloride 100 ml @ 200 mls/hr Q8H IV Last administered on 04/13/17 19:52; Start 04/12/17 at 22:00; Stop 04/14/17 at 05:03; Status DC Hydromorphone HCl (Dilaudid Pf Inj) 0.3 mg Q3H PRN IV PAIN 1-10 Last administered on 04/13/17 11:35; Start 04/12/17 at 20:00; Stop 04/13/17 at 12:49; Status DC Alprazolam (Xanax) 0.5 mg Q8H PRN PO ANXIETY Last administered on 04/13/17 19: 52; Start 04/13/17 at 09:15; Stop 04/14/17 at 04:57; Status DC Aspirin (Ecotrin Ec) 81 mg BID PO ; Start 04/13/17 at 09:15; Stop 04/13/17 at 12: 48; Status DC Atenolol (Tenormin) 50 mg DAILY PO ; Start 04/13/17 at 09:15; Status Future Hold Guanfacine HCl (Tenex) 1 mg HS PO Last administered on 04/13/17 19:52; Start at 21:00; Stop 04/14/17 at 03:03; Status DC Triamterene/HCTZ (Maxzide 37.5-25 Mg) 1 tab EVERY OTHER DAY PO ; Start 04/15/17 at 09:00; Stop 04/15/17 at 09:00; Status DC Losartan Potassium (Cozaar) 50 mg DAILY PO ; Start 04/14/17 at 09:00; Status Future Hold Aspirin (Ecotrin Ec) 81 mg DAILY PO Last administered on 04/17/17 09:47; Start 04/14/17 at 09:00 Hydromorphone HCl (Dilaudid Pf Inj) 0.3 mg Q2H PRN IV PAIN 1-10 Last administered on 04/13/17 22:01; Start 04/13/17 at 13:00; Stop 04/14/17 at 06:21; Status DC Sodium Chloride 250 ml @ 250 mls/hr UNSCH X1 IV Last administered on 03:26; Start 04/14/17 at 03:30; Stop 04/14/17 at 04:30; Status DC Alprazolam (Xanax) 0.25 mg Q8H PRN PO ANXIETY Last administered on 04/17/17 01: 36; Start 04/14/17 at 09:15 Ketorolac Tromethamine (Toradol Inj) 15 mg Q6H PRN IV PUSH pain >5 Last administered on 04/14/17 05:33; Start 04/14/17 at 05:00; Stop 04/19/17 at 04:59; Status Future Hold Piperacillin Sod/ Tazobactam Sod 100 ml @ 200 mls/hr Q6H IV ; Start 04/14/17 at 06:00; Stop 04/14/17 at 06:00; Status DC Sodium Chloride 500 ml @ 500 mls/hr BOLUS ONCE IV Last administered on 05:33; Start 04/14/17 at 05:15; Stop 04/14/17 at 06:14; Status DC Piperacillin Sod/ Tazobactam Sod 50 ml @ 200 mls/hr Q6H IV Last administered on 04/18/17 05:32; Start 04/14/17 at 06:00 Heparin Sodium (Porcine) (Heparin Inj) 5,000 units Q8HR SQ Last administered on 04/18/17 05:36; Start 04/14/17 at 14:00 Pantoprazole Sodium (Protonix Inj) 40 mg Q24H IV PUSH Last administered on 09:48; Start 04/14/17 at 09:00 Acetaminophen/ Hydrocodone Bitart (Towner 5-325 Mg) 1 tab Q6H PRN PO pain 1-10 Last administered on 04/15/17 02:38; Start 04/14/17 at 08:30; Stop 04/15/17 at 11: 23; Status DC Atenolol (Tenormin) 50 mg STAT ONCE PO Last administered on 04/15/17 07:21; Start 04/15/17 at 07:30; Stop 04/15/17 at 07:31; Status DC Diltiazem HCl (Cardizem Inj) 20 mg ONCE ONCE IV PUSH Last administered on 10:44; Start 04/15/17 at 10:30; Stop 04/15/17 at 10:31; Status DC Diltiazem HCl 125 mg/Sodium Chloride 125 ml @ 5 mls/hr TITRATE PRN IV Tachycardia; Start 04/15/17 at 10:30; Stop 04/17/17 at 17:44; Status DC Sodium Chloride 1,000 ml @ 999 mls/hr BOLUS ONCE IV Last administered on 10:45; Start 04/15/17 at 10:45; Stop 04/15/17 at 11:45; Status DC Sodium Chloride 1,000 ml @ 150 mls/hr Q6H40M IV Last administered on 04/16/17 03:54; Start 04/15/17 at 11:00; Stop 04/17/17 at 08:08; Status DC Vancomycin HCl 1250 mg/Sodium Chloride 262.5 ml @ 262.5 mls/ hr ONCE ONCE IV ; Start 04/15/17 at 10:45; Stop 04/15/17 at 11:44; Status UNV Pharmacy Profile Note 0 ml @ 0 mls/hr UNSCH OTHER ; Start 04/15/17 at 10:45 Sodium Chloride (NS Flush) 2 ml UNSCH PRN IV FLUSH FLUSH AFTER USING IV ACCESS ; Start 04/15/17 at 10:45 Sodium Chloride (NS Flush) 2 ml BID IV FLUSH Last administered on 04/17/17 21: 07; Start 04/15/17 at 10:45 Acetaminophen (Tylenol) 650 mg Q6H PRN PO PAIN SCALE 1 TO 2; Start 04/15/17 at 10:45 Oxycodone/ Acetaminophen (Percocet 5-325 Mg) 1 tab Q6H PRN PO PAIN SCALE 3 TO 5; Start 04/15/17 at 10:45; Stop 04/15/17 at 19:28; Status DC Oxycodone/ Acetaminophen (Percocet 10-325 Mg) 1 tab Q6H PRN PO PAIN SCALE 6 TO 10; Start 04/15/17 at 10:45; Stop 04/15/17 at 19:28; Status DC Morphine Sulfate (Morphine Inj) 2 mg Q3H PRN IV Pain 3-5; if unable to take PO Last administered on 04/15/17 16:12; Start 04/15/17 at 10:45; Stop 04/15/17 at 19: 28; Status DC Morphine Sulfate (Morphine Inj) 4 mg Q3H PRN IV Pain 6-10;if unable to take PO ; Start 04/15/17 at 10:45; Stop 04/15/17 at 19:28; Status DC Naloxone HCl (Narcan Inj) 0.4 mg UNSCH PRN IV SEE LABEL COMMENTS; Start at 10:45 Senna/Docusate Sodium (Miranda-Colace) 1 tab BID PO Last administered on 04/17/17 09:47; Start 04/15/17 at 21:00 Magnesium Hydroxide (Milk Of Magnesia Liq) 30 ml Q12H PRN PO MILD - MODERATE CONSTIPATION; Start 04/15/17 at 10:45 Sennosides (Senokot) 17.2 mg Q12H PRN PO MODERATE - SEVERE CONSTIPATION; Start 04/15/17 at 10:45 Bisacodyl (Dulcolax Supp) 10 mg DAILY PRN RECTAL SEVERE CONSITIPATION; Start at 10:45 Lactulose (Lactulose Liq) 30 ml DAILY PRN PO SEVERE CONSITIPATION; Start at 10:45; Stop 04/15/17 at 11:51; Status DC Vancomycin HCl 1500 mg/Sodium Chloride 515 ml @ 250 mls/hr ONCE ONCE IV ; Start 04/15/17 at 14:00; Stop 04/15/17 at 16:03; Status DC Acetaminophen/ Hydrocodone Bitart (Towner 5-325 Mg) 1 tab Q6H PRN PO PAIN SCALE 5 TO 10 Last administered on 04/18/17 05:32; Start 04/15/17 at 19:30 Atorvastatin Calcium (Lipitor) 10 mg [id number] PO Last administered on 10:07; Start 04/16/17 at 09:30 Vancomycin HCl 1500 mg/Sodium Chloride 515 ml @ 257.5 mls/ hr ONCE ONCE IV Last administered on 04/16/17 13:00; Start 04/16/17 at 11:00; Stop 04/16/17 at 12: 59; Status DC Polyethylene Glycol (Miralax) 17 gm DAILY PRN PO no bowel movement Last administered on 04/16/17 13:54; Start 04/16/17 at 09:45 Metoprolol Tartrate (Lopressor) 25 mg BID PO Last administered on 04/17/17 21: 04; Start 04/16/17 at 21:00; Stop 04/18/17 at 09:03; Status DC Metoprolol Tartrate (Lopressor) 50 mg BID PO ; Start 04/18/17 at 09:00; Status UNV Diltiazem HCl (Cardizem) 30 mg Q6HR PO ; Start 04/18/17 at 12:00; Status UNV Urinary Catheter: No Vascular Central Line Catheter: No A/P Assessment and Plan Impression: A. fib with RVR-atenolol has been restarted. We'll need to get an Cardizem IV push 20 mg. And Cardizem drip and transferred to the ICU will consult cardiology and get an echocardiogram and trend troponins--IN [facility]U NOW-- WEAN OFF CARDIZEM DRIP Hypotension with reflex tachycardia- suspect volume Depletion. Also compounded by pain medicine as well.-Appears that patient has a history of what sounds like atrial fibrillation Rhabdomyolysis trending down Acute renal failure- secondary to dehydration possible early septic shock- AGGRESSIVE FLUID REHYDRATION Ruptured diverticula as well as with early abscess formation. No drainable fluid per IR. Procedure was canceled Leukocytosis with left shift and bandemia on antibiotics ZOSYN AND VANCO History of Hypertension CAD status post cardiac stents 2 TIA 2 Sinus tachycardia per patient Atrial fibrillation with RVR continue on Cardizem drip consult cardiology trend troponins echocardiogram- WEAN OFF CARDIZEM DRIP HYPOTENSION- GIVE IV FLUIDS NS BOLUS 1 LITER--IMPROVED- RESOLVED RENAL INSUFFICIENCY ABDOMINAL PAIN IMPROVING- DIET ADVANCED BY CRS HYPOMAG- REPLACE HYPOPHOS- REPLACE ADD LACTINEX FOR DIARRHEA Plan: Continue IV fluids--HEPLOCK IV Also continue maintenance IV fluids with normal saline at 1 50 cc per hour.-- HEPLOCK IV We will recheck labs in a.m. Adjust medications We'll switch antibiotics to Zosyn. Hold narcotics. Will manage pain will discontinue Toradol Use narcotics for pain control If the blood pressure permits, we can slowly and small dose pain medications. Patient is quite truly in pain. Restart atenolol continue on Cardizem drip- OF CARDIZEM DRIP Bladder scan to make sure the patient's acute renal failure is not from dehydration. We'll follow CPK, and renal function. If needed, would start patient on bicarbonate drip. We will follow patient along with you. DVT prophylaxiswith heparin. GI prophylaxis on pantoprazole. See orders A.m. labs Transferred to ICU for close monitoring and Cardizem drip-- OUT OF ICU- OFF CARDIZEM DRIP CHIP BRANDON AND PT Gagan Johnson DO Apr 18, 2017 09:17
[2017-04-18] MEDS: PANTOPRAZOLE SODIUM 40 MG VIAL IV PUSH SCH (09:41)
[2017-04-18] MEDS: ASPIRIN EC 81 MG TABEC PO SCH (09:41)
[2017-04-18] MEDS: MAGNESIUM SULFATE 1 GM PREMIX 100 ML IV SCH ×2 (09:45→10:55)
[2017-04-18] MEDS ORDERED: DOCUSATE SODIUM 50 MG/SENNA 8.6 MG TAB PO PRN (10:15)
[2017-04-18] MEDS: METOPROLOL TARTRATE 50 MG TAB PO SCH ×3 (10:55→20:35)
[2017-04-18] MEDS ORDERED: VANCOMYCIN 1,500 MG/NS 500 ML IV ONE ×2 (11:00)
[2017-04-18] MEDS ORDERED: SODIUM PHOSPHATE INJ 30 MMOL in SODIUM CHLOR 0.9% 250 ML INJ 250 ML IV ONE (11:00)
[2017-04-18] MEDS: DILTIAZEM HCL 30 MG TAB PO SCH ×2 (11:50→17:48)
[2017-04-18] MEDS: LACTOBACILLUS ACIDOPHILUS TAB PO SCH ×2 (11:51→17:43)
[2017-04-19] VITALS (27 sets, daily range): BP systolic 133–170; BP diastolic 79–96; PULSE 71–100; RESP 16; TEMP 97.3–98.7; O2SAT 94–99
[2017-04-19] MEDS: DILTIAZEM HCL 30 MG TAB PO SCH ×4 (00:05→17:01)
[2017-04-19] MEDS: PIPERACIL-TAZO 3.375 GM PREMIX 50 ML IV SCH ×4 (00:06→17:01)
[2017-04-19] MEDS: HEPARIN SODIUM - SQ 10,000 UNITS/ML VIAL SQ SCH ×3 (05:21→21:22)
[2017-04-19] MEDS: ACETAMINOPHEN/HYDROcodone 325 MG/5 MG TAB PO PRN ×4 (05:21→21:24)
[2017-04-19 05:54] LABS: AUTOMATED NEUTROPHIL # 10.3 TH/MM3 (1.8-7.7); EOSINOPHIL # 0.1 TH/MM3 (0-0.4); EOSINOPHIL % 0.7 % (0.0-4.0); HEMO FLAGS DIFF FINAL; LYMPH % 8.7 % (9.0-44.0); LYMPHOCYTE # 1.1 TH/MM3 (1.0-4.8); MEAN CELL VOLUME 92.8 FL (80.0-100.0); MEAN CORPUSCULAR HEMOGLOBIN 30.6 PG (27.0-34.0); MONO % 9.3 % (0.0-8.0); NEUT % 81.3 % (16.0-70.0); PLATELET COUNT 178 TH/MM3 (150-450); RED BLOOD COUNT 3.77 MIL/MM3 (4.00-5.30); RED CELL DISTRIBUTION WIDTH 15.9 % (11.6-17.2); WHITE BLOOD COUNT 12.7 TH/MM3 (4.0-11.0)
[2017-04-19 06:29] LABS: ALKALINE PHOSPHATASE 116 U/L (45-117); ALT (GPT) 37 U/L (10-53); ANION GAP 12 MEQ/L (5-15); AST (GOT) 37 U/L (15-37); BICARBONATE 19.7 MEQ/L (21.0-32.0); BLOOD UREA NITROGEN 25 MG/DL (7-18); CHLORIDE 107 MEQ/L (98-107); GLOMERULAR FILTRATION RATE 48 ML/MIN (>89); POTASSIUM 3.1 MEQ/L (3.5-5.1); SODIUM (NA) 139 MEQ/L (136-145); TOTAL BILIRUBIN ADULT 0.6 MG/DL (0.2-1.0)
[2017-04-19] MEDS: ASPIRIN EC 81 MG TABEC PO SCH (08:19)
[2017-04-19] MEDS: METOPROLOL TARTRATE 50 MG TAB PO SCH ×2 (08:19→21:22)
[2017-04-19] MEDS: LACTOBACILLUS ACIDOPHILUS TAB PO SCH ×3 (08:19→17:01)
[2017-04-19] MEDS: ATORVASTATIN 10 MG TAB PO SCH (08:26)
[2017-04-19] MEDS: ACETAMINOPHEN 325 MG TAB PO PRN (08:26)
[2017-04-19] MEDS: PANTOPRAZOLE SODIUM 40 MG VIAL IV PUSH SCH (08:27)
[2017-04-19] MEDS: SODIUM CHLORIDE 0.9% FLUSH 10 ML FLUSH IV FLUSH SCH ×2 (08:27→21:23)
--- NOTE | 2017-04-19 09:45 | HHI.PR ---
Subjective Remarks Patient was admitted to colorectal surgery service on April 12, 2017. Patient reported that on that particular day, she was having severe left lower quadrant abdominal pain which came on suddenly. Denies any associated nausea/vomiting/diarrhea. She reports that the pain was so severe and this was the main reason why she came to hospital. Denies any fever. Denies any vomiting/diarrhea. Patient denies any associated chest pain/palpitations/dizziness/syncopal episodes. Denies having any blood in her stool or in her urine. Denies coughing out blood. Denies fever. Patient and nursing staff reported the patient was receiving pain medications Dilaudid 0.3 mg almost every 2 hours for her abdominal pain while in hospital. She initially has elevated blood pressures around systolic of 140 to 170s. However by the evening shift, her blood pressure was dropping to as low as 60s over 40s. 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 She was also having associated tachycardia. Patient does report of history of hypertension for which she takes antihypertensives at home. She has not received any of these medications while in hospital to explain her hypotension. She reports of history of tachycardia. She is not on any blood thinners at home. 9-7 called to see patient patient noted to be in A. fib with RVR will give Cardizem IV and placed on Cardizem drip and transferred to the ICU Consult cardiology. Will get a cardiac echo. We will trend troponins and cardiac enzymes We'll get an ABG Discussed with Dr. 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 CONTROLLED STILL ON CARDIZEM DRIP SEEN BY CARDIOLOGY AND INFECTIOUS DISEASE COMPLAINS OF PAIN ALL OVER TOLERATING DIET SO FAR AM LABS DW CARDIO AND RN AND PATIENT 9-9 DENIES ANY ABDOMINAL PAIN AT THIS MOMENT DIET ADVANCED BY SURGERY MONITOR BLOOD PRESSURES AM LABS WATCH RENAL FUNCTIONS DW RN AND PT 9-10 TOLERATING A DIET HAD LOTS OF DIARRHEA YESTERDAY NOW HAS HYPOKALEMIA AND HYPOMAGNESIA TOLERATING A DIET ADD LACTINEX - REPLACE POTASSIUM ORALLY AM LABS MEDS ADJUSTED HEART RATE CONTROLLED DW RN AND PT Objective Vitals Vital Signs Date Time Temp Pulse Resp B/P (MAP) Pulse Ox O2 Delivery O2 Flow Rate FiO2 04/19/17 09:36 18 04/19/17 07:30 98.7 84 16 133/81 (98) 95 04/19/17 06:49 18 04/19/17 06:05 82 04/19/17 06:00 82 04/19/17 05:00 80 04/19/17 04:00 100 04/19/17 03:47 98.4 89 16 161/92 (115) 95 04/19/17 03:17 95 Room Air 04/19/17 03:00 90 04/19/17 02:00 78 04/19/17 01:00 74 04/19/17 00:54 98.3 94 16 166/94 (118) 94 04/19/17 00:00 94 04/18/17 23:32 98 Room Air 04/18/17 23:00 74 04/18/17 22:00 76 04/18/17 21:00 78 04/18/17 20:32 98.3 94 16 151/89 (109) 98 04/18/17 20:00 92 04/18/17 19:35 97 Room Air 04/18/17 19:00 88 04/18/17 18:16 88 04/18/17 17:18 95 04/18/17 16:02 79 04/18/17 15:29 80 04/18/17 15:29 98.0 84 16 157/89 (111) 94 04/18/17 15:29 96 Room Air 04/18/17 14:11 77 04/18/17 13:41 166/91 (116) 04/18/17 13:04 77 04/18/17 12:47 77 04/18/17 11:30 97.4 83 16 167/93 (117) 94 04/18/17 11:30 98 Room Air 04/18/17 11:30 78 04/18/17 10:00 80 I/O 04/18/17 04/18/17 04/18/17 04/19/17 04/19/17 04/19/17 07:00 15:00 23:00 07:00 15:00 23:00 Intake Total 589 ml 1330 ml 480 ml Output Total 400 ml 400 ml 2 ml Balance 189 ml 930 ml 478 ml Intake Oral 480 ml 480 ml 480 ml IV Total 109 ml 850 ml Output Urine Total 400 ml 400 ml Stool Total 2 ml # Voids 4 1 # Bowel Movements 2 4 Result Diagram: 04/19/17 0434 04/19/17 0439 Other Results Laboratory Tests Test 04/17/17 20:23 04/18/17 06:25 04/19/17 04:34 04/19/17 04:39 White Blood Count 9.5 TH/MM3 9.4 TH/MM3 12.7 TH/MM3 Red Blood Count 3.66 MIL/MM3 3.48 MIL/MM3 3.77 MIL/MM3 Hemoglobin 11.4 GM/DL 11.2 GM/DL 11.6 GM/DL Hematocrit 34.2 % 32.9 % 35.0 % Mean Corpuscular Volume 93.3 FL 94.6 FL 92.8 FL Mean Corpuscular Hemoglobin 31.2 PG 32.1 PG 30.6 PG Mean Corpuscular Hemoglobin Concent 33.4 % 33.9 % 33.0 % Red Cell Distribution Width 16.1 % 16.2 % 15.9 % Platelet Count 172 TH/MM3 157 TH/MM3 178 TH/MM3 Mean Platelet Volume 7.4 FL 8.1 FL 8.1 FL Neutrophils (%) (Auto) 83.0 % 83.1 % 81.3 % Lymphocytes (%) (Auto) 7.5 % 7.6 % 8.7 % Monocytes (%) (Auto) 8.8 % 8.5 % 9.3 % Eosinophils (%) (Auto) 0.6 % 0.7 % 0.7 % Basophils (%) (Auto) 0.1 % 0.1 % 0.0 % Neutrophils # (Auto) 7.9 TH/MM3 7.8 TH/MM3 10.3 TH/MM3 Lymphocytes # (Auto) 0.7 TH/MM3 0.7 TH/MM3 1.1 TH/MM3 Monocytes # (Auto) 0.8 TH/MM3 0.8 TH/MM3 1.2 TH/MM3 Eosinophils # (Auto) 0.1 TH/MM3 0.1 TH/MM3 0.1 TH/MM3 Basophils # (Auto) 0.0 TH/MM3 0.0 TH/MM3 0.0 TH/MM3 CBC Comment AUTO DIFF DIFF FINAL DIFF FINAL Differential Total Cells Counted 100 Neutrophils % (Manual) 69 % Band Neutrophils % 13 % Lymphocytes % 12 % Monocytes % 5 % Neutrophils # (Manual) 7.9 TH/MM3 Myelocytes 1 % Differential Comment FINAL DIFF MANUAL Toxic Granulation 1+ Platelet Estimate LOW Platelet Morphology Comment NORMAL Blood Urea Nitrogen 39 MG/DL 36 MG/DL 25 MG/DL Creatinine 1.38 MG/DL 1.33 MG/DL 1.10 MG/DL Random Glucose 138 MG/DL 123 MG/DL 108 MG/DL Total Protein 5.6 GM/DL 5.6 GM/DL 5.8 GM/DL Albumin 1.6 GM/DL 1.6 GM/DL 1.7 GM/DL Calcium Level 8.1 MG/DL 8.1 MG/DL 7.7 MG/DL Phosphorus Level 1.5 MG/DL 1.2 MG/DL 3.2 MG/DL Magnesium Level 1.9 MG/DL 1.8 MG/DL 2.0 MG/DL Alkaline Phosphatase 109 U/L 108 U/L 116 U/L Aspartate Amino Transf (AST/SGOT) 42 U/L 36 U/L 37 U/L Alanine Aminotransferase (ALT/SGPT) 40 U/L 38 U/L 37 U/L Total Bilirubin 0.6 MG/DL 0.6 MG/DL 0.6 MG/DL Sodium Level 141 MEQ/L 143 MEQ/L 139 MEQ/L Potassium Level 3.1 MEQ/L 3.0 MEQ/L 3.1 MEQ/L Chloride Level 112 MEQ/L 112 MEQ/L 107 MEQ/L Carbon Dioxide Level 20.6 MEQ/L 21.0 MEQ/L 19.7 MEQ/L Anion Gap 8 MEQ/L 10 MEQ/L 12 MEQ/L Estimat Glomerular Filtration Rate 37 ML/MIN 39 ML/MIN 48 ML/MIN Random Vancomycin Level 12.7 COMMENT Imaging Last Impressions Consultation 04/14/17 1534 Signed Impressions: Service Date/Time: Friday, April 14, 2017 15:34 - CONCLUSION: 1. Drainage performed secondary to an inadequate volume Gabriel Taylor MD Abdomen/Pelvis CT 04/12/17 0000 Signed Impressions: Service Date/Time: Wednesday, April 12, 2017 12:43 - CONCLUSION: 1. Descending colonic diverticulitis with abscess formation and a few scattered foci of free air and fluid characteristic of perforation. 2. Severe sigmoid diverticulosis. 3. Atherosclerosis. Nakul Rosas MD Objective Remarks GENERAL: Awake and alert but in atrial fibrillation NOW CONTROLLED appears to be in MILD distress- LESS lethargic at this time SKIN: Warm and dry. HEAD: Atraumatic. Normocephalic. EYES: Pupils equal and round. No scleral icterus. No injection or drainage. Extraocular muscles intact ENT: No nasal bleeding or discharge. Mucous membranes pink and moist. Oral mucosa is moist tongue is midline NECK: Trachea midline. No JVD. Supple CARDIOVASCULAR: IRRegular rate and rhythm. In A. fib S1-S2 no S3 or S4 no heave or thrill or rub RESPIRATORY: No accessory muscle use. Clear to auscultation. Breath sounds equal bilaterally. GASTROINTESTINAL: Abdomen soft but LESS tender left quadrant nondistended. Hepatic and splenic margins not palpable. NO rebound MUSCULOSKELETAL: Extremities without clubbing, cyanosis, or edema. No obvious deformities. NEUROLOGICAL: Awake and alert. No obvious cranial nerve deficits. Motor grossly within normal limits. Five out of 5 muscle strength in the arms and legs. Normal speech. PSYCHIATRIC: Appropriate mood and affect; insight and judgment normal. Procedures NONE Medications and IVs Current Medications Morphine Sulfate (Morphine Inj) 4 mg ONCE ONCE IV PUSH Last administered on 12:00; Start 04/12/17 at 11:45; Stop 04/12/17 at 11:46; Status DC Ondansetron HCl (Zofran Inj) 4 mg ONCE ONCE IVP Last administered on 04/12/17 11:59; Start 04/12/17 at 11:45; Stop 04/12/17 at 11:46; Status DC Sodium Chloride (NS Flush) 2 ml UNSCH PRN IV FLUSH FLUSH AFTER USING IV ACCESS Last administered on 04/12/17 12:00; Start 04/12/17 at 11:45; Stop 04/15/17 at 11: 20; Status DC Hydromorphone HCl (Dilaudid Pf Inj) 0.5 mg ONCE ONCE IVS Last administered on 04/12/17 13:18; Start 04/12/17 at 13:15; Stop 04/12/17 at 13:16; Status DC Metronidazole 100 ml @ 100 mls/hr ONCE ONCE IV Last administered on 04/12/17 13:18; Start 04/12/17 at 13:15; Stop 04/13/17 at 09:11; Status DC Ceftazidime 2000 mg/Sodium Chloride 100 ml @ 200 mls/hr ONCE ONCE IV Last administered on 04/12/17 14:15; Start 04/12/17 at 13:15; Stop 04/12/17 at 13:44; Status DC Hydromorphone HCl (Dilaudid Pf Inj) 0.5 mg ONCE ONCE IV PUSH Last administered on 04/12/17 15:43; Start 04/12/17 at 15:45; Stop 04/12/17 at 15:46; Status DC Sodium Chloride 1,000 ml @ 2,000 mls/hr Q30M ONCE IV Last administered on 15:42; Start 04/12/17 at 15:45; Stop 04/12/17 at 16:14; Status DC Morphine Sulfate (Morphine Inj) 1 mg Q3H PRN IV PAIN 1-10 Last administered on 04/12/17 17:36; Start 04/12/17 at 17:45; Stop 04/12/17 at 19:28; Status DC Ondansetron HCl (Zofran Inj) 4 mg Q6H PRN IV PUSH NAUSEA Last administered on 05:33; Start 04/12/17 at 17:45 Dextrose/Sodium Chloride 1,000 ml @ 150 mls/hr Q6H40M IV Last administered on 04/15/17 08:37; Start 04/12/17 at 18:00; Stop 04/15/17 at 11:23; Status DC Ceftazidime 2000 mg/Sodium Chloride 100 ml @ 200 mls/hr Q8H IV Last administered on 04/13/17 19:52; Start 04/12/17 at 22:00; Stop 04/14/17 at 05:03; Status DC Hydromorphone HCl (Dilaudid Pf Inj) 0.3 mg Q3H PRN IV PAIN 1-10 Last administered on 04/13/17 11:35; Start 04/12/17 at 20:00; Stop 04/13/17 at 12:49; Status DC Alprazolam (Xanax) 0.5 mg Q8H PRN PO ANXIETY Last administered on 04/13/17 19: 52; Start 04/13/17 at 09:15; Stop 04/14/17 at 04:57; Status DC Aspirin (Ecotrin Ec) 81 mg BID PO ; Start 04/13/17 at 09:15; Stop 04/13/17 at 12: 48; Status DC Atenolol (Tenormin) 50 mg DAILY PO ; Start 04/13/17 at 09:15; Status Future Hold Guanfacine HCl (Tenex) 1 mg HS PO Last administered on 04/13/17 19:52; Start at 21:00; Stop 04/14/17 at 03:03; Status DC Triamterene/HCTZ (Maxzide 37.5-25 Mg) 1 tab EVERY OTHER DAY PO ; Start 04/15/17 at 09:00; Stop 04/15/17 at 09:00; Status DC Losartan Potassium (Cozaar) 50 mg DAILY PO ; Start 04/14/17 at 09:00; Status Future Hold Aspirin (Ecotrin Ec) 81 mg DAILY PO Last administered on 04/19/17 08:19; Start 04/14/17 at 09:00 Hydromorphone HCl (Dilaudid Pf Inj) 0.3 mg Q2H PRN IV PAIN 1-10 Last administered on 04/13/17 22:01; Start 04/13/17 at 13:00; Stop 04/14/17 at 06:21; Status DC Sodium Chloride 250 ml @ 250 mls/hr UNSCH X1 IV Last administered on 03:26; Start 04/14/17 at 03:30; Stop 04/14/17 at 04:30; Status DC Alprazolam (Xanax) 0.25 mg Q8H PRN PO ANXIETY Last administered on 04/17/17 01: 36; Start 04/14/17 at 09:15 Ketorolac Tromethamine (Toradol Inj) 15 mg Q6H PRN IV PUSH pain >5 Last administered on 04/14/17 05:33; Start 04/14/17 at 05:00; Stop 04/19/17 at 04:59; Status DC Piperacillin Sod/ Tazobactam Sod 100 ml @ 200 mls/hr Q6H IV ; Start 04/14/17 at 06:00; Stop 04/14/17 at 06:00; Status DC Sodium Chloride 500 ml @ 500 mls/hr BOLUS ONCE IV Last administered on 05:33; Start 04/14/17 at 05:15; Stop 04/14/17 at 06:14; Status DC Piperacillin Sod/ Tazobactam Sod 50 ml @ 200 mls/hr Q6H IV Last administered on 04/19/17 05:22; Start 04/14/17 at 06:00 Heparin Sodium (Porcine) (Heparin Inj) 5,000 units Q8HR SQ Last administered on 04/19/17 05:21; Start 04/14/17 at 14:00 Pantoprazole Sodium (Protonix Inj) 40 mg Q24H IV PUSH Last administered on 04/19 08:27; Start 04/14/17 at 09:00 Acetaminophen/ Hydrocodone Bitart ([place] 5-325 Mg) 1 tab Q6H PRN PO pain 1-10 Last administered on 04/15/17 02:38; Start 04/14/17 at 08:30; Stop 04/15/17 at 11: 23; Status DC Atenolol (Tenormin) 50 mg STAT ONCE PO Last administered on 04/15/17 07:21; Start 04/15/17 at 07:30; Stop 04/15/17 at 07:31; Status DC Diltiazem HCl (Cardizem Inj) 20 mg ONCE ONCE IV PUSH Last administered on 10:44; Start 04/15/17 at 10:30; Stop 04/15/17 at 10:31; Status DC Diltiazem HCl 125 mg/Sodium Chloride 125 ml @ 5 mls/hr TITRATE PRN IV Tachycardia; Start 04/15/17 at 10:30; Stop 04/17/17 at 17:44; Status DC Sodium Chloride 1,000 ml @ 999 mls/hr BOLUS ONCE IV Last administered on 10:45; Start 04/15/17 at 10:45; Stop 04/15/17 at 11:45; Status DC Sodium Chloride 1,000 ml @ 150 mls/hr Q6H40M IV Last administered on 04/16/17 03:54; Start 04/15/17 at 11:00; Stop 04/17/17 at 08:08; Status DC Vancomycin HCl 1250 mg/Sodium Chloride 262.5 ml @ 262.5 mls/ hr ONCE ONCE IV ; Start 04/15/17 at 10:45; Stop 04/15/17 at 11:44; Status UNV Pharmacy Profile Note 0 ml @ 0 mls/hr UNSCH OTHER ; Start 04/15/17 at 10:45; Stop 04/18/17 at 12:08; Status DC Sodium Chloride (NS Flush) 2 ml UNSCH PRN IV FLUSH FLUSH AFTER USING IV ACCESS ; Start 04/15/17 at 10:45 Sodium Chloride (NS Flush) 2 ml BID IV FLUSH Last administered on 04/19/17 08: 27; Start 04/15/17 at 10:45 Acetaminophen (Tylenol) 650 mg Q6H PRN PO PAIN SCALE 1 TO 2 Last administered on 04/19/17 08:26; Start 04/15/17 at 10:45 Oxycodone/ Acetaminophen (Percocet 5-325 Mg) 1 tab Q6H PRN PO PAIN SCALE 3 TO 5; Start 04/15/17 at 10:45; Stop 04/15/17 at 19:28; Status DC Oxycodone/ Acetaminophen (Percocet 10-325 Mg) 1 tab Q6H PRN PO PAIN SCALE 6 TO 10; Start 04/15/17 at 10:45; Stop 04/15/17 at 19:28; Status DC Morphine Sulfate (Morphine Inj) 2 mg Q3H PRN IV Pain 3-5; if unable to take PO Last administered on 04/15/17 16:12; Start 04/15/17 at 10:45; Stop 04/15/17 at 19: 28; Status DC Morphine Sulfate (Morphine Inj) 4 mg Q3H PRN IV Pain 6-10;if unable to take PO ; Start 04/15/17 at 10:45; Stop 04/15/17 at 19:28; Status DC Naloxone HCl (Narcan Inj) 0.4 mg UNSCH PRN IV SEE LABEL COMMENTS; Start at 10:45 Senna/Docusate Sodium (Miranda-Colace) 1 tab BID PO Last administered on 04/17/17 09:47; Start 04/15/17 at 21:00; Stop 04/18/17 at 10:12; Status DC Magnesium Hydroxide (Milk Of Magnesia Liq) 30 ml Q12H PRN PO MILD - MODERATE CONSTIPATION; Start 04/15/17 at 10:45 Sennosides (Senokot) 17.2 mg Q12H PRN PO MODERATE - SEVERE CONSTIPATION; Start 04/15/17 at 10:45 Bisacodyl (Dulcolax Supp) 10 mg DAILY PRN RECTAL SEVERE CONSITIPATION; Start at 10:45 Lactulose (Lactulose Liq) 30 ml DAILY PRN PO SEVERE CONSITIPATION; Start at 10:45; Stop 04/15/17 at 11:51; Status DC Vancomycin HCl 1500 mg/Sodium Chloride 515 ml @ 250 mls/hr ONCE ONCE IV ; Start 04/15/17 at 14:00; Stop 04/15/17 at 16:03; Status DC Acetaminophen/ Hydrocodone Bitart ([place] 5-325 Mg) 1 tab Q6H PRN PO PAIN SCALE 5 TO 10 Last administered on 04/19/17 05:21; Start 04/15/17 at 19:30 Atorvastatin Calcium (Lipitor) 10 mg [id number]@[id number] PO Last administered on 08:26; Start 04/16/17 at 09:30 Vancomycin HCl 1500 mg/Sodium Chloride 515 ml @ 257.5 mls/ hr ONCE ONCE IV Last administered on 04/16/17 13:00; Start 04/16/17 at 11:00; Stop 04/16/17 at 12: 59; Status DC Polyethylene Glycol (Miralax) 17 gm DAILY PRN PO no bowel movement Last administered on 04/16/17 13:54; Start 04/16/17 at 09:45 Metoprolol Tartrate (Lopressor) 25 mg BID PO Last administered on 04/17/17 21: 04; Start 04/16/17 at 21:00; Stop 04/18/17 at 09:03; Status DC Metoprolol Tartrate (Lopressor) 50 mg BID PO Last administered on 04/19/17 08: 19; Start 04/18/17 at 10:00 Diltiazem HCl (Cardizem) 30 mg Q6HR PO Last administered on 04/19/17 05:21; Start 04/18/17 at 12:00 Vancomycin HCl 1500 mg/Sodium Chloride 515 ml @ 257.5 mls/ hr ONCE ONCE IV ; Start 04/18/17 at 11:00; Stop 04/18/17 at 12:05; Status DC Magnesium Sulfate/ Dextrose 100 ml @ 100 mls/hr Q1H IV Last administered on 10:55; Start 04/18/17 at 10:00; Stop 04/18/17 at 11:59; Status DC Sodium Phosphate 30 mmol/Sodium Chloride 260 ml @ 43.333 mls/ hr ONCE ONCE IV Last administered on 04/18/17 14:27; Start 04/18/17 at 11:00; Stop 04/18/17 at 16:59; Status DC Potassium Phosphate 30 mmol/ Sodium Chloride 260 ml @ 43.333 mls/ hr ONCE ONCE IV Last administered on 04/18/17 11:31; Start 04/18/17 at 09:15; Stop 05/25 at 15:14; Status DC Potassium Phosphate 30 mmol/ Sodium Chloride 260 ml @ 43.333 mls/ hr ONCE ONCE IV Last administered on 04/18/17 11:31; Start 04/18/17 at 11:15; Stop 05/25 at 17:14; Status DC Lactobacillus Acidophilus (Lactinex) 1 tab TID PO Last administered on 08:19; Start 04/18/17 at 13:00 Senna/Docusate Sodium (Miranda-Colace) 1 tab BID PRN PO MILD CONSTIPATION; Start 04/18/17 at 10:15 Urinary Catheter: No Vascular Central Line Catheter: No A/P Assessment and Plan Impression: A. fib with RVR-atenolol has been restarted. We'll need to get an Cardizem IV push 20 mg. And Cardizem drip and transferred to the ICU will consult cardiology and get an echocardiogram and trend troponins--IN [facility] NOW-- WEAN OFF CARDIZEM DRIP Hypotension with reflex tachycardia- suspect volume Depletion. Also compounded by pain medicine as well.-Appears that patient has a history of what sounds like atrial fibrillation Rhabdomyolysis trending down Acute renal failure- secondary to dehydration possible early septic shock- AGGRESSIVE FLUID REHYDRATION Ruptured diverticula as well as with early abscess formation. No drainable fluid per IR. Procedure was canceled Leukocytosis with left shift and bandemia on antibiotics ZOSYN History of Hypertension CAD status post cardiac stents 2 TIA 2 Sinus tachycardia per patient Atrial fibrillation with RVR continue on Cardizem drip consult cardiology trend troponins echocardiogram- WEAN OFF CARDIZEM DRIP- PO BETA AND CARDIZEM HYPOTENSION- GIVE IV FLUIDS NS BOLUS 1 LITER--IMPROVED- RESOLVED RENAL INSUFFICIENCY- IMPROVED ABDOMINAL PAIN IMPROVING- DIET ADVANCED BY CRS HYPOMAG- REPLACE HYPOPHOS- REPLACE ADD LACTINEX FOR DIARRHEA HYPOKALEMIA REPLACE Plan: Continue IV fluids--HEPLOCK IV Also continue maintenance IV fluids with normal saline at 1 50 cc per hour.-- HEPLOCK IV We will recheck labs in a.m. Adjust medications We'll switch antibiotics to Zosyn. Hold narcotics. Will manage pain will discontinue Toradol Use narcotics for pain control If the blood pressure permits, we can slowly and small dose pain medications. Patient is quite truly in pain. Restart atenolol continue on Cardizem drip- OF CARDIZEM DRIP Bladder scan to make sure the patient's acute renal failure is not from dehydration. We'll follow CPK, and renal function. If needed, would start patient on bicarbonate drip. We will follow patient along with you. DVT prophylaxiswith heparin. GI prophylaxis on pantoprazole. See orders A.m. labs Transferred to ICU for close monitoring and Cardizem drip-- OUT OF ICU- OFF CARDIZEM DRIP CHIP BRANDON AND PT Gagan Johnson DO Apr 19, 2017 09:45
[2017-04-19] MEDS: POTASSIUM CHLORIDE 10 MEQ CONTROLLED RELEASE TAB PO SCH ×2 (11:28→21:22)
[2017-04-19] MEDS ORDERED: CALCIUM GLUCONATE INJ 2 GM in SODIUM CHLORIDE 0.9% INJ 100 ML IV ONE (12:00)
--- NOTE | 2017-04-19 14:47 | PD.CARD.PN ---
Subjective Subjective Remarks Stable cv denies cp or sob Objective Vital Signs / I&O Vital Signs Date Time Temp Pulse Resp B/P (MAP) Pulse Ox O2 Delivery O2 Flow Rate FiO2 04/19/17 14:05 91 04/19/17 13:15 83 04/19/17 12:31 74 04/19/17 12:17 18 04/19/17 11:30 96 Room Air 04/19/17 11:30 82 04/19/17 11:30 97.3 84 16 156/87 (110) 95 04/19/17 10:22 71 04/19/17 09:50 76 04/19/17 09:49 80 04/19/17 09:36 18 04/19/17 07:30 96 Room Air 04/19/17 07:30 82 04/19/17 07:30 98.7 84 16 133/81 (98) 95 04/19/17 06:05 82 04/19/17 06:00 82 04/19/17 05:00 80 04/19/17 04:00 100 04/19/17 03:47 98.4 89 16 161/92 (115) 95 04/19/17 03:17 95 Room Air 04/19/17 03:00 90 04/19/17 02:00 78 04/19/17 01:00 74 04/19/17 00:54 98.3 94 16 166/94 (118) 94 04/19/17 00:00 94 04/18/17 23:32 98 Room Air 04/18/17 23:00 74 04/18/17 22:00 76 04/18/17 21:00 78 04/18/17 20:32 98.3 94 16 151/89 (109) 98 04/18/17 20:00 92 04/18/17 19:35 97 Room Air 04/18/17 19:00 88 04/18/17 18:16 88 04/18/17 17:18 95 04/18/17 16:02 79 04/18/17 15:29 80 04/18/17 15:29 98.0 84 16 157/89 (111) 94 04/18/17 15:29 96 Room Air I/O 04/18/17 04/18/17 04/18/17 04/19/17 04/19/17 04/19/17 07:00 15:00 23:00 07:00 15:00 23:00 Intake Total 589 ml 1330 ml 480 ml Output Total 400 ml 400 ml 2 ml Balance 189 ml 930 ml 478 ml Intake Oral 480 ml 480 ml 480 ml IV Total 109 ml 850 ml Output Urine Total 400 ml 400 ml Stool Total 2 ml # Voids 4 1 # Bowel Movements 2 4 Physical Exam GENERAL: Well-nourished, well-developed patient in no apparent distress. SKIN: Warm and dry. NECK: JVD normal - less than or equal to 5 cm H20. CARDIOVASCULAR: Regular rate and rhythm without murmurs, gallops or rubs. RESPIRATORY: Normal breath sounds - equal bilaterally. No accessory muscle use. No wheezes, rales or rubs. PERIPHERY: No cyanosis or edema. Laboratory Laboratory Tests Test 04/19/17 04:34 04/19/17 04:39 White Blood Count 12.7 TH/MM3 Red Blood Count 3.77 MIL/MM3 Hemoglobin 11.6 GM/DL Hematocrit 35.0 % Mean Corpuscular Volume 92.8 FL Mean Corpuscular Hemoglobin 30.6 PG Mean Corpuscular Hemoglobin Concent 33.0 % Red Cell Distribution Width 15.9 % Platelet Count 178 TH/MM3 Mean Platelet Volume 8.1 FL Neutrophils (%) (Auto) 81.3 % Lymphocytes (%) (Auto) 8.7 % Monocytes (%) (Auto) 9.3 % Eosinophils (%) (Auto) 0.7 % Basophils (%) (Auto) 0.0 % Neutrophils # (Auto) 10.3 TH/MM3 Lymphocytes # (Auto) 1.1 TH/MM3 Monocytes # (Auto) 1.2 TH/MM3 Eosinophils # (Auto) 0.1 TH/MM3 Basophils # (Auto) 0.0 TH/MM3 CBC Comment DIFF FINAL Differential Comment Blood Urea Nitrogen 25 MG/DL Creatinine 1.10 MG/DL Random Glucose 108 MG/DL Total Protein 5.8 GM/DL Albumin 1.7 GM/DL Calcium Level 7.7 MG/DL Phosphorus Level 3.2 MG/DL Magnesium Level 2.0 MG/DL Alkaline Phosphatase 116 U/L Aspartate Amino Transf (AST/SGOT) 37 U/L Alanine Aminotransferase (ALT/SGPT) 37 U/L Total Bilirubin 0.6 MG/DL Sodium Level 139 MEQ/L Potassium Level 3.1 MEQ/L Chloride Level 107 MEQ/L Carbon Dioxide Level 19.7 MEQ/L Anion Gap 12 MEQ/L Estimat Glomerular Filtration Rate 48 ML/MIN Assessment and Plan Assessment and Plan Overall doing better, OK to dc in am if stable FU with Dr Gillespie after d/c Pamela Xavier MD Apr 19, 2017 14:47
[2017-04-20] VITALS (23 sets, daily range): BP systolic 130–161; BP diastolic 82–96; PULSE 75–98; RESP 16–20; TEMP 98.3–98.8; O2SAT 94–97
[2017-04-20] MEDS: DILTIAZEM HCL 30 MG TAB PO SCH ×4 (01:20→17:34)
[2017-04-20] MEDS: PIPERACIL-TAZO 3.375 GM PREMIX 50 ML IV SCH ×4 (01:23→17:34)
[2017-04-20] MEDS: ACETAMINOPHEN 325 MG TAB PO PRN ×3 (01:26→17:33)
[2017-04-20] MEDS: HEPARIN SODIUM - SQ 10,000 UNITS/ML VIAL SQ SCH ×3 (05:23→22:00)
[2017-04-20] MEDS: ACETAMINOPHEN/HYDROcodone 325 MG/5 MG TAB PO PRN ×3 (05:24→21:42)
[2017-04-20 07:11] LABS: AUTOMATED NEUTROPHIL # 11.6 TH/MM3 (1.8-7.7); BASOPHIL % 0.2 % (0.0-2.0); EOSINOPHIL # 0.1 TH/MM3 (0-0.4); EOSINOPHIL % 0.5 % (0.0-4.0); HEMATOCRIT 34.5 % (35.0-46.0); LYMPH % 8.1 % (9.0-44.0); LYMPHOCYTE # 1.1 TH/MM3 (1.0-4.8); MEAN CELL VOLUME 93.3 FL (80.0-100.0); MEAN CORPUSCULAR HEMOGLOBIN 30.9 PG (27.0-34.0); MEAN CORPUSCULAR HGB CONC 33.1 % (32.0-36.0); MONO % 7.2 % (0.0-8.0); PLATELET COUNT 214 TH/MM3 (150-450); RED CELL DISTRIBUTION WIDTH 15.7 % (11.6-17.2); WHITE BLOOD COUNT 13.8 TH/MM3 (4.0-11.0)
[2017-04-20 07:17] LABS: HEMO FLAGS AUTO DIFF
[2017-04-20 07:37] LABS: ALT (GPT) 32 U/L (10-53); ANION GAP 9 MEQ/L (5-15); AST (GOT) 29 U/L (15-37); BICARBONATE 21.6 MEQ/L (21.0-32.0); BLOOD UREA NITROGEN 21 MG/DL (7-18); CHLORIDE 107 MEQ/L (98-107); GLOMERULAR FILTRATION RATE 54 ML/MIN (>89); MAGNESIUM 1.6 MG/DL (1.5-2.5); POTASSIUM 3.5 MEQ/L (3.5-5.1); SODIUM (NA) 138 MEQ/L (136-145)
[2017-04-20 07:47] LABS: ALKALINE PHOSPHATASE 111 U/L (45-117); TOTAL BILIRUBIN ADULT 0.5 MG/DL (0.2-1.0)
[2017-04-20 08:03] LABS: BANDS 14 % (0-6); NEUTROPHIL # MANUAL DIFF 11.5 TH/MM3 (1.8-7.7); POLYS (SEG NEUTROPHILS) 69 % (16-70); WBC DIFF SAMPLE 100
[2017-04-20 08:04] LABS: PLATELET ESTIMATE SMEAR NORMAL (NORMAL); PLATELET MORPHOLOGY NORMAL (NORMAL); SCAN/DIFF FINAL DIFF MANUAL
[2017-04-20] MEDS: ASPIRIN EC 81 MG TABEC PO SCH (08:44)
[2017-04-20] MEDS: SODIUM CHLORIDE 0.9% FLUSH 10 ML FLUSH IV FLUSH SCH ×2 (08:44→21:00)
[2017-04-20] MEDS: PANTOPRAZOLE SODIUM 40 MG VIAL IV PUSH SCH (08:44)
[2017-04-20] MEDS: LACTOBACILLUS ACIDOPHILUS TAB PO SCH ×3 (08:44→17:33)
[2017-04-20] MEDS: METOPROLOL TARTRATE 50 MG TAB PO SCH ×2 (08:45→21:42)
[2017-04-20] MEDS: POTASSIUM CHLORIDE 10 MEQ CONTROLLED RELEASE TAB PO SCH ×2 (08:45→21:41)
--- NOTE | 2017-04-20 08:54 | HHI.PR ---
Subjective Remarks Patient was admitted to colorectal surgery service on April 12, 2017. Patient reported that on that particular day, she was having severe left lower quadrant abdominal pain which came on suddenly. Denies any associated nausea/vomiting/diarrhea. She reports that the pain was so severe and this was the main reason why she came to hospital. Denies any fever. Denies any vomiting/diarrhea. Patient denies any associated chest pain/palpitations/dizziness/syncopal episodes. Denies having any blood in her stool or in her urine. Denies coughing out blood. Denies fever. Patient and nursing staff reported the patient was receiving pain medications Dilaudid 0.3 mg almost every 2 hours for her abdominal pain while in hospital. She initially has elevated blood pressures around systolic of 140 to 170s. However by the evening shift, her blood pressure was dropping to as low as 60s over 40s. 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 She was also having associated tachycardia. Patient does report of history of hypertension for which she takes antihypertensives at home. She has not received any of these medications while in hospital to explain her hypotension. She reports of history of tachycardia. She is not on any blood thinners at home. 9-7 called to see patient patient noted to be in A. fib with RVR will give Cardizem IV and placed on Cardizem drip and transferred to the ICU Consult cardiology. Will get a cardiac echo. We will trend troponins and cardiac enzymes We'll get an ABG Discussed with Dr. 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 CONTROLLED STILL ON CARDIZEM DRIP SEEN BY CARDIOLOGY AND INFECTIOUS DISEASE COMPLAINS OF PAIN ALL OVER TOLERATING DIET SO FAR AM LABS DW CARDIO AND RN AND PATIENT 9-9 DENIES ANY ABDOMINAL PAIN AT THIS MOMENT DIET ADVANCED BY SURGERY MONITOR BLOOD PRESSURES AM LABS WATCH RENAL FUNCTIONS DW RN AND PT 9-10 TOLERATING A DIET HAD LOTS OF DIARRHEA YESTERDAY NOW HAS HYPOKALEMIA AND HYPOMAGNESIA TOLERATING A DIET ADD LACTINEX 9-11 REPLACE POTASSIUM ORALLY AM LABS MEDS ADJUSTED HEART RATE CONTROLLED DW RN AND PT 9-12 still has some left side abdominal pain tolerating a diet has been cleared by cardiology can be cleared by hospitalist once cleared by CRS FOR DC TO HOME DW RN AND PT Objective Vitals Vital Signs Date Time Temp Pulse Resp B/P (MAP) Pulse Ox O2 Delivery O2 Flow Rate FiO2 04/20/17 07:13 98.8 94 18 133/82 (99) 97 04/20/17 06:23 98.7 84 16 144/86 (105) 95 04/20/17 06:22 97 Room Air 04/20/17 06:00 88 04/20/17 05:00 90 04/20/17 04:00 90 04/20/17 03:00 90 04/20/17 02:00 86 04/20/17 01:00 78 04/20/17 00:05 98.3 75 16 161/96 (117) 94 04/20/17 00:00 78 04/19/17 23:53 97 Room Air 04/19/17 23:00 80 04/19/17 22:00 80 04/19/17 21:00 80 04/19/17 20:00 98.1 92 16 170/96 (120) 95 04/19/17 20:00 78 04/19/17 19:35 97 Room Air 04/19/17 19:00 78 04/19/17 18:45 87 04/19/17 17:24 88 04/19/17 16:45 84 04/19/17 15:41 97.9 91 16 150/79 (102) 99 04/19/17 15:41 99 Room Air 04/19/17 15:41 97 04/19/17 14:05 91 04/19/17 13:15 83 04/19/17 12:31 74 04/19/17 12:17 18 04/19/17 11:30 96 Room Air 04/19/17 11:30 82 04/19/17 11:30 97.3 84 16 156/87 (110) 95 04/19/17 10:22 71 04/19/17 09:50 76 04/19/17 09:49 80 04/19/17 09:36 18 I/O 04/19/17 04/19/17 04/19/17 04/20/17 04/20/17 04/20/17 07:00 15:00 23:00 07:00 15:00 23:00 Intake Total 480 ml 480 ml 960 ml Output Total 2 ml 700 ml Balance 478 ml 480 ml 260 ml Intake Oral 480 ml 480 ml 960 ml Output Urine Total 700 ml Stool Total 2 ml # Voids 1 3 # Bowel Movements 3 2 Result Diagram: 04/20/17 0535 04/20/17 0535 Other Results Laboratory Tests Test 04/17/17 20:23 04/18/17 06:25 04/19/17 04:34 04/19/17 04:39 White Blood Count 9.5 TH/MM3 9.4 TH/MM3 12.7 TH/MM3 Red Blood Count 3.66 MIL/MM3 3.48 MIL/MM3 3.77 MIL/MM3 Hemoglobin 11.4 GM/DL 11.2 GM/DL 11.6 GM/DL Hematocrit 34.2 % 32.9 % 35.0 % Mean Corpuscular Volume 93.3 FL 94.6 FL 92.8 FL Mean Corpuscular Hemoglobin 31.2 PG 32.1 PG 30.6 PG Mean Corpuscular Hemoglobin Concent 33.4 % 33.9 % 33.0 % Red Cell Distribution Width 16.1 % 16.2 % 15.9 % Platelet Count 172 TH/MM3 157 TH/MM3 178 TH/MM3 Mean Platelet Volume 7.4 FL 8.1 FL 8.1 FL Neutrophils (%) (Auto) 83.0 % 83.1 % 81.3 % Lymphocytes (%) (Auto) 7.5 % 7.6 % 8.7 % Monocytes (%) (Auto) 8.8 % 8.5 % 9.3 % Eosinophils (%) (Auto) 0.6 % 0.7 % 0.7 % Basophils (%) (Auto) 0.1 % 0.1 % 0.0 % Neutrophils # (Auto) 7.9 TH/MM3 7.8 TH/MM3 10.3 TH/MM3 Lymphocytes # (Auto) 0.7 TH/MM3 0.7 TH/MM3 1.1 TH/MM3 Monocytes # (Auto) 0.8 TH/MM3 0.8 TH/MM3 1.2 TH/MM3 Eosinophils # (Auto) 0.1 TH/MM3 0.1 TH/MM3 0.1 TH/MM3 Basophils # (Auto) 0.0 TH/MM3 0.0 TH/MM3 0.0 TH/MM3 CBC Comment AUTO DIFF DIFF FINAL DIFF FINAL Differential Total Cells Counted 100 Neutrophils % (Manual) 69 % Band Neutrophils % 13 % Lymphocytes % 12 % Monocytes % 5 % Neutrophils # (Manual) 7.9 TH/MM3 Myelocytes 1 % Differential Comment FINAL DIFF MANUAL Toxic Granulation 1+ Platelet Estimate LOW Platelet Morphology Comment NORMAL Blood Urea Nitrogen 39 MG/DL 36 MG/DL 25 MG/DL Creatinine 1.38 MG/DL 1.33 MG/DL 1.10 MG/DL Random Glucose 138 MG/DL 123 MG/DL 108 MG/DL Total Protein 5.6 GM/DL 5.6 GM/DL 5.8 GM/DL Albumin 1.6 GM/DL 1.6 GM/DL 1.7 GM/DL Calcium Level 8.1 MG/DL 8.1 MG/DL 7.7 MG/DL Phosphorus Level 1.5 MG/DL 1.2 MG/DL 3.2 MG/DL Magnesium Level 1.9 MG/DL 1.8 MG/DL 2.0 MG/DL Alkaline Phosphatase 109 U/L 108 U/L 116 U/L Aspartate Amino Transf (AST/SGOT) 42 U/L 36 U/L 37 U/L Alanine Aminotransferase (ALT/SGPT) 40 U/L 38 U/L 37 U/L Total Bilirubin 0.6 MG/DL 0.6 MG/DL 0.6 MG/DL Sodium Level 141 MEQ/L 143 MEQ/L 139 MEQ/L Potassium Level 3.1 MEQ/L 3.0 MEQ/L 3.1 MEQ/L Chloride Level 112 MEQ/L 112 MEQ/L 107 MEQ/L Carbon Dioxide Level 20.6 MEQ/L 21.0 MEQ/L 19.7 MEQ/L Anion Gap 8 MEQ/L 10 MEQ/L 12 MEQ/L Estimat Glomerular Filtration Rate 37 ML/MIN 39 ML/MIN 48 ML/MIN Random Vancomycin Level 12.7 COMMENT Test 04/20/17 05:35 White Blood Count 13.8 TH/MM3 Red Blood Count 3.70 MIL/MM3 Hemoglobin 11.4 GM/DL Hematocrit 34.5 % Mean Corpuscular Volume 93.3 FL Mean Corpuscular Hemoglobin 30.9 PG Mean Corpuscular Hemoglobin Concent 33.1 % Red Cell Distribution Width 15.7 % Platelet Count 214 TH/MM3 Mean Platelet Volume 8.2 FL Neutrophils (%) (Auto) 84.0 % Lymphocytes (%) (Auto) 8.1 % Monocytes (%) (Auto) 7.2 % Eosinophils (%) (Auto) 0.5 % Basophils (%) (Auto) 0.2 % Neutrophils # (Auto) 11.6 TH/MM3 Lymphocytes # (Auto) 1.1 TH/MM3 Monocytes # (Auto) 1.0 TH/MM3 Eosinophils # (Auto) 0.1 TH/MM3 Basophils # (Auto) 0.0 TH/MM3 CBC Comment AUTO DIFF Differential Total Cells Counted 100 Neutrophils % (Manual) 69 % Band Neutrophils % 14 % Lymphocytes % 8 % Monocytes % 9 % Neutrophils # (Manual) 11.5 TH/MM3 Differential Comment FINAL DIFF MANUAL Platelet Estimate NORMAL Platelet Morphology Comment NORMAL Red Cell Morphology Comment NORMAL Blood Urea Nitrogen 21 MG/DL Creatinine 0.99 MG/DL Random Glucose 103 MG/DL Total Protein 6.0 GM/DL Albumin 1.8 GM/DL Calcium Level 8.3 MG/DL Phosphorus Level 1.9 MG/DL Magnesium Level 1.6 MG/DL Alkaline Phosphatase 111 U/L Aspartate Amino Transf (AST/SGOT) 29 U/L Alanine Aminotransferase (ALT/SGPT) 32 U/L Total Bilirubin 0.5 MG/DL Sodium Level 138 MEQ/L Potassium Level 3.5 MEQ/L Chloride Level 107 MEQ/L Carbon Dioxide Level 21.6 MEQ/L Anion Gap 9 MEQ/L Estimat Glomerular Filtration Rate 54 ML/MIN Imaging Last Impressions Consultation 04/14/17 1534 Signed Impressions: Service Date/Time: Friday, April 14, 2017 15:34 - CONCLUSION: 1. Drainage performed secondary to an inadequate volume Gabriel Taylor MD Abdomen/Pelvis CT 04/12/17 0000 Signed Impressions: Service Date/Time: Wednesday, April 12, 2017 12:43 - CONCLUSION: 1. Descending colonic diverticulitis with abscess formation and a few scattered foci of free air and fluid characteristic of perforation. 2. Severe sigmoid diverticulosis. 3. Atherosclerosis. Nakul Rosas MD Objective Remarks GENERAL: Awake and alert but in atrial fibrillation NOW CONTROLLED appears to be in MILD distress- LESS lethargic at this time SKIN: Warm and dry. HEAD: Atraumatic. Normocephalic. EYES: Pupils equal and round. No scleral icterus. No injection or drainage. Extraocular muscles intact ENT: No nasal bleeding or discharge. Mucous membranes pink and moist. Oral mucosa is moist tongue is midline NECK: Trachea midline. No JVD. Supple CARDIOVASCULAR: IRRegular rate and rhythm. In A. fib S1-S2 no S3 or S4 no heave or thrill or rub RESPIRATORY: No accessory muscle use. Clear to auscultation. Breath sounds equal bilaterally. GASTROINTESTINAL: Abdomen soft but LESS tender left quadrant nondistended. Hepatic and splenic margins not palpable. NO rebound MUSCULOSKELETAL: Extremities without clubbing, cyanosis, or edema. No obvious deformities. NEUROLOGICAL: Awake and alert. No obvious cranial nerve deficits. Motor grossly within normal limits. Five out of 5 muscle strength in the arms and legs. Normal speech. PSYCHIATRIC: Appropriate mood and affect; insight and judgment normal. Procedures NONE Medications and IVs Current Medications Morphine Sulfate (Morphine Inj) 4 mg ONCE ONCE IV PUSH Last administered on 12:00; Start 04/12/17 at 11:45; Stop 04/12/17 at 11:46; Status DC Ondansetron HCl (Zofran Inj) 4 mg ONCE ONCE IVP Last administered on 04/12/17 11:59; Start 04/12/17 at 11:45; Stop 04/12/17 at 11:46; Status DC Sodium Chloride (NS Flush) 2 ml UNSCH PRN IV FLUSH FLUSH AFTER USING IV ACCESS Last administered on 04/12/17 12:00; Start 04/12/17 at 11:45; Stop 04/15/17 at 11: 20; Status DC Hydromorphone HCl (Dilaudid Pf Inj) 0.5 mg ONCE ONCE IVS Last administered on 04/12/17 13:18; Start 04/12/17 at 13:15; Stop 04/12/17 at 13:16; Status DC Metronidazole 100 ml @ 100 mls/hr ONCE ONCE IV Last administered on 04/12/17 13:18; Start 04/12/17 at 13:15; Stop 04/13/17 at 09:11; Status DC Ceftazidime 2000 mg/Sodium Chloride 100 ml @ 200 mls/hr ONCE ONCE IV Last administered on 04/12/17 14:15; Start 04/12/17 at 13:15; Stop 04/12/17 at 13:44; Status DC Hydromorphone HCl (Dilaudid Pf Inj) 0.5 mg ONCE ONCE IV PUSH Last administered on 04/12/17 15:43; Start 04/12/17 at 15:45; Stop 04/12/17 at 15:46; Status DC Sodium Chloride 1,000 ml @ 2,000 mls/hr Q30M ONCE IV Last administered on 15:42; Start 04/12/17 at 15:45; Stop 04/12/17 at 16:14; Status DC Morphine Sulfate (Morphine Inj) 1 mg Q3H PRN IV PAIN 1-10 Last administered on 04/12/17 17:36; Start 04/12/17 at 17:45; Stop 04/12/17 at 19:28; Status DC Ondansetron HCl (Zofran Inj) 4 mg Q6H PRN IV PUSH NAUSEA Last administered on 05:33; Start 04/12/17 at 17:45 Dextrose/Sodium Chloride 1,000 ml @ 150 mls/hr Q6H40M IV Last administered on 04/15/17 08:37; Start 04/12/17 at 18:00; Stop 04/15/17 at 11:23; Status DC Ceftazidime 2000 mg/Sodium Chloride 100 ml @ 200 mls/hr Q8H IV Last administered on 04/13/17 19:52; Start 04/12/17 at 22:00; Stop 04/14/17 at 05:03; Status DC Hydromorphone HCl (Dilaudid Pf Inj) 0.3 mg Q3H PRN IV PAIN 1-10 Last administered on 04/13/17 11:35; Start 04/12/17 at 20:00; Stop 04/13/17 at 12:49; Status DC Alprazolam (Xanax) 0.5 mg Q8H PRN PO ANXIETY Last administered on 04/13/17 19: 52; Start 04/13/17 at 09:15; Stop 04/14/17 at 04:57; Status DC Aspirin (Ecotrin Ec) 81 mg BID PO ; Start 04/13/17 at 09:15; Stop 04/13/17 at 12: 48; Status DC Atenolol (Tenormin) 50 mg DAILY PO ; Start 04/13/17 at 09:15; Status Future Hold Guanfacine HCl (Tenex) 1 mg HS PO Last administered on 04/13/17 19:52; Start at 21:00; Stop 04/14/17 at 03:03; Status DC Triamterene/HCTZ (Maxzide 37.5-25 Mg) 1 tab EVERY OTHER DAY PO ; Start 04/15/17 at 09:00; Stop 04/15/17 at 09:00; Status DC Losartan Potassium (Cozaar) 50 mg DAILY PO ; Start 04/14/17 at 09:00; Status Future Hold Aspirin (Ecotrin Ec) 81 mg DAILY PO Last administered on 04/19/17 08:19; Start 04/14/17 at 09:00 Hydromorphone HCl (Dilaudid Pf Inj) 0.3 mg Q2H PRN IV PAIN 1-10 Last administered on 04/13/17 22:01; Start 04/13/17 at 13:00; Stop 04/14/17 at 06:21; Status DC Sodium Chloride 250 ml @ 250 mls/hr UNSCH X1 IV Last administered on 03:26; Start 04/14/17 at 03:30; Stop 04/14/17 at 04:30; Status DC Alprazolam (Xanax) 0.25 mg Q8H PRN PO ANXIETY Last administered on 04/17/17 01: 36; Start 04/14/17 at 09:15 Ketorolac Tromethamine (Toradol Inj) 15 mg Q6H PRN IV PUSH pain >5 Last administered on 04/14/17 05:33; Start 04/14/17 at 05:00; Stop 04/19/17 at 04:59; Status DC Piperacillin Sod/ Tazobactam Sod 100 ml @ 200 mls/hr Q6H IV ; Start 04/14/17 at 06:00; Stop 04/14/17 at 06:00; Status DC Sodium Chloride 500 ml @ 500 mls/hr BOLUS ONCE IV Last administered on 05:33; Start 04/14/17 at 05:15; Stop 04/14/17 at 06:14; Status DC Piperacillin Sod/ Tazobactam Sod 50 ml @ 200 mls/hr Q6H IV Last administered on 04/20/17 05:23; Start 04/14/17 at 06:00 Heparin Sodium (Porcine) (Heparin Inj) 5,000 units Q8HR SQ Last administered on 04/20/17 05:23; Start 04/14/17 at 14:00 Pantoprazole Sodium (Protonix Inj) 40 mg Q24H IV PUSH Last administered on 04/19 08:27; Start 04/14/17 at 09:00 Acetaminophen/ Hydrocodone Bitart (Eckerman 5-325 Mg) 1 tab Q6H PRN PO pain 1-10 Last administered on 04/15/17 02:38; Start 04/14/17 at 08:30; Stop 04/15/17 at 11: 23; Status DC Atenolol (Tenormin) 50 mg STAT ONCE PO Last administered on 04/15/17 07:21; Start 04/15/17 at 07:30; Stop 04/15/17 at 07:31; Status DC Diltiazem HCl (Cardizem Inj) 20 mg ONCE ONCE IV PUSH Last administered on 10:44; Start 04/15/17 at 10:30; Stop 04/15/17 at 10:31; Status DC Diltiazem HCl 125 mg/Sodium Chloride 125 ml @ 5 mls/hr TITRATE PRN IV Tachycardia; Start 04/15/17 at 10:30; Stop 04/17/17 at 17:44; Status DC Sodium Chloride 1,000 ml @ 999 mls/hr BOLUS ONCE IV Last administered on 10:45; Start 04/15/17 at 10:45; Stop 04/15/17 at 11:45; Status DC Sodium Chloride 1,000 ml @ 150 mls/hr Q6H40M IV Last administered on 04/16/17 03:54; Start 04/15/17 at 11:00; Stop 04/17/17 at 08:08; Status DC Vancomycin HCl 1250 mg/Sodium Chloride 262.5 ml @ 262.5 mls/ hr ONCE ONCE IV ; Start 04/15/17 at 10:45; Stop 04/15/17 at 11:44; Status UNV Pharmacy Profile Note 0 ml @ 0 mls/hr UNSCH OTHER ; Start 04/15/17 at 10:45; Stop 04/18/17 at 12:08; Status DC Sodium Chloride (NS Flush) 2 ml UNSCH PRN IV FLUSH FLUSH AFTER USING IV ACCESS ; Start 04/15/17 at 10:45 Sodium Chloride (NS Flush) 2 ml BID IV FLUSH Last administered on 04/19/17 21: 23; Start 04/15/17 at 10:45 Acetaminophen (Tylenol) 650 mg Q6H PRN PO PAIN SCALE 1 TO 2 Last administered on 04/20/17 01:26; Start 04/15/17 at 10:45 Oxycodone/ Acetaminophen (Percocet 5-325 Mg) 1 tab Q6H PRN PO PAIN SCALE 3 TO 5; Start 04/15/17 at 10:45; Stop 04/15/17 at 19:28; Status DC Oxycodone/ Acetaminophen (Percocet 10-325 Mg) 1 tab Q6H PRN PO PAIN SCALE 6 TO 10; Start 04/15/17 at 10:45; Stop 04/15/17 at 19:28; Status DC Morphine Sulfate (Morphine Inj) 2 mg Q3H PRN IV Pain 3-5; if unable to take PO Last administered on 04/15/17 16:12; Start 04/15/17 at 10:45; Stop 04/15/17 at 19: 28; Status DC Morphine Sulfate (Morphine Inj) 4 mg Q3H PRN IV Pain 6-10;if unable to take PO ; Start 04/15/17 at 10:45; Stop 04/15/17 at 19:28; Status DC Naloxone HCl (Narcan Inj) 0.4 mg UNSCH PRN IV SEE LABEL COMMENTS; Start at 10:45 Senna/Docusate Sodium (Miranda-Colace) 1 tab BID PO Last administered on 04/17/17 09:47; Start 04/15/17 at 21:00; Stop 04/18/17 at 10:12; Status DC Magnesium Hydroxide (Milk Of Magnesia Liq) 30 ml Q12H PRN PO MILD - MODERATE CONSTIPATION; Start 04/15/17 at 10:45 Sennosides (Senokot) 17.2 mg Q12H PRN PO MODERATE - SEVERE CONSTIPATION; Start 04/15/17 at 10:45 Bisacodyl (Dulcolax Supp) 10 mg DAILY PRN RECTAL SEVERE CONSITIPATION; Start at 10:45 Lactulose (Lactulose Liq) 30 ml DAILY PRN PO SEVERE CONSITIPATION; Start at 10:45; Stop 04/15/17 at 11:51; Status DC Vancomycin HCl 1500 mg/Sodium Chloride 515 ml @ 250 mls/hr ONCE ONCE IV ; Start 04/15/17 at 14:00; Stop 04/15/17 at 16:03; Status DC Acetaminophen/ Hydrocodone Bitart (Eckerman 5-325 Mg) 1 tab Q6H PRN PO PAIN SCALE 5 TO 10 Last administered on 04/20/17 05:24; Start 04/15/17 at 19:30 Atorvastatin Calcium (Lipitor) 10 mg [id number]@0900 PO Last administered on 08:26; Start 04/16/17 at 09:30 Vancomycin HCl 1500 mg/Sodium Chloride 515 ml @ 257.5 mls/ hr ONCE ONCE IV Last administered on 04/16/17 13:00; Start 04/16/17 at 11:00; Stop 04/16/17 at 12: 59; Status DC Polyethylene Glycol (Miralax) 17 gm DAILY PRN PO no bowel movement Last administered on 04/16/17 13:54; Start 04/16/17 at 09:45 Metoprolol Tartrate (Lopressor) 25 mg BID PO Last administered on 04/17/17 21: 04; Start 04/16/17 at 21:00; Stop 04/18/17 at 09:03; Status DC Metoprolol Tartrate (Lopressor) 50 mg BID PO Last administered on 04/19/17 21: 22; Start 04/18/17 at 10:00 Diltiazem HCl (Cardizem) 30 mg Q6HR PO Last administered on 04/20/17 05:23; Start 04/18/17 at 12:00 Vancomycin HCl 1500 mg/Sodium Chloride 515 ml @ 257.5 mls/ hr ONCE ONCE IV ; Start 04/18/17 at 11:00; Stop 04/18/17 at 12:05; Status DC Magnesium Sulfate/ Dextrose 100 ml @ 100 mls/hr Q1H IV Last administered on 10:55; Start 04/18/17 at 10:00; Stop 04/18/17 at 11:59; Status DC Sodium Phosphate 30 mmol/Sodium Chloride 260 ml @ 43.333 mls/ hr ONCE ONCE IV Last administered on 04/18/17 14:27; Start 04/18/17 at 11:00; Stop 04/18/17 at 16:59; Status DC Potassium Phosphate 30 mmol/ Sodium Chloride 260 ml @ 43.333 mls/ hr ONCE ONCE IV Last administered on 04/18/17 11:31; Start 04/18/17 at 09:15; Stop 05/25 at 15:14; Status DC Potassium Phosphate 30 mmol/ Sodium Chloride 260 ml @ 43.333 mls/ hr ONCE ONCE IV Last administered on 04/18/17 11:31; Start 04/18/17 at 11:15; Stop 05/25 at 17:14; Status DC Lactobacillus Acidophilus (Lactinex) 1 tab TID PO Last administered on 17:01; Start 04/18/17 at 13:00 Senna/Docusate Sodium (Miranda-Colace) 1 tab BID PRN PO MILD CONSTIPATION; Start 04/18/17 at 10:15 Potassium Chloride (KCl) 40 meq Q12HR PO Last administered on 04/19/17 21:22; Start 04/19/17 at 09:45 Calcium Gluconate 2 gm/Sodium Chloride 120 ml @ 120 mls/hr ONCE ONCE IV Last administered on 04/19/17 11:15; Start 04/19/17 at 12:00; Stop 04/19/17 at 12:59 ; Status DC Urinary Catheter: No Vascular Central Line Catheter: No A/P Assessment and Plan Impression: A. fib with RVR-atenolol has been restarted. We'll need to get an Cardizem IV push 20 mg. And Cardizem drip and transferred to the ICU will consult cardiology and get an echocardiogram and trend troponins--IN CVPCU NOW-- WEAN OFF CARDIZEM DRIP Hypotension with reflex tachycardia- suspect volume Depletion. Also compounded by pain medicine as well.-Appears that patient has a history of what sounds like atrial fibrillation Rhabdomyolysis trending down Acute renal failure- secondary to dehydration possible early septic shock- AGGRESSIVE FLUID REHYDRATION Ruptured diverticula as well as with early abscess formation. No drainable fluid per IR. Procedure was canceled Leukocytosis with left shift and bandemia on antibiotics ZOSYN History of Hypertension CAD status post cardiac stents 2 TIA 2 Sinus tachycardia per patient Atrial fibrillation with RVR continue on Cardizem drip consult cardiology trend troponins echocardiogram- WEAN OFF CARDIZEM DRIP- PO BETA AND CARDIZEM HYPOTENSION- GIVE IV FLUIDS NS BOLUS 1 LITER--IMPROVED- RESOLVED RENAL INSUFFICIENCY- IMPROVED ABDOMINAL PAIN IMPROVING- DIET ADVANCED BY CRS HYPOMAG- REPLACE HYPOPHOS- REPLACE ADD LACTINEX FOR DIARRHEA HYPOKALEMIA REPLACE Plan: Continue IV fluids--HEPLOCK IV Also continue maintenance IV fluids with normal saline at 1 50 cc per hour.-- HEPLOCK IV We will recheck labs in a.m. Adjust medications We'll switch antibiotics to Zosyn. Hold narcotics. Will manage pain will discontinue Toradol Use narcotics for pain control If the blood pressure permits, we can slowly and small dose pain medications. Patient is quite truly in pain. Restart atenolol continue on Cardizem drip- OF CARDIZEM DRIP Bladder scan to make sure the patient's acute renal failure is not from dehydration. We'll follow CPK, and renal function. If needed, would start patient on bicarbonate drip. We will follow patient along with you. DVT prophylaxiswith heparin. GI prophylaxis on pantoprazole. See orders A.m. labs Transferred to ICU for close monitoring and Cardizem drip-- OUT OF ICU- OFF CARDIZEM DRIP CHIP RN AND PT CAN DC TO HOME WHEN CLEARED BY CRS WILL PLACE ON Gagan Mc DO Apr 20, 2017 08:54
[2017-04-20] MEDS ORDERED: ASPI81TA11 PO (09:01)
[2017-04-20] MEDS ORDERED: DILT31TA PO (09:01)
[2017-04-20] MEDS ORDERED: AUGM500T7 PO (09:01)
[2017-04-20] MEDS ORDERED: PROT40TA PO (09:01)
[2017-04-20] MEDS ORDERED: LACT PO (09:01)
[2017-04-20] MEDS ORDERED: TRIA37.5 PO (09:01)
[2017-04-20] MEDS ORDERED: ALPR.5 PO (09:01)
[2017-04-20] MEDS ORDERED: HYDR-3516 PO (09:01)
[2017-04-20] MEDS ORDERED: POTA-243 PO (09:01)
[2017-04-20] MEDS ORDERED: METO-309 PO (09:01)
--- NOTE | 2017-04-20 16:24 | HHI.PR ---
Subjective Remarks Diverticulitis with microperforation and abscess still complains of pain, wants narcotics Objective Vital Signs Date Time Temp Pulse Resp B/P (MAP) Pulse Ox O2 Delivery O2 Flow Rate FiO2 04/20/17 11:30 97 Room Air 04/20/17 11:00 98.7 92 20 152/91 (111) 97 04/20/17 10:00 88 04/20/17 09:00 88 04/20/17 08:00 86 04/20/17 08:00 92 Room Air 04/20/17 07:13 98.8 94 18 133/82 (99) 97 04/20/17 07:00 88 04/20/17 06:23 98.7 84 16 144/86 (105) 95 04/20/17 06:22 97 Room Air 04/20/17 06:00 88 04/20/17 05:00 90 04/20/17 04:00 90 04/20/17 03:00 90 04/20/17 02:00 86 04/20/17 01:00 78 04/20/17 00:05 98.3 75 16 161/96 (117) 94 04/20/17 00:00 78 04/19/17 23:53 97 Room Air 04/19/17 23:00 80 04/19/17 22:00 80 04/19/17 21:00 80 04/19/17 20:00 98.1 92 16 170/96 (120) 95 04/19/17 20:00 78 04/19/17 19:35 97 Room Air 04/19/17 19:00 78 04/19/17 18:45 87 04/19/17 17:24 88 04/19/17 16:45 84 I/O 04/19/17 04/19/17 04/19/17 04/20/17 04/20/17 04/20/17 07:00 15:00 23:00 07:00 15:00 23:00 Intake Total 480 ml 480 ml 960 ml Output Total 2 ml 700 ml Balance 478 ml 480 ml 260 ml Intake Oral 480 ml 480 ml 960 ml Output Urine Total 700 ml Stool Total 2 ml # Voids 1 3 # Bowel Movements 3 2 Result Diagram: 04/20/17 0535 04/20/17 0535 Objective Remarks Abdomen soft, nondistended, minimal tenderness LLQ Assessment and Plan Assessment and Plan Ok for discharge per Medicine and Cardiology Pt has no ride until tomorrow am Will d/c in am followup with me 1 week, Cardiology/Medicine as directed Sarahi Walls MD Apr 20, 2017 16:24
[2017-04-21] VITALS (13 sets, daily range): BP systolic 148–160; BP diastolic 79–93; PULSE 74–103; RESP 18–22; TEMP 98.3–98.7; O2SAT 98
[2017-04-21] MEDS: PIPERACIL-TAZO 3.375 GM PREMIX 50 ML IV SCH ×2 (01:02→06:38)
[2017-04-21] MEDS: ACETAMINOPHEN 325 MG TAB PO PRN (02:59)
[2017-04-21] MEDS: HEPARIN SODIUM - SQ 10,000 UNITS/ML VIAL SQ SCH (06:00)
[2017-04-21] MEDS: DILTIAZEM HCL 30 MG TAB PO SCH ×3 (06:37→10:57)
[2017-04-21] MEDS: PANTOPRAZOLE SODIUM 40 MG VIAL IV PUSH SCH (08:28)
[2017-04-21] MEDS: SODIUM CHLORIDE 0.9% FLUSH 10 ML FLUSH IV FLUSH SCH (08:28)
[2017-04-21] MEDS: LACTOBACILLUS ACIDOPHILUS TAB PO SCH (08:28)
[2017-04-21] MEDS: POTASSIUM CHLORIDE 10 MEQ CONTROLLED RELEASE TAB PO SCH (08:28)
[2017-04-21] MEDS: ASPIRIN EC 81 MG TABEC PO SCH (08:28)
[2017-04-21] MEDS: METOPROLOL TARTRATE 50 MG TAB PO SCH (08:29)
[2017-04-21] MEDS: ATORVASTATIN 10 MG TAB PO SCH (08:29)
[2017-04-21] MEDS: ACETAMINOPHEN/HYDROcodone 325 MG/5 MG TAB PO PRN (10:52)
--- NOTE | 2017-05-04 22:34 | MD ---
cc: SARAHI WALLS M.D. ADMISSION DATE: 04/12/2017 DISCHARGE DATE: 04/21/2017 ADMISSION DIAGNOSIS Diverticulitis with microperforation Coronary artery disease Hypertension Cerebrovascular disease, brain aneurysm Gastroesophageal reflux disease Gout. DISCHARGE DIAGNOSIS Same HOSPITAL COURSE The patient is a 77-year-old female with a history of diverticulitis who came to the hospital with severe abdominal pain. CT scan was performed which revealed diverticulitis with microperforation. She was treated non-operatively, with gradual resolution of her symptoms. During her hospitalization she did have some paroxysmal atrial fibrillation with rapid ventricular rate and hypotension. She was seen by her membership correspondent, Dr. Gillespie, and treated with resolution of the rapid ventricular rate. She was discharged on April 21 2017 with instruction to follow up with myself and Dr. Gillespie in the office. Sarahi Walls MD KW/EO /5:24 PM /10:26 PM MTDD
== END 2017-04-21 12:00 | disposition home or self-care (01) | DRG 392 ==
LOC: PHED 11:26 → PHEDA 13:36 → N07B 16:24 → N03B 04-15 11:01 → HCIN 04-15 18:20
PROVIDERS: ADMIT Colon & Rectal Surgery; ATTEND Colon & Rectal Surgery
DX: K57.20 Diverticulitis of large intestine with perforation and abscess without bleeding (principal); N17.9 Acute kidney failure, unspecified; I95.9 Hypotension, unspecified; M62.82 Rhabdomyolysis; I48.0 Paroxysmal atrial fibrillation; E86.0 Dehydration; I12.9 Hypertensive chronic kidney disease with stage 1 through stage 4 chronic kidney disease, or unspecified chronic kidney disease; N18.3 Chronic kidney disease, stage 3 (moderate); E83.42 Hypomagnesemia; E83.39 Other disorders of phosphorus metabolism; I25.10 Atherosclerotic heart disease of native coronary artery without angina pectoris; I25.2 Old myocardial infarction; Z95.5 Presence of coronary angioplasty implant and graft; M10.9 Gout, unspecified; Z86.73 Personal history of transient ischemic attack (TIA), and cerebral infarction without residual deficits; K21.9 Gastro-esophageal reflux disease without esophagitis; R00.0 Tachycardia, unspecified; E78.5 Hyperlipidemia, unspecified; E87.6 Hypokalemia; Z79.82 Long term (current) use of aspirin
CPT/HCPCS: 36600; 74176; 76937; 80048; 80053; 80202; 81001; 82550; 82552; 82805; 83036; 83605; 83690; 83735; 84100; 84439; 84443; 84484; 85007; 85025; 85027; 85610; 85730; 93005; 93306; 96365; 96375; C9113; J0610; J0713; J1170; J1644; J1885; J2270; J2405; J2543; J3370; J3475; J7030; J7040; J7042; J7050

== ENCOUNTER → 2017-06-24 | Outpatient (CLI) | payer MEDICARE, BC ==
[~2017-06-24] MED LIST changes: -ACET325 PO; +ALLO300T2 PO; +ALPR.5 PO; -ALPR0.5T99 PO; -ASPI81 PO; +ASPI81TA23 PO; -ATEN1TAB75 PO; +AUGM500T7 PO; -B COTAB7 PO; -CALC600T34 PO; -CIPR500T4 PO; +COLC1TAB15 PO; +DILT31TA PO; -GUAN1 PO; +GUAN1TAB PO; +HYDR-3516 PO; +KLOR10TA PO; +LACT PO; -MAXZ25 PO; +METO-309 PO; -METR500I3 PO; +PROT40TA PO; +ROSU1TAB4 PO; -ROSU5 PO; -TELM40 PO; +TRIA37.5 PO
[2017-06-24 13:11] LABS: HEMATOCRIT 28.2 % (35.0-46.0); MEAN CELL VOLUME 84.4 FL (80.0-100.0); MEAN CORPUSCULAR HEMOGLOBIN 27.4 PG (27.0-34.0); MEAN CORPUSCULAR HGB CONC 32.4 % (32.0-36.0); PLATELET COUNT 590 TH/MM3 (150-450); RED BLOOD COUNT 3.34 MIL/MM3 (4.00-5.30); RED CELL DISTRIBUTION WIDTH 18.4 % (11.6-17.2); REVIEW FLAG FINAL; WHITE BLOOD COUNT 10.5 TH/MM3 (4.0-11.0)
[2017-06-24 13:16] LABS: BLOOD, URINE NEG (NEG); GLUCOSE,URINE NEG (NEG); HYALINE CAST, URINE 1 /lpf (RARE); KETONE, URINE NEG (NEG); MUCUS URINE FEW /lpf (OCC); NITRITE,URINE NEG (NEG); SQUAMOUS EPITHELIAL CELL URINE <1 /hpf (0-5); URINE COLOR YELLOW (YELLW/STRAW)
[2017-06-24 13:24] LABS: ANION GAP 9 MEQ/L (5-15); AST (GOT) 24 U/L (15-37); BICARBONATE 25.2 MEQ/L (21.0-32.0); BLOOD UREA NITROGEN 9 MG/DL (7-18); CHLORIDE 98 MEQ/L (98-107); GLOMERULAR FILTRATION RATE 76 ML/MIN (>89); SODIUM (NA) 132 MEQ/L (136-145)
[2017-06-24 13:26] LABS: GLUCOSE,FASTING 93 MG/DL (74-99)
[2017-06-24 13:32] LABS: ALKALINE PHOSPHATASE 59 U/L (45-117); ALT (GPT) 24 U/L (10-53); HDL CHOLESTEROL 34.5 MG/DL (40.0-60.0); LDL CHOLESTEROL 82 MG/DL (0-99); LDL CHOLESTEROL DIRECT 99 MG/DL (0-99); TOTAL BILIRUBIN ADULT 0.4 MG/DL (0.2-1.0); TRANSFERRIN IRON PROFILE 156 MG/DL (200-360)
== END ==
LOC: PLAB 08:22
PROVIDERS: ATTEND Internal Medicine
DX: I25.10 Atherosclerotic heart disease of native coronary artery without angina pectoris (principal); D64.9 Anemia, unspecified; I10 Essential (primary) hypertension
CPT/HCPCS: 36415; 80053; 80061; 81001; 83540; 83550; 83721; 85027

== ENCOUNTER → 2017-06-30 | Outpatient (CLI) | payer MEDICARE, BC | LOC: PLAB 12:41 | PROVIDERS: ATTEND Internal Medicine | DX: Z13.9 Encounter for screening, unspecified (principal) | CPT/HCPCS: 36415; 84132 ==

== ENCOUNTER → 2017-08-16 | Outpatient (CLI) | payer MEDICARE, BC ==
[2017-08-16 11:44] LABS: ALBUMIN 2.6 GM/DL (3.4-5.0); AST (GOT) 18 U/L (15-37); BICARBONATE 26.1 MEQ/L (21.0-32.0); BLOOD UREA NITROGEN 9 MG/DL (7-18); CALCIUM 9.9 MG/DL (8.5-10.1); CHLORIDE 99 MEQ/L (98-107); CREATININE 0.84 MG/DL (0.50-1.00); GLOMERULAR FILTRATION RATE 66 ML/MIN (>89); GLUCOSE,FASTING 91 MG/DL (74-99); SODIUM (NA) 133 MEQ/L (136-145)
[2017-08-16 11:45] LABS: ALT (GPT) 12 U/L (10-53); CHOLESTEROL 164 MG/DL (120-200); TRIGLYCERIDES 141 MG/DL (42-150)
[2017-08-16 11:48] LABS: ALKALINE PHOSPHATASE 58 U/L (45-117); CHOLESTEROL/ HDL RATIO 4.39 RATIO; HDL CHOLESTEROL 37.3 MG/DL (40.0-60.0); LDL CHOLESTEROL 99 MG/DL (0-99); TOTAL BILIRUBIN ADULT 0.3 MG/DL (0.2-1.0); TOTAL PROTEIN 8.1 GM/DL (6.4-8.2)
== END ==
LOC: PLAB 08:17
PROVIDERS: ATTEND Internal Medicine Cardiovascular Disease
DX: I48.91 Unspecified atrial fibrillation (principal); E78.2 Mixed hyperlipidemia; I10 Essential (primary) hypertension; I25.10 Atherosclerotic heart disease of native coronary artery without angina pectoris; E78.5 Hyperlipidemia, unspecified
CPT/HCPCS: 36415; 80053; 80061

== ENCOUNTER → 2017-09-06 | Outpatient (CLI) | payer MEDICARE, BC ==
[2017-09-06 09:34] LABS: HEMATOCRIT 29.7 % (35.0-46.0); HEMOGLOBIN 9.4 GM/DL (11.6-15.3); MEAN CORPUSCULAR HEMOGLOBIN 26.6 PG (27.0-34.0); MEAN CORPUSCULAR HGB CONC 31.7 % (32.0-36.0); MEAN PLATELET VOLUME 7.7 FL (7.0-11.0); PLATELET COUNT 458 TH/MM3 (150-450); RED BLOOD COUNT 3.54 MIL/MM3 (4.00-5.30); RED CELL DISTRIBUTION WIDTH 19.1 % (11.6-17.2); WHITE BLOOD COUNT 10.6 TH/MM3 (4.0-11.0)
[2017-09-06 11:15] LABS: ALBUMIN 2.9 GM/DL (3.4-5.0); ALT (GPT) 12 U/L (10-53); AST (GOT) 16 U/L (15-37); BICARBONATE 25.9 MEQ/L (21.0-32.0); BLOOD UREA NITROGEN 12 MG/DL (7-18); CHLORIDE 102 MEQ/L (98-107); CREATININE 0.71 MG/DL (0.50-1.00); GLOMERULAR FILTRATION RATE 80 ML/MIN (>89); GLUCOSE,FASTING 92 MG/DL (74-99); IRON (FE) 28 MCG/DL (50-170); SODIUM (NA) 135 MEQ/L (136-145)
[2017-09-06 11:18] LABS: % SATURATION IRON PROFILE 11.3 % (20-50); ALKALINE PHOSPHATASE 59 U/L (45-117); TOTAL BILIRUBIN ADULT 0.2 MG/DL (0.2-1.0); TOTAL IRON BINDING CAPACITY 248 MCG/DL (250-450); TOTAL PROTEIN 8.1 GM/DL (6.4-8.2)
== END ==
LOC: PLAB 08:54
PROVIDERS: ATTEND Internal Medicine
DX: D64.9 Anemia, unspecified (principal)
CPT/HCPCS: 36415; 80053; 83540; 83550; 84550; 85027

== ENCOUNTER → 2017-10-04 | Outpatient (CLI) | payer MEDICARE, BC ==
[2017-10-04 13:48] LABS: HEMATOCRIT 27.8 % (35.0-46.0); HEMOGLOBIN 9.1 GM/DL (11.6-15.3); MEAN CELL VOLUME 87.3 FL (80.0-100.0); MEAN CORPUSCULAR HEMOGLOBIN 28.7 PG (27.0-34.0); MEAN CORPUSCULAR HGB CONC 32.9 % (32.0-36.0); MEAN PLATELET VOLUME 7.4 FL (7.0-11.0); PLATELET COUNT 459 TH/MM3 (150-450); RED BLOOD COUNT 3.18 MIL/MM3 (4.00-5.30); RED CELL DISTRIBUTION WIDTH 18.6 % (11.6-17.2); WHITE BLOOD COUNT 17.9 TH/MM3 (4.0-11.0)
[2017-10-04 14:12] LABS: % SATURATION IRON PROFILE 13.4 % (20-50); ALBUMIN 2.9 GM/DL (3.4-5.0); ALT (GPT) 12 U/L (10-53); AST (GOT) 16 U/L (15-37); BICARBONATE 25.3 MEQ/L (21.0-32.0); BLOOD UREA NITROGEN 18 MG/DL (7-18); CHLORIDE 91 MEQ/L (98-107); CREATININE 0.91 MG/DL (0.50-1.00); GLOMERULAR FILTRATION RATE 60 ML/MIN (>89); GLUCOSE,RANDOM 102 MG/DL (74-106); IRON (FE) 32 MCG/DL (50-170); SODIUM (NA) 126 MEQ/L (136-145); TOTAL IRON BINDING CAPACITY 238 MCG/DL (250-450)
[2017-10-04 14:13] LABS: ALKALINE PHOSPHATASE 62 U/L (45-117); TOTAL BILIRUBIN ADULT 0.4 MG/DL (0.2-1.0); TOTAL PROTEIN 8.2 GM/DL (6.4-8.2)
== END ==
LOC: PLAB 11:21
PROVIDERS: ATTEND Internal Medicine
DX: D64.9 Anemia, unspecified (principal); E03.9 Hypothyroidism, unspecified
CPT/HCPCS: 36415; 80053; 83540; 83550; 85027

== ENCOUNTER → 2017-11-02 | Outpatient (CLI) | payer MEDICARE, BC ==
[2017-11-02 10:22] LABS: HEMATOCRIT 30.8 % (35.0-46.0); MEAN CELL VOLUME 91.3 FL (80.0-100.0); MEAN CORPUSCULAR HEMOGLOBIN 29.5 PG (27.0-34.0); MEAN CORPUSCULAR HGB CONC 32.3 % (32.0-36.0); PLATELET COUNT 501 TH/MM3 (150-450); RED BLOOD COUNT 3.37 MIL/MM3 (4.00-5.30); RED CELL DISTRIBUTION WIDTH 19.9 % (11.6-17.2); WHITE BLOOD COUNT 6.6 TH/MM3 (4.0-11.0)
[2017-11-02 10:26] LABS: ALT (GPT) 12 U/L (10-53); AST (GOT) 17 U/L (15-37); BICARBONATE 27.9 MEQ/L (21.0-32.0); BLOOD UREA NITROGEN 14 MG/DL (7-18); CALCIUM 9.9 MG/DL (8.5-10.1); CHLORIDE 104 MEQ/L (98-107); CREATININE 0.85 MG/DL (0.50-1.00); GLOMERULAR FILTRATION RATE 65 ML/MIN (>89); GLUCOSE,FASTING 85 MG/DL (74-99); SODIUM (NA) 139 MEQ/L (136-145); TOTAL IRON BINDING CAPACITY 293 MCG/DL (250-450)
[2017-11-02 10:29] LABS: % SATURATION IRON PROFILE 14.4 % (20-50); ALKALINE PHOSPHATASE 66 U/L (45-117); IRON (FE) 42 MCG/DL (50-170); TOTAL BILIRUBIN ADULT 0.2 MG/DL (0.2-1.0); TOTAL PROTEIN 8.2 GM/DL (6.4-8.2)
== END ==
LOC: PLAB 08:33
PROVIDERS: ATTEND Internal Medicine
DX: D64.9 Anemia, unspecified (principal)
CPT/HCPCS: 36415; 80053; 83540; 83550; 85027